=== PATIENT | female | born 1955 | race Caucasian/White ===

== ENCOUNTER 2023-03-14 13:21 | Outpatient (RCR) | payer OTHER, SELFPAY | END 2023-03-14 23:59 | disposition home or self-care (01) | LOC: RPT 13:21 | PROVIDERS: ATTENDING PHYSICIAN Internal Medicine; FAMILY PHYSICIAN Nurse Practitioner Family | DX: M25.561 Pain in right knee (principal); M25.569 Pain in unspecified knee (principal); R26.2 Difficulty in walking, not elsewhere classified; Z73.6 Limitation of activities due to disability | CPT/HCPCS: 97110; 97112 ==

== ENCOUNTER 2023-04-23 00:24 | Emergency (ER) | payer OTHER, SELFPAY ==
[2023-04-23 00:27] VITALS: BP 201/128
--- NOTE | 2023-04-23 01:45 | EDRN ---
Pt lying on stretcher with wet cloth on her head. Pt says she always gets pressure in her head and puts a cool cloth on it. Pt adds she has pain in her L groin that is pulling. Pt also has pain in neck 'the nerves are always changing.' Pt says
the pressure in her head tonight was 'very intense' and she was 'unable to get settled.' Pt started diltiazem yesterday morning. Pt says she started this 1 week ago for htn. Pt denies headache 'it's just pressure, I've had it for years it's just
very intense, squeezing. I always have ringing in my ears that seems to be changing it's pattern.' No cp, sob, n/v, fever/chills/cough.
[2023-04-23 01:52] VITALS: BP 166/72
--- NOTE | 2023-04-23 01:57 | EDRN ---
Pt declined ice pack for her head stating it would be too much. Pt lying supine, covered with a sheet. All lights in room turned off. Hartman and Kamar relaxation music put on TV for pt per her request. Pt holding cool wet cloth to her forehead.
[2023-04-23 02:00] VITALS: BP 167/71
--- NOTE | 2023-04-23 02:23 | ED.GENMED ---
History of Present Illness
General
Chief Complaint: Anxiety
Source: patient
Time Seen by Provider: 04/23/23 02:10
Nursing documentation reviewed up to this point in time: agreed with
Travel History
Have you had any contact with someone who has COVID-19?: No
Do you have any symptoms of coronavirus? Fever > 100 degrees, chills, cough, shortness of breath, sore throat, loss of taste or smell, muscle aches, or headache?: No
History of Present Illness
History of Present Illness:
67-year-old female presents with anxiety. She states that she has been 'thinking too much '. Patient is stressed. She states that she started taking chamomile and homeopathic anxiety remedies. Patient states that she has been anxious since
November, but has not started her homeopathic regimen until 5 days ago. Patient states that she had a headache which is similar to the previous headaches that she has had. She refuses lab work, imaging, or any treatments in the emergency
department. She is resting in the room with a wet towel on her forehead which she states is helping. Denies fever, chills, chest pain, or shortness of breath. Reports no suicidal or homicidal ideation, intent, or plan.
Vital signs are stable. Patient not hypoxic
Nursing note reviewed. I agree with nursing documentation up to this point in time.
Home Meds and allergies reviewed.
NUMBER AND COMPLEXITY OF PROBLEMS ADDRESSED AT THE ENCOUNTER
� Chronic conditions affecting care: Anxiety
� Acute Exacerbation and/or Progression of Chronic Illness:
� Differential Diagnosis includes: Anxiety, panic attacks
AMOUNT AND/OR COMPLEXITY OF DATA TO BE REVIEWED AND ANALYZED
I performed an independent evaluation of the following and my interpretation is:
EKG: EKG shows sinus tachycardia rate of 102 with otherwise normal intervals, normal axis. No evidence of acute ischemia present.
CT:
X-rays:
Ultrasound:
Laboratory Studies: Patient refused laboratory studies at this point
Other:
Review of other/old records:
Clinical information was obtained by an independent historian:
Prescriptions/Medications Considered but not given:
Further testing considered but not performed:
RISK OF COMPLICATIONS AND/OR MORBIDITY OR MORTALITY OF PATIENT MANAGEMENT
Social determinants of health affecting care: Good Social Support
Discussion with other providers:
Escalation of care including admission/observation vs risk of discharge considered:
CRITICAL CARE NOTE:
Total Time (exclusive of procedures):
Update:
Past History
Past History
ED Past Medical History: HTN, NIDDM (?) and Other (Diverticulosis, noncompliant with medication)
Social History
Tobacco: Non-smoker
Alcohol: Former
Drug: None
Living: with family
Employment: Other
Family History
Family History: Other
Phy Exam
General Physical Exam
General Presentation: well appearing and mild distress
General age: appears stated age
General Skin: warm and dry
General Habitus: normal
General Mental: alert
Cardiovascular Exam
Cardiovascular Exam: regular rate/rhythm and no edema
Pulmonary Exam
Pulmonary Exam: lungs clear and no respiratory distress
Neurological Exam
Neurological Exam: alert
Skin Exam
Skin Exam: normal color and warm/dry
Psychiatric Exam
Psychiatric Exam: normal mood/affect
Course
Orders/Labs/Results
Orders:
Orders
04/23/23 00:29
Electrocardiogram (*1) Urgent
Reason for Study: Hypertension, Benign
EKG- Treatment ONCE
Vital Signs
Initial and Last Documented VS:
Initial Vital Signs
Temp Pulse Resp BP Pulse Ox
98 F 116 18 201/128 100
04/23/23 00:27 04/23/23 00:27 04/23/23 00:27 04/23/23 00:27 04/23/23 00:27
Last Documented Vital Signs
Temp Pulse Resp BP Pulse Ox
98 F 78 12 145/69 100
04/23/23 00:27 04/23/23 02:30 04/23/23 02:30 04/23/23 02:30 04/23/23 00:27
*Critical Care Note
Total Time (30-74mins, 75-104mins- exclusive of procedures): Not Applicable
Update Note
Update Note:
04/23/2023 0243 AM: Patient is getting dressed and ready to leave. She still does not want any further testing done. She does have a holistic treatment plan that she wishes to adhere to. Discussed return to ER instructions with.
ED Attending Note
-
Portions of this chart may have been created with voice recognition software.� Occasional wrong word or��sound alike� substitutions may have occurred due to the inherent limitations of voice recognition software.
Discharge Plan
Departure
Patient Disposition: Home (Routine Discharge)
Date of Disposition: 04/23/23
Time of Disposition: 02:44
Patient with high blood pressure during this ER visit?: Yes
Condition: Good
Discharge Problem:
Anxiety, Hypertension
Instructions: Anxiety, Adult (DC), BLOOD PRESSURE
Prescriptions:
No Action
Eliquis 5 mg Tablet
5 mg PO BID Qty: 60 0RF
diltiazem HCl
1 tab PO DAILY
Patient Comments:
pt does not know mg and says she started this 04/16/23
Referrals:
Contreras Eastman CRNP [Family Provider] - Next open appointment
Activity Restrictions/Additional Instructions:
It was a pleasure meeting you and taking part in your care. We hope for your continued healing and wellness.
Please read discharge instructions in their entirety. However, they are for general education and may not describe your exact diagnosis at discharge. Information on your ER visit and medical conditions were discussed with you along with appropriate
follow up information...
If indicated, please take your medications as instructed and indicated on discharge paperwork.
Please schedule a follow up appointment as directed. Call to schedule an appointment
Please return to the emergency department with ANY change in, persisting, or worsening of symptoms. If any of your symptoms do not improve, or persist, or become more severe within 6-12 hours, please return to the emergency department for further
care.
Please return to the emergency department if you develop a headache, neck pain/stiffness, fever greater than 100.4F, chest pain, shortness of breath, persistent nausea, vomiting, slurred speech, difficulty walking, numbness/tingling, weakness, signs
of infection or any other symptoms that are worrisome to you.
If you have any questions or concerns please do not hesitate to call the Hospital at
Interventions
Interventions:
*Risk Screen - Suicide Last Done: 04/23/23 00:27
*General Assessment Last Done: 04/23/23 01:42
*Neglect/Abuse Screening Last Done: 04/23/23 00:27
ED- Fall Risk Assessment Last Done: 04/23/23 01:45
*ED COVID-19 Vaccine History Last Done: 04/23/23 01:42
*Nursing Disposition Last Done: 04/23/23 02:45
ED-Psychological Assessment Last Done: 04/23/23 01:56
Discharge Date and Time
Discharge Date/Time: 04/23/23 02:45
[2023-04-23 02:30] VITALS: BP 145/69
--- NOTE | 2023-04-23 02:41 | EDRN ---
Pt called and asked to go to the bathroom. Pt says she feels better and is ready to go home. Dr Kim informed and will discharge pt.
== END 2023-04-23 02:45 | disposition home or self-care (01) ==
LOC: EMR 00:24
PROVIDERS: EMERGENCY PHYSICIAN Student in an Organized Health Care Education/Training Program; FAMILY PHYSICIAN Nurse Practitioner Family
DX: F41.9 Anxiety disorder, unspecified (principal); I10 Essential (primary) hypertension
CPT/HCPCS: 99283; 93005

== ENCOUNTER 2023-05-19 18:28 | Inpatient (IN) | payer OTHER, SELFPAY ==
[2023-05-19] VITALS (23 sets, daily range): BP systolic 96–198; BP diastolic 46–95; BMI 22.6
--- NOTE | 2023-05-19 16:56 | ED.GENMED ---
History of Present Illness
General
Chief Complaint: Bowel Problem
Source: patient
Exam Limitations: clinical condition
Time Seen by Provider: 05/19/23 16:45
Nursing documentation reviewed up to this point in time: agreed with
Travel History
Have you had any contact with someone who has COVID-19?: No
Do you have any symptoms of coronavirus? Fever > 100 degrees, chills, cough, shortness of breath, sore throat, loss of taste or smell, muscle aches, or headache?: No
History of Present Illness
History of Present Illness:
67-year-old female came to triage states she has some constipation lymphatics or backing out no bowel movement for few days right better she was vomiting coffee-ground like material, past medical history is unclear denies alcohol denies NSAIDs may
be taking Eliquis, unconfirmed, denies any prior abdominal surgeries
Past History
Past History
ED Past Medical History: HTN, NIDDM (?) and Other (Diverticulosis, noncompliant with medication)
Social History
Tobacco: Non-smoker
Alcohol: Former
Drug: None
Living: with family
Employment: Other
Family History
Family History: Other
Review of Systems
Review of Systems
All Other Systems: Not applicable
Phy Exam
Physical Exam
Physical Exam:
Physical Exam
General: Chronically ill-appearing vomiting dark material
Neck: No no jaundice
Heart: Tachycardic
Lungs: no acute respiratory distress. clear bilaterally
Abdomen: Soft mild diffuse
Neuro: Disoriented moves all extremities
Skin: no rash
Psychiatric: Odd affect,
Extremities: no edema.
Course
Orders/Labs/Results
Orders:
Orders
05/19/23 16:53
Iohexol [Omnipaque] See Protocol PO NOW STA
05/19/23 16:54
Electrocardiogram (*1) Urgent
Reason for Study: Fatigue / Weakness
EKG- Treatment ONCE
05/19/23 16:55
Ondansetron Injectable [Zofran] 4 mg IV NOW STA
Pantoprazole [Protonix IV] 40 mg IV NOW STA
05/19/23 17:03
Type+Screen Urgent
Ammonia Urgent
Complete Blood Count/With Diff Urgent
Comprehensive Metabolic Panel Urgent
Cortisol, Random Urgent
Comment: ADD ON
Lipase Urgent
Magnesium Urgent
PTT Urgent
Prothrombin Time Urgent
Serum Osmolality Urgent
Comment: ADD ON
TSH Urgent
Comment: ADD ON
05/19/23 18:00
3% Sodium Chloride 250 ml [Sodium Chloride 3%] 250 ml IV ONCE
05/19/23 18:03
Add On- LAB Urgent
Tests Added?: Serum osm, cortisol, TSH
05/19/23 18:06
Basic Metabolic Panel Urgent
05/19/23 18:09
CT Head W/o Iv Contrast Urgent
Comment:
Reason For Exam: coma
CR Chest Portable - 1 View Urgent
Comment:
Reason For Exam: coma
Reason Study Needs to be Portable: Patient Unstable
05/19/23 18:16
Admit/Transfer Patient As Directed
Co-Sign Provider:
Level of Care: Inpatient admission
Assign to:: ICU
Physician / Group: Cruzito
Diagnosis: Severe hyponatremia, coma
Reason for Hospitalization: hyponatremia
Expected length of stay greater than two midnights?: Yes
ELOS- Estimated Length of Stay in days: 5
I certify the patient meets the requirements for IP care: Yes
Urine Osmolality Random [Osmolality, Random Urine] Stat
Urine Sodium Stat
3% Sodium Chloride 250 ml [Sodium Chloride 3%] 250 ml IV ONCE
05/19/23 18:18
Code Status As Directed
Resuscitation Status: Full Code
05/19/23 18:53
ABG [Arterial Blood Gas] Urgent
%Oxygen/Room Air: ra
Abnormal Lab Results
05/19/23 05/19/23
17:03 18:06
RBC 3.83 L 10^6/uL
(4.20-5.40)
Hgb 11.8 L g/dL
(12.0-16.0)
Hct 32.6 L %
(37.0-47.0)
Absolute Lymphs (auto) 0.7 L 10^3/uL
(1.2-3.4)
Neutrophils % 78.9 H %
(42.2-75.2)
Lymphocytes % 11.7 L %
(20.5-51.1)
PT 15.4 H Sec
(11.4-14.6)
Sodium 107 L* mmol/L 108 L* mmol/L
(135-145) (135-145)
Potassium 3.4 L mmol/L 3.0 L mmol/L
(3.5-5.1) (3.5-5.1)
Chloride 80 L mmol/L 79 L mmol/L
(98-107) (98-107)
Carbon Dioxide 18 L mmol/L 15 L mmol/L
(22-30) (22-30)
Creatinine 0.4 L mg/dL 0.4 L mg/dL
(0.6-1.0) (0.6-1.0)
Glucose 161 H mg/dl 181 H mg/dl
(70-99) (70-99)
Calcium 8.2 L mg/dl 8.1 L mg/dl
(8.4-10.2) (8.4-10.2)
Magnesium 1.3 L mg/dl
(1.6-2.3)
Ammonia < 9 L umol/L
(9-30)
05/19/23 17:03
05/19/23 18:06
Vital Signs
Initial and Last Documented VS:
Initial Vital Signs
Temp Pulse Resp BP Pulse Ox
98.1 F 103 20 198/95 100
05/19/23 14:41 05/19/23 14:41 05/19/23 14:41 05/19/23 14:41 05/19/23 14:41
Last Documented Vital Signs
Temp Pulse Resp BP Pulse Ox
98.1 F 115 24 187/69 86
05/19/23 14:41 05/19/23 19:15 05/19/23 19:15 05/19/23 19:15 05/19/23 19:15
Procedures
Intubations
Procedure completed by: Cheli /Abel
Method of Intubation: glidescope
Tube size (cm): 7.5
Placement confirmed by: auscutation and capnography
Breath sounds after intubation: equal
Intubation complications: no complications
MDM/Problems Addressed
Differential Diagnosis Includes:
Electrolyte abnormality dehydration bowel obstruction intoxication
MDM/Problems Addressed:
Confusion volume
Chronic conditions affecting care: DM, HTN and Arrhythmia
Acute Exacerbation and/or Progression of Chronic Illness: DM, HTN and Arrhythmia
*Radiology
Radiology exam reviewed: preliminary read by ED provider
*Pulse Oximetry
Patient hypoxic: no
*EKG
Interpreted by ED Provider?: Yes
Interpretation: abnormal
Comparison EKG: no comparison EKG present
Heart Rate: 78
Rate: normal
Rhythm: sinus
Ischemia: non-specific ST changes
*Fisher Hand Line Interpretation
Rate: normal
Interpretation: normal
Heart Rate: 78
Rhythm: sinus
*Critical Care Note
Total Time (30-74mins, 75-104mins- exclusive of procedures): 35
Update Note
Update Note:
6 PM labs are coming back significant hyponatremia patient now with decreased responsiveness sugar noted no seizure-like activity message sent to hospitalist and nephrology
Will start 3% saline, check CT of the head prognosis appears guarded
CRITICAL CARE STATEMENT: A total of 35 minutes of critical care time was provided for this patient. This includes management of unstable vital signs, evaluation of the patient at bedside, reviewing the patient's pertinent medical records discussion
with EMS providers and patient's family in addition to discussion with consultants, review of old EKGs and review of pertinent medical records. This time with separate from time utilized to perform the aforementioned documented procedures
7:30 PM update patient now seizing did receive 3% given lorazepam nephrology at bedside, will be intubated for airway protection will check CT of the head as she is on Eliquis we believe a friend is at bedside states she does drink a lot of fluids
takes a lot of natural medications and remedies
Intubated without difficulty used succinylcholine propofol
ED Attending Note
-
Portions of this chart may have been created with voice recognition software.� Occasional wrong word or��sound alike� substitutions may have occurred due to the inherent limitations of voice recognition software.
Discharge Plan
Departure
Patient Disposition: Admit
Date of Disposition: 05/19/23
Time of Disposition: 19:13
Admit to: ICU
Presentation/result/management discussed w/ accepting MD/DO: Hospitalist
Patient with high blood pressure during this ER visit?: No
Condition: Critical
Covid-19: Not Applicable
Discharge Problem:
Acute hyponatremia, Seizure, Respiratory failure
Interventions
Interventions:
*Risk Screen - Suicide Last Done: 05/19/23 17:13
*General Assessment Last Done: 05/19/23 14:41
*Neglect/Abuse Screening Last Done: 05/19/23 17:13
*ED COVID-19 Vaccine History Last Done: 05/19/23 14:41
EN-Usmomm-Svrtolggvn Assessment Last Done: 05/19/23 17:13
[2023-05-19] MEDS: ZOFRAN 4 MG IV (16:59)
[2023-05-19] MEDS: OMNIPAQUE 50 ML PO (17:00)
[2023-05-19] MEDS: PROTONIX IV 40 MG IV (17:00)
[2023-05-19 17:17] LABS: % Basophils 0.6 % (0-2); % Eosinophils 0.2 % (0-6); % Immature Granulocytes 0.3 % (0-0.5); % Lymphocytes 11.7 % (20.5-51.1); % Monocytes 8.3 % (1.7-9.3); % Neutrophils 78.9 % (42.2-75.2); Absolute Lymphocytes 0.7 10^3/uL (1.2-3.4); Absolute Monocytes 0.5 10^3/uL (0.1-0.6); Absolute Neutrophils 4.9 10^3/uL (1.4-6.5); Hematocrit 32.6 % (37.0-47.0); Hemoglobin 11.8 g/dL (12.0-16.0); Mean Corp Hgb Conc. 36.2 g/dL (33.0-37.0); Mean Corpuscular Hgb 30.8 pg (27.0-31.0); Mean Corpuscular Volume 85.1 fL (81.0-99.0); Mean Platelet Volume 8.8 fL (7.4-10.4); Nucleated Red Blood Cells % 0 %; Platelet Count 243 10^3/uL (130-400); Red Blood Cell Count 3.83 10^6/uL (4.20-5.40); Red Cell Dist. Width 12.5 % (11.5-14.5); White Blood Cell Count 6.2 10^3/uL (4.8-10.8)
[2023-05-19 17:26] LABS: Ammonia < 9 umol/L (9-30)
[2023-05-19 17:35] LABS: INR 1.24; PT 15.4 Sec (11.4-14.6)
[2023-05-19 17:36] LABS: APTT 33.9 Sec (23.4-35.0)
[2023-05-19 17:55] LABS: ALT (SGPT) 17 U/L (0-35); AST (SGOT) 24 U/L (14-36); Albumin 4.3 g/dl (3.5-5.0); Alkaline Phosphatase 70 U/L (38-126); Blood Urea Nitrogen 10 mg/dl (7-17); Calcium 8.2 mg/dl (8.4-10.2); Carbon Dioxide 18 mmol/L (22-30); Chloride 80 mmol/L (98-107); Estimated Creatinine Clearance 68 ml/min; Glucose 161 mg/dl (70-99); Lipase 280 U/L (23-300); Potassium 3.4 mmol/L (3.5-5.1); Sodium 107 mmol/L (135-145); Total Bilirubin 0.5 mg/dl (0.2-1.3); Total Protein 6.5 g/dl (6.3-8.2); eGFR > 60.00
--- NOTE | 2023-05-19 18:25 | HPS.HSE ---
Family Physician
-
Family Physician: SNEHA Ruvalcaba
Chief Complaint
-
Constipation
History of Present Illness
67-year-old female came into the emergency room with complaints of constipation and vomiting.
I could not get any information from the patient as she is obtunded. Information gathered by chart review and speaking with the ER staff.
Medical History
Past Medical History
Past Medical History: Reports Other
Additional Past Medical History:
DM2
Essential hypertension
Paroxysmal atrial fibrillation
Hyperlipidemia
Depression
Anxiety
Past Surgical History: Reports None
Social History
Unable to obtain full social history at this time due to: Patient Non-verbal
Family History
Family History: Not pertinent
Allergies / Home Medications
Allergies reflects when Allergies were last updated in [facility].
Home Medications with original date entered in [facility]
Allergy/Medication List:
Allergies
Allergy/AdvReac Type Severity Reaction Status Date / Time
No Known Allergies Allergy Verified 05/19/23 14:46
Home Medications
apixaban 5 mg tablet (Eliquis) 5 mg PO BID Blood clot prevention/tx #60 tabs 11/24/22
diltiazem HCl 1 tab PO DAILY 04/23/23
If medication reconciliation has not been performed, why?: Unresponsive
Review of Systems
-
Unable to obtain full review of systems at this time due to: Acuity
Physical Exam
Vital Signs
Vital Signs
Temp Pulse Resp BP Pulse Ox
98.1 F 102 22 160/73 100
05/19/23 14:41 05/19/23 17:15 05/19/23 17:15 05/19/23 17:07 05/19/23 17:08
Physical Exam
General: Well Developed, Well Nourished, No Apparent Distress, Comfortable and Other (Obtunded)
HEENT: NormoCephalic and Anicteric
Respiratory: Clear
Cardiac: S1/S2 and Regular Rhythm
GI: Soft, Non Tender and Non Distended
Musculoskeletal: No Clubbing, No Cyanosis and No Edema
Skin: Warm and Dry
Neuro: Sedated
Hematologic/Lymphatic: No Lymphadenopathy
Psych: Calm
Laboratory Results
-
05/19/23 17:03
Laboratory Results
PT 15.4 Sec (11.4-14.6) H 05/19/23 17:03
INR 1.24 05/19/23 17:03
APTT 33.9 Sec (23.4-35.0) 05/19/23 17:03
Total Bilirubin 0.5 mg/dl (0.2-1.3) 05/19/23 17:03
AST 24 U/L (14-36) 05/19/23 17:03
ALT 17 U/L (0-35) 05/19/23 17:03
Alkaline Phosphatase 70 U/L (38-126) 05/19/23 17:03
Lipase 280 U/L (23-300) 05/19/23 17:03
Impression/Plan
-
Acute TME -currently obtunded, likely due to severe hyponatremia. Rule out stroke, seizures. Check CT head. Check ABG. Discussed with ED staff. Admit to ICU.
Profound hyponatremia -sodium 107. 3% saline started. Consult nephrology. Check urine osmolality, urine sodium. Fluid restriction.
Hypokalemia -replete intravenously. Check magnesium.
Normocytic anemia -appears chronic. Unclear etiology. Monitor for now.
Paroxysmal atrial fibrillation -appears to be on Eliquis.
Essential hypertension -blood pressure elevated. Need accurate home medication list.
DM2 with hyperglycemia -need to clarify home regimen. Check hemoglobin A1c.
Depression/anxiety
Full code -presumed.
--- NOTE | 2023-05-19 18:34 | PHANOTE ---
Med Rec Note:
Pt obtunded, home med list compiled from Dr Torres and ROGEW.
--- NOTE | 2023-05-19 18:43 | W.CON.NEPH ---
Consultation
-
Date/Time Consultation Requested: 05/19/231809
Date/Time Consultation Performed: 05/19/231824
Requesting Provider: Annabelle Jordan
Performing Provider: Kobe Fernando
Reason for Consultation: Hyponatremia
Medical History
-
Chief Complaint: constipation
History of Present Illness:
67-year-old female who has history of hypertension, diabetes, depression, anxiety, hyperlipidemia, Afib med noncompliance who was seen by our team in November 2022 for FANTA, hyponatremia, Rhabdo. She also noted to have paranoid and was deemed to have
capacity by psych. SHe was her in ER on 04/22 for anxiety but refused w/u and left ER. Today she returns constipation and has ?hematemesis in ER, slowly she became unresponsive. Sodium noted 107. Spoke to Friend Sandra Feldman who is listed as POA on
phone reportedly pt was following holistic medicine and not if she was taking prescribed meds from the hospital. Friend reports pt drinks plenty of fluids. History is limited at this point, most obtained from chart, nurse, ER and Friend.
Past Medical History
hypertension, diabetes, Pafib
hyperlipidemia, depression, anxiety, arthritis.
Social History
Tobacco: Non-Smoker
Alcohol: None
Personal: Single
Family History
Family History: Unable to Obtain
Allergies / Home Medications
Allergy/AdvReac Type Severity Reaction Status Date / Time
No Known Allergies Allergy Verified 05/19/23 14:46
�Medication �Instructions �Recorded �Confirmed �Type
apixaban 5 mg tablet (Eliquis) 5 mg PO BID Blood clot 11/24/22 05/19/23 Rx
prevention/tx #60 tabs
diltiazem HCl 120 mg 120 mg PO DAILY 05/19/23 05/19/23 History
capsule,extended release 24 hr
Review of Systems
-
unable to obtain
Physical Exam
Vital Signs
Vital Signs
Temp Pulse Resp BP Pulse Ox
98.1 F 78 18 150/77 95
05/19/23 14:41 05/19/23 18:30 05/19/23 18:30 05/19/23 17:55 05/19/23 18:30
Lab Results
WBC 6.2 10^3/uL (4.8-10.8) 05/19/23 17:03
RBC 3.83 10^6/uL (4.20-5.40) L 05/19/23 17:03
Hgb 11.8 g/dL (12.0-16.0) L 05/19/23 17:03
Hct 32.6 % (37.0-47.0) L 05/19/23 17:03
Plt Count 243 10^3/uL (130-400) 05/19/23 17:03
eGFR > 60.00 05/19/23 17:03
Albumin 4.3 g/dl (3.5-5.0) 05/19/23 17:03
Laboratory Results - last 24 hr
05/19/23 05/19/23
17:03 18:06
WBC 6.2
RBC 3.83 L
Hgb 11.8 L
Hct 32.6 L
MCV 85.1
MCH 30.8
MCHC 36.2
RDW 12.5
Plt Count 243
MPV 8.8
Abs Immat Gran (auto) 0.0
Absolute Neuts (auto) 4.9
Absolute Lymphs (auto) 0.7 L
Absolute Monos (auto) 0.5
Absolute Eos (auto) 0.0
Absolute Basos (auto) 0.0
Immature Gran % 0.3
Neutrophils % 78.9 H
Lymphocytes % 11.7 L
Monocytes % 8.3
Eosinophils % 0.2
Basophils % 0.6
Nucleated RBC % 0
PT 15.4 H
INR 1.24
APTT 33.9
Sodium 107 L* 108 L*
Potassium 3.4 L
Chloride 80 L 79 L
Carbon Dioxide 18 L 15 L
BUN 10 10
Creatinine 0.4 L 0.4 L
Estimated Creat Clear 68 68
eGFR > 60.00 > 60.00
Glucose 161 H 181 H
Calcium 8.2 L 8.1 L
Total Bilirubin 0.5
AST 24
ALT 17
Alkaline Phosphatase 70
Ammonia < 9 L
Total Protein 6.5
Albumin 4.3
Lipase 280
Physical Exam
General: Other (non responsive)
HEENT: Anicteric and Other (equal pupils)
Respiratory: Clear
Cardiac: S1/S2 and Regular Rate/Rhythm
Abdomen: Soft, Nontender and Nondistended
Musculoskeletal: No Edema
Skin: No Rash and No Cyanosis
Neuro: Other (unresponsive)
Psych: Other (unresponsive)
Assessment/Plan
-
IMP:
Acute TME
Profound life threatening hyponatremia -sodium 107
Hypokalemia
Normocytic anemia
Paroxysmal atrial fibrillation
Essential hypertension
DM2 with hyperglycemia
Depression/anxiety
PLan:
A/w constipation and vomiting in ER, later became obtunded, sodium 107
Severe life threatening hyponatremia-no clear etiology, per friend pt drinks lot of fluids
given acute MS change have no other option than giving her bolus of 3% 100cc
will need U osm, U na CHIKA
CT head pending
goal of correction 6-8meq/day strictly
high risk of CPM , sodium goal probably at 112 tonight
check TSH, cortisol in am
BP stable
would need Q2hr sodium for now
poor prognosis
spoke with ALANNA feldman Friend on phone
d/w ER, nursing
7:15pm:
Pt has <1min of gen tonic clonic SZ just now, s/p ativan
likely need neuro consult
3% bolus is completed
[2023-05-19 18:56] LABS: Sodium 108 mmol/L (135-145)
[2023-05-19 18:57] LABS: Blood Urea Nitrogen 10 mg/dl (7-17); Calcium 8.1 mg/dl (8.4-10.2); Carbon Dioxide 15 mmol/L (22-30); Chloride 79 mmol/L (98-107); Estimated Creatinine Clearance 68 ml/min; Glucose 181 mg/dl (70-99); eGFR > 60.00
[2023-05-19] MEDS: SODIUM CHLORIDE 3% 100 ML IV (19:00)
[2023-05-19 19:04] LABS: B.E. -3.5 mmol/L; HCO3 19.9 mmol/L (21-28); O2 Saturation % 98.9 % (94-98); PCO2 30 mmHg (32-35); PO2 88 mmHg (83-108); pH 7.43 (7.35-7.45)
[2023-05-19 19:18] LABS: Magnesium 1.3 mg/dl (1.6-2.3)
[2023-05-19] MEDS: ATIVAN 2 MG IV ×2 (19:25→20:32)
[2023-05-19] MEDS: KEPPRA 2000 MG IV (19:26)
[2023-05-19] MEDS: KCL 270 MEQ IV (19:27)
[2023-05-19] MEDS: DIPRIVAN 100 MG IV (19:36)
--- NOTE | 2023-05-19 19:36 | W.PN.UPDATE ---
Update Note
Progress Note Update
updated POA at bedside
aware of critical situation
she will look for living will
[2023-05-19] MEDS: ANECTINE 100 MG IV (19:37)
[2023-05-19 19:50] LABS: TSH 2.24 uIU/ml (0.47-4.68)
[2023-05-19] MEDS: DIPRIVAN 100 IV (19:50)
[2023-05-19 19:52] LABS: Osmolality Serum 231 mOsm/kg (275-300)
[2023-05-19 20:30] LABS: Triglycerides 53 mg/dl (10-149)
[2023-05-19 20:57] LABS: Osmolality Urine 536 mOsm/kg (300-900)
[2023-05-19 21:07] LABS: Urine Sodium 81 mmol/L (30-90)
[2023-05-19 21:30] LABS: Cortisol, Random 68.6 ug/dl
[2023-05-19 21:43] LABS: B.E. -1.7 mmol/L; HCO3 21.5 mmol/L (21-28); PCO2 31 mmHg (32-35); PO2 238 mmHg (83-108); pH 7.45 (7.35-7.45)
[2023-05-19 21:47] LABS: Blood Urea Nitrogen 8 mg/dl (7-17); Calcium 7.6 mg/dl (8.4-10.2); Carbon Dioxide 19 mmol/L (22-30); Chloride 86 mmol/L (98-107); Estimated Creatinine Clearance 68 ml/min; Glucose 149 mg/dl (70-99); Potassium 4.1 mmol/L (3.5-5.1); Sodium 111 mmol/L (135-145); eGFR > 60.00
[2023-05-19] MEDS: SUBLIMAZE 100 IV (22:27)
[2023-05-19] MEDS: SUBLIMAZE 55 MCG IV (22:29)
[2023-05-19] MEDS: SODIUM CHLORIDE 3% 250 IV (22:32)
--- NOTE | 2023-05-19 22:45 | PTCARENOTE ---
Rec'd patient from ED around 2100. Patient intubated. Sedated on Propofol gtt. Pupils equal and reactive; 3mm. Withdrawing to painful stimuli. Fentanyl gtt initiated for pain control and Propofol gtt titrated down. NSR on tele monitor. VSS. #7.5
ett, positioned at 21 cm. A/C 14/400/5/40%. Lung sounds coarse throughout. OGT placed to low intermittent suction. Secretions brown/red. Oral secretions bloody as well. Tongue bruised/lacerated from biting it during seizure. No seizure activity
noted since admission to ICU. Álvarez in place for I/O. Discussed status with Dr. Cabral. Q2hr BMPs and relay results. [address] Cabral advised RN to initiate 3% saline gtt as ordered and hold if Na exceeds 113.
[2023-05-19] MEDS: NOVOLOG FLEXPEN-LOW RESISTANCE SC (23:25)
[2023-05-19 23:33] LABS: Glucose - Point of Care 141 mg/dl (70-99)
[2023-05-19 23:39] LABS: Blood Urea Nitrogen 8 mg/dl (7-17); Calcium 7.9 mg/dl (8.4-10.2); Carbon Dioxide 20 mmol/L (22-30); Chloride 86 mmol/L (98-107); Estimated Creatinine Clearance 68 ml/min; Glucose 139 mg/dl (70-99); Potassium 4.7 mmol/L (3.5-5.1); Sodium 109 mmol/L (135-145); eGFR > 60.00
[2023-05-20] VITALS (84 sets, daily range): BP systolic 79–164; BP diastolic 43–68; PULSE 140; BMI 22.6
[2023-05-20 01:45] LABS: Blood Urea Nitrogen 7 mg/dl (7-17); Carbon Dioxide 19 mmol/L (22-30); Chloride 89 mmol/L (98-107); Estimated Creatinine Clearance 68 ml/min; Glucose 121 mg/dl (70-99); Potassium 4.5 mmol/L (3.5-5.1); Sodium 112 mmol/L (135-145); eGFR > 60.00
--- NOTE | 2023-05-20 02:30 | PTCARENOTE ---
Addendum entered by Briana Orta RN 05/20/23 03:24:
Urine osmolality 92 (previously 536). Repeat BMP pending.
Original Note:
Dr. Cabral notified of large amount of clear urine output. RN ordered to place 3% saline on hold and check urine osmolality.
[2023-05-20 02:52] LABS: Osmolality Urine 92 mOsm/kg (300-900)
[2023-05-20 03:18] LABS: % Basophils 0.1 % (0-2); % Immature Granulocytes 0.3 % (0-0.5); % Lymphocytes 6.3 % (20.5-51.1); % Monocytes 4.8 % (1.7-9.3); % Neutrophils 88.5 % (42.2-75.2); Absolute Lymphocytes 0.6 10^3/uL (1.2-3.4); Absolute Monocytes 0.5 10^3/uL (0.1-0.6); Absolute Neutrophils 8.9 10^3/uL (1.4-6.5); Hematocrit 28.1 % (37.0-47.0); Hemoglobin 10.3 g/dL (12.0-16.0); Mean Corp Hgb Conc. 36.7 g/dL (33.0-37.0); Mean Corpuscular Hgb 31.1 pg (27.0-31.0); Mean Corpuscular Volume 84.9 fL (81.0-99.0); Mean Platelet Volume 8.9 fL (7.4-10.4); Nucleated Red Blood Cells % 0 %; Platelet Count 196 10^3/uL (130-400); Red Blood Cell Count 3.31 10^6/uL (4.20-5.40); Red Cell Dist. Width 12.3 % (11.5-14.5)
[2023-05-20 03:36] LABS: Blood Urea Nitrogen 7 mg/dl (7-17); Calcium 8.1 mg/dl (8.4-10.2); Carbon Dioxide 20 mmol/L (22-30); Chloride 90 mmol/L (98-107); Estimated Creatinine Clearance 68 ml/min; Glucose 107 mg/dl (70-99); Potassium 4.5 mmol/L (3.5-5.1); Sodium 114 mmol/L (135-145); eGFR > 60.00
--- NOTE | 2023-05-20 04:03 | PTCARENOTE ---
Lab results relayed to Dr. Cabral. DDAVP ordered.
[2023-05-20] MEDS: DDAVP 50.5 MCG IV (04:27)
[2023-05-20] MEDS: LEVOPHED 250 IV (05:38)
[2023-05-20 05:59] LABS: Blood Urea Nitrogen 7 mg/dl (7-17); Carbon Dioxide 21 mmol/L (22-30); Chloride 90 mmol/L (98-107); Estimated Creatinine Clearance 68 ml/min; eGFR > 60.00
[2023-05-20 06:12] LABS: Calcium 8.5 mg/dl (8.4-10.2); Glucose 96 mg/dl (70-99); Potassium 4.4 mmol/L (3.5-5.1); Sodium 115 mmol/L (135-145)
[2023-05-20 06:15] LABS: Glucose - Point of Care 97 mg/dl (70-99)
[2023-05-20] MEDS: NOVOLOG FLEXPEN-LOW RESISTANCE SC ×4 (06:16→23:32)
--- NOTE | 2023-05-20 07:12 | W.PN.HOSP.TC ---
Today's Communication/Plan
-
Neurology consult
IV magnesium
Close monitoring of electrolytes
Ranch Hand Supervisor consult
Assessment / Plan
Assessment / Plan
Gen-intubated, sedated
HEENT-NC, AT, anicteric, clear oral mm
Neck-supple
CV-reg, no M, +S1/S2
Lungs-clear B/L
Abd-soft, NT, ND
Ext-no edema
Musculoskeletal-no cyanosis, clubbing
Skin-warm and dry
Acute TME -obtunded in the emergency room. Etiology is profound hyponatremia. Seizures also contributor likely. Currently sedated, intubated. CT head completed, report pending. Consult neurology given concern for seizures noted in the emergency
room. Given a loading dose of Keppra and 2 doses of lorazepam in the emergency room.
Acute hypoxic respiratory failure -intubated for airway protection in the emergency room due to comatose state. Ranch Hand Supervisor consulted. Monitor in ICU.
Profound hyponatremia -sodium 107 on arrival. Latest sodium 115 this morning. Monitor closely. Urine osmolality 536, urine sodium 81 on admission. 3% saline per nephrology. Reported history of polydipsia. Suspect she also has a component of
SIADH. TSH normal, random cortisol 68.
Hypotension/shock -not present on admission. Subsequently developed after intubation and sedation. On low-dose Levophed. Low suspicion of sepsis.
Hypokalemia -resolved.
Hypomagnesemia -1.3 on admission. Give IV magnesium sulfate. Recheck level later today.
Normocytic anemia -appears chronic. Unclear etiology. Monitor for now.
Paroxysmal atrial fibrillation -appears to be on Eliquis.
Essential hypertension -blood pressure elevated. Need accurate home medication list.
DM2 with hyperglycemia -need to clarify home regimen. Check hemoglobin A1c.
Depression/anxiety
Full code -presumed.
Anticipated Discharge: > 48 hours
Subjective/Interval History
-
Date of Service: May 20, 2023
Patient seen and examined. Intubated and sedated in ICU.
Objective Data
-
Labs:
Laboratory Results
05/19/23 05/19/23 05/19/23
21:15 21:35 23:15
WBC
Hgb
Hct
Plt Count
HCO3 21.5
Sodium 111 L* 109 L*
Potassium 4.1 D 4.7
Chloride 86 L 86 L
Carbon Dioxide 19 L 20 L
BUN 8 8
Creatinine 0.3 L 0.3 L
Glucose 149 H 139 H
Calcium 7.6 L 7.9 L
05/20/23 05/20/23 05/20/23
01:15 03:05 05:20
WBC 10.0
Hgb 10.3 L
Hct 28.1 L
Plt Count 196
HCO3
Sodium 112 L* 114 L* 115 L*
Potassium 4.5 4.5 4.4
Chloride 89 L 90 L 90 L
Carbon Dioxide 19 L 20 L 21 L
BUN 7 7 7
Creatinine 0.4 L 0.4 L 0.4 L
Glucose 121 H 107 H 96
Calcium 8.0 L 8.1 L 8.5
05/20/23 05/20/23 05/20/23
13:14 17:14 21:14
WBC
Hgb
Hct
Plt Count
HCO3
Sodium Pending Pending Pending
Potassium Pending Pending Pending
Chloride Pending Pending Pending
Carbon Dioxide Pending Pending Pending
BUN Pending Pending Pending
Creatinine Pending Pending Pending
Glucose Pending Pending Pending
Calcium Pending Pending Pending
Vital Signs:
Vital Signs
Temp Pulse Resp BP Pulse Ox
96.1 F L 59 14 113/54 100
05/20/23 03:40 05/20/23 06:30 05/20/23 06:30 05/20/23 06:30 05/20/23 06:30
I&O
05/19/23 05/20/23 05/21/23
06:59 06:59 06:59
Intake Total 530.8 / 530.8
Output Total 1850 / 1850
Balance -1319.2 / -1319.2
Review of Systems
-
Unable to obtain full review of systems at this time due to: Acuity and Patient Intubation
--- NOTE | 2023-05-20 08:00 | PTCARENOTE ---
Assumed care of pt at 0715 following shift report. Pt resting quietly on vent w/ settings as ordered (AC 14, 400, 40%, +5) POx 99-100%. No distress noted. Following gtt's infusing: Fentanyl at 50 mcg/min, Propofol at 15 mcg/kg/min, Levophed at 4
mcg/min. Álvarez patent and draining clear yellow urined. Bilateral wrist restraints in place to protect tubes/lines. OGt to LIWS w/ coffee ground/brown drainage. Hygiene, oral care, repositioning and comfort care provided. Safe environment
maintained.
--- NOTE | 2023-05-20 08:14 | CON.NEURO ---
Neuro Assessment/Plan
Assessment
IMPRESSIONS/RECOMMENDATIONS:
Abrupt change in mental status with profound hyponatremia, with suggested generalizing seizure
Plan
Would not initiate at this time antiseizure medication
Best treatment for prevention of seizure would be slow remediation of hyponatremia
Would check MRI of brain if patient fails to have significant recovery
No indication at this time patient would benefit from EEG evaluation
No indication at this time [facility] despite seizure activity as these are most likely secondary to metabolic disturbance
Will continue to follow peripherally.
Consultation
Order
Date of Consultation: 05/20/23
Requesting Provider: Hospitalist
Reason for Consult: Seizure
Subjective/Objective
Subjective Data
Date of Service: May 20, 2023
Patient presented to this hospital's emergency department with reports of coffee ground colored emesis. Subsequently, the patient was described as having reduced consciousness followed by an hour and a half later description of generalized
tonic-clonic movements. At that time, the patient was provided with lorazepam and intubated for airway protection. Duration of the seizure-like event was not described. It is unclear if the patient lost control of bowels or bladder at that time.
Patient subsequently found to have profound hyponatremia, and has had significant hyponatremia in 2022 without reported seizure.
Patient themselves is unable to provide her own medical history due to lack of responsiveness and intubation.
Objective Data
Vital Signs
Temp Pulse Resp BP Pulse Ox
37.2 C 59 14 113/54 100
05/20/23 07:27 05/20/23 06:30 05/20/23 06:30 05/20/23 06:30 05/20/23 06:30
Lab Results
05/20/23 03:05
PT 15.4 Sec (11.4-14.6) H 05/19/23 17:03
INR 1.24 05/19/23 17:03
APTT 33.9 Sec (23.4-35.0) 05/19/23 17:03
Sodium Cancelled 05/20/23 21:14
Potassium Cancelled 05/20/23 21:14
BUN Cancelled 05/20/23 21:14
Glucose Cancelled 05/20/23 21:14
Calcium Cancelled 05/20/23 21:14
Patient Allergies
No Known Allergies Allergy (Verified 05/19/23 14:46)
Review of Systems
-
Unable to obtain full review of systems at this time due to: Patient Intubation and Lethargy
History Source: Patient
All other systems: Reviewed and negative
Physical Exam
-
General: No Apparent Distress, Intubated, Appears Stated Age and Restrained
Eyes: OU Absent Papilledema, Able to visualize OU, Round OU, Jeff Conjunctivae and No Ptosis
HEENT: Anicteric and Moist Mucous Membranes
Neck: Full Range of Motion
Respiratory: No Dyspnea
Cardiac: No JVD
GI: Non-distended
Extremities: No Clubbing, No Cyanosis and No Edema
Psych: Unable to Assess
Extended Neurological Exam
Mood & Affect: Unable to Assess
Attention Span & Concentration: Lethargic (Maintains eyes closed with rapid eyelid closure after passive eyelid opening); Negative Interactive
Memory: Unable to Assess
Tremor: Hand Tremor Absent and Head Tremor Absent
Involuntary Movement: None
Speech: Unable to Assess
Cranial Nerve II: Left Eye: Pupillary Reactivity Unremarkable, Pupillary Size Unremarkable and Unable to Assess Visual Jones
Cranial Nerve II: Right Eye: Pupillary Reactivity Unremarkable, Pupillary Size Unremarkable and Unable to Assess Visual Jones
Cranial Nerves III, IV, : Extraocular Movement: Absent Doll's Eyes
Cranial Nerve V: Facial Sensation: Unable to Assess
Cranial Nerve VII: Facial Symmetry: Normal Facial Symmetry
Cranial Nerve VIII: Hearing: Unable to Assess
Cranial Nerves IX, X: Palate Movement: Unable to Assess
Cranial Nerve XI: Shoulder Shrug: Unable to Assess
Cranial Nerve XII: Tongue Protusion: Unable to Assess
Muscle Strength, Overall: Spontaneously Moves (All extremities and what appears to be full fashion by indirect evaluation)
Muscle Bulk & Tone: Bulk Unremarkable and Tone Unremarkable
Pronator Drift: Unable to Assess
Deep Tendon Reflexes: Trace Throughout
Cold Sensation: Unable to Assess
Vibration Sensation: Unable to Assess
Touch Sensation: Withdrawal to Pain
Coordination: Unable to Assess
Babinski Sign: Absent Bilaterally
Gait & Station: Unable to Assess
Data Reviewed
-
Labs: Report Reviewed
Reviewed with: Physician and Nurse
Old Records: Summarized
Medications
-
Active Medications
Generic Name Dose Route Start Last Admin
Trade Name Freq PRN Reason Stop Dose Admin
Dextrose 12.5 grams 05/19/23 21:14
Dextrose 50% (0.5 Grams/Ml) 50 Ml Syringe IV 06/16/23 21:13
[id number] PRN
hypoglycemia
Protocol
Enoxaparin Sodium 40 mg 05/20/23 18:00
Enoxaparin Sodium 40 Mg/0.4 Ml Syringe SC 06/17/23 17:59
QPM RODNEY
Fentanyl Citrate 50 mcg 05/19/23 23:14
Fentanyl (50 Mcg/Ml) 100 Mcg/2 Ml Ampul IV 06/02/23 23:13
[id number] PRN
see protocol
Protocol
Glucagon 1 mg 05/19/23 21:14
Glucagon 1 Mg Vial IM 06/16/23 21:13
PRN PRN
hypoglycemia
Protocol
Propofol 1,000,000 mcg in 100 mls @ 20 mls/hr 05/19/23 19:30
Diprivan IV
PER PROTOCOL RODNEY
Protocol
Propofol 1,000,000 mcg in 100 mls @ 6.624 mls/hr 05/19/23 19:47 05/19/23 19:50
Diprivan IV 05/20/23 10:52 100 mls
NOW STA Administration
20 MCG/KG/MIN
Fentanyl Citrate 1,000 mcg in 100 mls @ 0 mls/hr 05/19/23 22:15 05/19/23 22:27
Sublimaze IV 100 mls
PER PROTOCOL RODNEY Administration
Protocol
Per Protocol
Norepinephrine Bitartrate 4 mg in 250 mls @ 0 mls/hr 05/20/23 05:15 05/20/23 05:38
Levophed IV 250 mls
PER PROTOCOL RODNEY Administration
Protocol
Per Protocol
Magnesium Sulfate 4 gram in 100 mls @ 25 mls/hr 05/20/23 07:05
Magnesium Sulfate IV 05/20/23 11:04
NOW STA
Insulin Aspart 0 units 05/20/23 00:00 05/20/23 06:16
Insulin Aspart Low Resistance 300 Units/3 Ml Pen.Injctr SC 06/17/23 00:00 Not Given
Q6 RODNEY
Protocol
Polyethylene Glycol 17 grams 05/20/23 08:00
Polyethylene Glycol Powder 17 Grams Packet TUBE 06/17/23 07:59
DAILY RODNEY
Sodium Chloride 0 flush 05/19/23 22:00
Sodium Chloride 0.9% (Flush) Syringe IV 06/16/23 21:59
PER PROTOCOL RODNEY
Home Medications
�Medication �Instructions �Recorded
apixaban 5 mg tablet (Eliquis) 5 mg PO BID Blood clot 11/24/22
prevention/tx #60 tabs
diltiazem HCl 120 mg 120 mg PO DAILY 05/19/23
capsule,extended release 24 hr
Past History
Past History
ED Past Medical History: Arrthythmia (Atrial fibrillation), HTN, NIDDM (?), Psychiatric (Generalized anxiety disorder, major depression, paranoia with delusions, personality disorder) and Other (Diverticulosis, noncompliant with medication, cystic
liver, eczema, hyponatremia, rhabdomyolysis, pneumonia, colonic polyps)
ED Past Surgical History: Other (Carpal tunnel release)
Social History
Tobacco: Non-smoker
Alcohol: Former
Drug: None
Living: with family
Employment: Other
Family History
Family History: Other (Reviewed and noncontributory)
[2023-05-20 08:40] LABS: Blood Urea Nitrogen 7 mg/dl (7-17); Calcium 8.3 mg/dl (8.4-10.2); Carbon Dioxide 22 mmol/L (22-30); Chloride 88 mmol/L (98-107); Estimated Creatinine Clearance 68 ml/min; Glucose 99 mg/dl (70-99); Sodium 116 mmol/L (135-145); eGFR > 60.00
[2023-05-20] MEDS: MAGNESIUM SULFATE 100 IV (09:30)
[2023-05-20] MEDS: MIRALAX 17 GRAMS TUBE (10:10)
[2023-05-20] MEDS: D5W 1000 IV (10:11)
[2023-05-20 10:36] LABS: Glycohemoglobin (HgbA1c) 5.7 % (4.0-5.6)
--- NOTE | 2023-05-20 11:56 | CON.INTV ---
Consultation
Consultation Request
Date/Time Consultation Requested: 05/20/2023
Date/Time Consultation Performed: 05/20/2023
Requesting Provider: Dr. East
Performing Provider: Dr. Jose Black
Reason for Consultation: Hypercapnic respiratory failure/life-threatening hyponatremia
Medical History
-
History of Present Illness:
67-year-old woman with history of type 2 diabetes, hypertension, paroxysmal atrial fibrillation, bipolar disorder who came to the hospital complaining of constipation and vomiting. Information obtained from the chart as the patient not able to
provide history. Patient became lethargic and require intubation and mechanical ventilation. She was found to have severe life-threatening hyponatremia with a sodium of 107. Patient did develop seizures, was placed on mechanical ventilation.
Antiepileptic drugs were given.
3% saline was provided, nephrology and neurology are evaluated the patient as well.
There is no clear details of medical history. Apparently a friend says that she drinks a lot of water.
Currently not taking any medications as she was treating herself with holistic medicine.
Per records also there is reports of possible hematemesis. Patient apparently also bit her tongue due to seizures.
Past Medical History
Past Medical History: Other (Obtain old records, see assessment and plan)
Social History
Tobacco: Other ( unable to obtain, intubated on mechanical ventilation)
Family History
Family History: Unable to Obtain (On mechanical ventilation)
Allergies / Home Medications
Allergies
Allergy/AdvReac Type Severity Reaction Status Date / Time
No Known Allergies Allergy Verified 05/19/23 14:46
Home Medications
�Medication �Instructions �Recorded �Confirmed �Last Taken �Type
apixaban 5 mg tablet (Eliquis) 5 mg PO BID Blood clot 11/24/22 05/19/23 Unknown Rx
prevention/tx #60 tabs
diltiazem HCl 120 mg 120 mg PO DAILY 05/19/23 05/19/23 Unknown History
capsule,extended release 24 hr
Review of Systems
-
Unable to Obtain full review of systems at this time due to: Acuity
Vitals / Labs / Diagnostic Testing
Vital Signs
Temp Pulse Resp BP Pulse Ox
100.2 F 59 14 113/54 100
05/20/23 11:20 05/20/23 06:30 05/20/23 06:30 05/20/23 06:30 05/20/23 06:30
Lab Data
05/20/23 03:05
Laboratory Results
05/19/23 05/19/23 05/19/23
17:03 18:53 21:35
PT 15.4 H
INR 1.24
APTT 33.9
pH 7.43 7.45
pCO2 30 L 31 L
pO2 88 238 H
HCO3 19.9 L 21.5
O2 Delivery Level
Diagnostic Testing:
Physical Exam
-
HEENT: Normocephalic
Cardiovascular: S1/S2 and Regular Rhythm
Respiratory: Clear and Non-Labored Respirations
GI: Soft and Non Distended
Neurology: Other (Sedated, on mechanical ventilation. With sedation breaks to move 4 extremities)
Skin: Warm
General: Respiratory Distress (n)
Assessment
-
67-year-old woman with past medical history significant for atrial fibrillation on anticoagulation, hypertension, diabetes, depression/anxiety who came to the hospital complaining of vomiting and constipation. Became obtunded. Found to have severe
hyponatremia. Subsequently developed seizures. Required intubation for airway protection. Transferred to the critical care unit for further care.
-
Toxic metabolic encephalopathy
Seizures: Likely secondary to electrolyte/metabolic derangements-required intubation and mechanical ventilation for airway protection 05/19/2023
Negative UDS/negative alcohol level
CT head negative
Life-threatening severe hyponatremia
Hypokalemia
? GI dxdof-mtyquf-rzxwdz emesis versus swallowed old blood from tongue bite.
Conditions present prior admission:
Paroxysmal atrial fibrillation-on Eliquis
Hypertension
Type 2 diabetes
Depression/anxiety
Unclear compliance-Per her friend apparently she was treating herself holistically.
Assessment and plan:
Patient is critically ill, intubated on mechanical ventilation. Had profound hyponatremia of unclear etiology.
Case discussed with nephrology.
-
Mechanical ventilation settings reviewed
Respiratory mechanics acceptable
Chest x-ray reviewed without acute abnormalities.
ABG 05/19/2023: 7.40
Wean FiO2 as able
-
Will attempt to wean down sedation and possibly attempt spontaneous breathing trial if patient is appropriate.
If mental status not appropriate we will continue with mechanical ventilation.
Currently on fentanyl and propofol drip-will wean down as tolerated. Target RASS score 0/-1
-
Severe hyponatremia: Unclear etiology
Workup in progress, case discussed with nephrology.
Normal TSH
Normal cortisol
Patient does not take any medications that may be causing SIADH
Continue with careful hqoftlperk-9-6 meq/day.
Every 2 hours BMP
-
No further seizures.
Suspect due to severe hyponatremia
No indication for antiseizure medications
Continue with frequent neurological checks
neurology correspondence reviewed
-
Hypotensive/on Levophed likely due to sedation. Possibly volume depleted.
Continue Levophed, wean off as able.
IV fluids per nephrology.
-
NG tube in place
? Coffee-ground emesis versus swallowed blood from her tongue bite
Anemia possibly dilutional
Will start PPI
Continue to follow H&H
-
IV fluids per nephrology
-
Insulin sliding scale Target blood sugar 140-180 patient was not taking any medications in the outpatient setting.
-
N.p.o.
Head of bed elevation
Sedation breaks per protocol
-
DVT prophylaxis with Lovenox
-
Critical care statement: A total of 33 minutes of critical care time was provided for this patient today. This includes management of unstable vital signs, evaluation of the patient at bedside, reviewing the patient's pertinent medical records
including ventilator settings, arterial blood gases, radiographs, microbiology, laboratory evaluations and discussion with primary team, critical care nursing, and respiratory therapy.
[2023-05-20 12:10] LABS: Glucose - Point of Care 106 mg/dl (70-99)
--- NOTE | 2023-05-20 12:32 | W.PN.NEPH.PH ---
Today's Communication / Plan
-
see plan
Assessment/Plan
-
IMP:
Acute TME
Profound life threatening hyponatremia -sodium 107
Hypokalemia
Normocytic anemia
Paroxysmal atrial fibrillation
Essential hypertension
DM2 with hyperglycemia
Depression/anxiety
PLan:
A/w constipation and vomiting in ER, later became obtunded with SZ, sodium 107
Severe life threatening hyponatremia-SIADH, U osmo high at 536 high ADH stimuli from GI issues?
s/p 3% bolus 100cc just before SZ, and continued through night
sodium upto 116 this am, slightly more than goal
initiated hypotonic fluids d5w at 65cc/hr and goal of sodium tonight will be 113
s/p DDAVP overnight since U osmo decreased to 92
goal of correction 6-8meq/day strictly
high risk of CPM
TSH and cortisol were ok
pressors to keep MAP>65
would need Q2hr sodium today
VDRF to protect airway, neuro follows for SZ
reaplce mg
monitor h/h, had hematemesis in ER prior to SZ
d/w ICU, nursing
CC time spent 35min
-
-
Date of Service: May 20, 2023
CC / HPI / ROS
-
Chief Complaint:
hyponatremia-life threatening
History of Present Illness:
sodium upto 116 this am. increased UOP and low U osmo 92 overnight since improved with DDAVP
off 3% saline since industrial relations representative , remains on pressors for hypotnesion
no fever, non oliguric
Review of Systems:
intubated, sedated
FIO2 40%
Labs
-
Labs:
WBC 10.0 10^3/uL (4.8-10.8) 05/20/23 03:05
RBC 3.31 10^6/uL (4.20-5.40) L 05/20/23 03:05
Hgb 10.3 g/dL (12.0-16.0) L 05/20/23 03:05
Hct 28.1 % (37.0-47.0) L 05/20/23 03:05
Plt Count 196 10^3/uL (130-400) 05/20/23 03:05
eGFR Cancelled 05/20/23 21:14
Albumin 4.3 g/dl (3.5-5.0) 05/19/23 17:03
Physical Exam
-
Vital Signs:
Vital Signs
Temp Pulse Resp BP Pulse Ox
100.2 F 67 14 120/60 99
05/20/23 11:20 05/20/23 12:20 05/20/23 12:20 05/20/23 12:20 05/20/23 12:20
Cardiovascular:: Regular rate and rhythm
Respiratory:: Bilateral: CTA
Lung Excursion:: Normal
Abdomen:: Nontender and Soft
Extremity Edema:: None: Bilateral:
Álvarez Catheter: Yes
--- NOTE | 2023-05-20 12:32 | PTCARENOTE ---
Dr Black in room to see pt. Aware of coffee ground like material in OGT tubing to LIWS. Pt's Fentanyl and Propofol gtts on hold for wake up assessment per Dr Black. Will monitor. Ordered BMP drawn and sent to lab. No changes from previous
assessment findings. Pt's medicare contact specialist and friend 'Janet Cali' called earlier this am for update and then in room at 1150 to see pt. Updated as requested and questions answered. Janet Cali took pt's belongings in the closet, including
yellow colored, purse home with her.
[2023-05-20 12:41] LABS: Blood Urea Nitrogen 7 mg/dl (7-17); Calcium 8.2 mg/dl (8.4-10.2); Carbon Dioxide 17 mmol/L (22-30); Chloride 91 mmol/L (98-107); Estimated Creatinine Clearance 68 ml/min; Glucose 112 mg/dl (70-99); Potassium 4.4 mmol/L (3.5-5.1); Sodium 114 mmol/L (135-145); eGFR > 60.00
[2023-05-20] MEDS: PROTONIX IV 40 MG IV (13:26)
[2023-05-20] MEDS: NSS (PRESERVATIVE FREE) 10 ML IV (13:26)
[2023-05-20] MEDS: SUBLIMAZE 50 MCG IV ×4 (13:44→23:30)
--- NOTE | 2023-05-20 13:50 | PTCARENOTE ---
Pt increasingly restless/agitated, attempting to sit upright and get OOB. Unable to orient pt. Does not follow any commands or respond to emotional support. Dr Black aware and instructed to restart sedation- see MAR and worklist intervention for
dose/time. Within 10minutes of Fentanyl bolus administration and restarting Fentanyl and Propofol gtts, pt resting quietly w/ eyes closed. Repositioned and comfort care provided.
[2023-05-20 14:55] LABS: Blood Urea Nitrogen 6 mg/dl (7-17); Calcium 8.1 mg/dl (8.4-10.2); Carbon Dioxide 20 mmol/L (22-30); Chloride 86 mmol/L (98-107); Estimated Creatinine Clearance 68 ml/min; Glucose 125 mg/dl (70-99); Potassium 3.9 mmol/L (3.5-5.1); Sodium 114 mmol/L (135-145); eGFR > 60.00
[2023-05-20 16:37] LABS: Blood Urea Nitrogen 5 mg/dl (7-17); Calcium 7.7 mg/dl (8.4-10.2); Carbon Dioxide 19 mmol/L (22-30); Chloride 88 mmol/L (98-107); Estimated Creatinine Clearance 68 ml/min; Glucose 141 mg/dl (70-99); Magnesium 2.1 mg/dl (1.6-2.3); Potassium 3.7 mmol/L (3.5-5.1); Sodium 112 mmol/L (135-145); eGFR > 60.00
--- NOTE | 2023-05-20 16:54 | PTCARENOTE ---
Fb=993. Reported to Dr Vargas- IVF of D5W @ 65ml/hr stopped per order. To draw next BMP in 2hrs. Pt resting quietly since resuming Propofol/Fentanyl gtts. No distress. No changes from previous assessment findings.
[2023-05-20] MEDS: SUBLIMAZE 100 IV (18:15)
[2023-05-20] MEDS: LOVENOX 40 MG SC (18:17)
[2023-05-20 18:22] LABS: Glucose - Point of Care 131 mg/dl (70-99)
[2023-05-20 19:26] LABS: Blood Urea Nitrogen 4 mg/dl (7-17); Calcium 8.1 mg/dl (8.4-10.2); Carbon Dioxide 18 mmol/L (22-30); Chloride 88 mmol/L (98-107); Estimated Creatinine Clearance 68 ml/min; Glucose 127 mg/dl (70-99); Potassium 3.9 mmol/L (3.5-5.1); Sodium 113 mmol/L (135-145); eGFR > 60.00
--- NOTE | 2023-05-20 20:00 | PTCARENOTE ---
Received pt intubated and sedated on propofol and fentanyl gtts. #7.5 ETT, 21 at lip, moved to left side. Tolerating A/C 14/400/+5/40%. Lungs coarse and dim at bases. Pupils 3mm, sluggish B/L. Opens eyes slightly to tactile and painful stimuli. No
commands followed. Weak gag, + corneals. Wrist restraints remain for safety. Tachycardic at change of shift due to agitation- sedation increased by dayshift RN and now SR/SB on tele, HR 50s-60s. BP labile- levophed restarted for MAP<65- see
worklist. Trace LE edema, + pulses. OG tube to LIWS- brown output. Flushed. Hypoactive bowel sounds. Álvarez draining clear yellow. R AC #20 with fent, prop and levo infusing. Turning q2.
BMP results from 1851 noted- sent to Dr. Cabral- continue with current plan of care, no new orders. Repeat in 2 hours.
--- NOTE | 2023-05-20 21:55 | W.PN.UPDATE ---
Update Note
Progress Note Update
Procedure Note: Arterial Line�
� Right Wrist Arrow 20 (04/15)�
Diagnosis:��hyponatermia
IV Line Comments: Uneventful Procedure�
Rayshawn's test completed pre-procedure: Yes�
A-Line Comments: Sterile technique as per standard protocol, Ultrasound guided insertion�
Functioning A-line in situ: Yes�
A-line Insertion Start Time:�2134�
A-line in at:��2139
[2023-05-20 22:03] LABS: B.E. 1.3 mmol/L; HCO3 23.4 mmol/L (21-28); Ionized Calcium 1.14 mMOL/L (1.15-1.33); O2 Saturation % 99.7 % (94-98); PCO2 28 mmHg (32-35); PO2 200 mmHg (83-108); Potassium 3.5 mMOL/L (3.5-5.1); pH 7.53 (7.35-7.45)
[2023-05-20 22:08] LABS: Sodium 114 mMOL/L (136-145)
[2023-05-20 22:16] LABS: Blood Urea Nitrogen 4 mg/dl (7-17); Calcium 7.6 mg/dl (8.4-10.2); Carbon Dioxide 19 mmol/L (22-30); Chloride 90 mmol/L (98-107); Estimated Creatinine Clearance 68 ml/min; Glucose 100 mg/dl (70-99); Potassium 3.3 mmol/L (3.5-5.1); Sodium 113 mmol/L (135-145); eGFR > 60.00
[2023-05-20] MEDS: KCL 270 MEQ IV (22:53)
[2023-05-20] MEDS: DIPRIVAN 100 IV (23:00)
[2023-05-20 23:19] LABS: Glucose - Point of Care 104 mg/dl (70-99)
[2023-05-20] MEDS: VERSED 2 MG IV (23:48)
--- NOTE | 2023-05-20 23:50 | PTCARENOTE ---
~2305, repositioned pt and she woke up, sitting up in bed, eyes wide open, tachycardic up to 130s, BP 180s/60s, fighting restraints, blocking ventilation. Over 45 minutes, propofol titrated up to max 50mcg per protocol, multiple fentanyl boluses
given, fentanyl gtt increased to 100mcg. Bite block placed by RT. Still remained agitated. LABEL PRINTING MACHINIST aware. Versed push ordered and given with good effect. Pt. currently calm, HR 80s, BP 130s/50s. Will monitor closely
[2023-05-21] VITALS (25 sets, daily range): BP systolic 75–175; BP diastolic 43–83; BMI 22.4
[2023-05-21 00:09] LABS: Blood Urea Nitrogen 4 mg/dl (7-17); Calcium 8.2 mg/dl (8.4-10.2); Carbon Dioxide 20 mmol/L (22-30); Chloride 88 mmol/L (98-107); Estimated Creatinine Clearance 68 ml/min; Glucose 97 mg/dl (70-99); Potassium 3.4 mmol/L (3.5-5.1); Sodium 115 mmol/L (135-145); eGFR > 60.00
[2023-05-21] MEDS: LEVOPHED 250 IV ×2 (01:47→20:24)
[2023-05-21 02:19] LABS: Blood Urea Nitrogen 4 mg/dl (7-17); Calcium 7.9 mg/dl (8.4-10.2); Carbon Dioxide 20 mmol/L (22-30); Chloride 90 mmol/L (98-107); Estimated Creatinine Clearance 68 ml/min; Glucose 98 mg/dl (70-99); Potassium 3.9 mmol/L (3.5-5.1); Sodium 115 mmol/L (135-145); eGFR > 60.00
[2023-05-21] MEDS: SUBLIMAZE 50 MCG IV (03:52)
[2023-05-21] MEDS: DIPRIVAN 100 IV ×3 (04:15→16:28)
[2023-05-21] MEDS: SUBLIMAZE 100 IV ×2 (04:15→17:11)
--- NOTE | 2023-05-21 04:18 | PTCARENOTE ---
Stiffness of LEs noted while bathing. Difficult to complete passive ROM. TRAIN EXAMINER to bedside and assessed. No other s/s seizure or change of neuro exam. No new orders. Will monitor. Currently on 40mcg prop, 75mcg fentanyl.. calm and synchronous with
vent. Levophed at 3mcg to maintain MAP>65. ETT moved to R side. A line transduced and zeroed. Repeat labs sent.
[2023-05-21 04:36] LABS: Hematocrit 30.2 % (37.0-47.0); Hemoglobin 10.8 g/dL (12.0-16.0); Mean Corp Hgb Conc. 35.8 g/dL (33.0-37.0); Mean Corpuscular Hgb 30.7 pg (27.0-31.0); Mean Corpuscular Volume 85.8 fL (81.0-99.0); Platelet Count 198 10^3/uL (130-400); Red Blood Cell Count 3.52 10^6/uL (4.20-5.40); Red Cell Dist. Width 12.9 % (11.5-14.5); White Blood Cell Count 6.3 10^3/uL (4.8-10.8)
[2023-05-21 04:52] LABS: Blood Urea Nitrogen 4 mg/dl (7-17); Calcium 8.2 mg/dl (8.4-10.2); Carbon Dioxide 20 mmol/L (22-30); Chloride 91 mmol/L (98-107); Estimated Creatinine Clearance 68 ml/min; Glucose 104 mg/dl (70-99); Potassium 4.2 mmol/L (3.5-5.1); Sodium 118 mmol/L (135-145); eGFR > 60.00
[2023-05-21 06:31] LABS: Blood Urea Nitrogen 4 mg/dl (7-17); Calcium 8.2 mg/dl (8.4-10.2); Carbon Dioxide 20 mmol/L (22-30); Chloride 92 mmol/L (98-107); Estimated Creatinine Clearance 68 ml/min; Glucose 107 mg/dl (70-99); Magnesium 1.8 mg/dl (1.6-2.3); Potassium 4.1 mmol/L (3.5-5.1); Sodium 118 mmol/L (135-145); eGFR > 60.00
[2023-05-21] MEDS: NOVOLOG FLEXPEN-LOW RESISTANCE SC ×4 (07:08→22:00)
--- NOTE | 2023-05-21 07:20 | W.PN.INTV ---
Today's Communication / Plan
Recommendations
Continue pressors, wean as able
Follow sodium levels, currently 121
Last received DDAVP over weekend
Transition to ASV
ABG/chest x-ray in a.m.
Minimize sedation as able, would like to assess mental status
Assessment
-
67-year-old woman with past medical history significant for atrial fibrillation on anticoagulation, hypertension, diabetes, depression/anxiety who came to the hospital complaining of vomiting and constipation. Became obtunded. Found to have severe
hyponatremia. Subsequently developed seizures. Required intubation for airway protection. Transferred to the critical care unit for further care.
Toxic metabolic encephalopathy
Seizures: Likely secondary to electrolyte/metabolic derangements-required intubation and mechanical ventilation for airway protection 05/19/2023
Negative UDS/negative alcohol level
CT head negative
Life-threatening severe hyponatremia
Hypokalemia
? GI edojl-fygbqi-tcosfc emesis versus swallowed old blood from tongue bite.
Conditions present prior admission:
Paroxysmal atrial fibrillation-on Eliquis
Hypertension
Type 2 diabetes
Depression/anxiety
Unclear compliance-Per her friend apparently she was treating herself holistically.
Assessment and plan:
Patient is critically ill, intubated on mechanical ventilation.
Remains on low-dose pressors, norepinephrine. Sodium level 118 this morning
During my exam, patient unresponsive, withdraws to painful stimuli.
Per nursing, patient gets agitated requiring sedation
Labile blood pressure noted
Urine output 1240 overnight
Moving forward
Continue with mechanical ventilation
AC 12/400/5/40%
ABG 7.53/28/200
Airway pressures adequate, peak 24, plateau 12
Avoid overventilation, transition to ASV
ABG, chest x-ray in a.m.
Would like to wean sedation to assess neurological status
Currently on propofol/fentanyl
Would like sedation vacation and reassess
Severe hyponatremia: Unclear etiology
Nephrology following
Normal TSH
Normal cortisol
Patient does not take any medications that may be causing SIADH
Continue with careful ezhzzeosoj-3-6 meq/day.
Every 2 hours BMP
Most recent sodium 121
Brisk urine output noted
No further seizures.
Suspect due to severe hyponatremia
No indication for antiseizure medications
Continue with frequent neurological checks
neurology following
Hypotensive/on Levophed likely due to sedation. Possibly volume depleted.
Continue Levophed, wean off as able.
IV fluids per nephrology.
NG tube in place
? Coffee-ground emesis versus swallowed blood from her tongue bite
Anemia possibly dilutional
Continue PPI therapy
Continue to follow H&H
Insulin sliding scale Target blood sugar 140-180 patient was not taking any medications in the outpatient setting.
N.p.o.
Head of bed elevation
Aspiration precautions
DVT prophylaxis with Lovenox
GI prophylaxis: Protonix
-
Critical care statement: A total of 34 minutes of critical care time was provided for this patient today. This includes management of unstable vital signs, evaluation of the patient at bedside, reviewing the patient's pertinent medical records
including ventilator settings, arterial blood gases, radiographs, microbiology, laboratory evaluations and discussion with primary team, critical care nursing, and respiratory therapy.
Subjective Dataa
Subjective Data
Date of Service:
Date of Service: May 21, 2023
Subjective:
Patient remains critically ill. Mechanically ventilated, on low-dose norepinephrine. Also remains on propofol/fentanyl. Required Versed overnight to help with agitation. During my assessment, patient is unresponsive
Objective Data
Data Reviewed
Vital Signs / I&O / Oxygen:
Vital Signs
Temp Pulse Resp BP Pulse Ox
98.6 F 50 12 122/58 100
05/21/23 03:47 05/21/23 06:00 05/21/23 06:00 05/21/23 06:00 05/21/23 06:00
Intake and Output
05/20/23 05/21/23 05/22/23
06:59 06:59 06:59
Intake Total 530.8 / 555.8 1272.3 / 1272.3
Output Total 1850 / 1870 1440 / 1440
Balance -1319.2 / -1314.2 -167.7 / -167.7
SaO2 [A/C] 100
SaO2 100
Physical Exam
General: Comfortable and Other (Arterial line)
HEENT: Normocephalic, Anicteric and Other (Pupils equal and sluggish)
Cardiovascular: S1-S2, Regular Rhythm, Murmur (n), Rub (n) and Peripheral Edema (n)
Respiratory: Wheeze (n), Crackles (n), Rhonchi (n) and Non-Labored Respirations
GI: Soft, Non Distended and Non Tender
Neurology: Lethargic (Withdraws to stimuli, does not follow commands)
Skin: Cyanosis (n), Jaundice (n) and Rash (n)
Labs/Micro/Reports
Lab Data
05/21/23 03:58
Laboratory Results
05/20/23 05/20/23
21:53 21:54
pH 7.53 H Cancelled
pCO2 28 L Cancelled
pO2 200 H Cancelled
HCO3 23.4 Cancelled
O2 Delivery Level Cancelled
[2023-05-21] MEDS: PROTONIX IV 40 MG IV (08:00)
[2023-05-21] MEDS: NSS (PRESERVATIVE FREE) 10 ML IV (08:00)
--- NOTE | 2023-05-21 08:00 | PTCARENOTE ---
PT received intubated and sedated, PT does arouse, when awake, PT is anxious, pulling at restraints, biting ET tube, HR is increased and blood pressure raises, Propofol increased as per protocol, see work list, Oral care provided as per protocol,
SB-NSR, + pulses no edema, # 7.5 ETT 21 @ lip, coarse breath sounds T/O, OG tube to LIS, minimal drainage noted, hypoactive BS, Álvarez care provided,Álavrez draining clear yellow urine, right FA INT and right wrist INT flushed and patent, right radial
Serg flushed and zeroed, updated Janet (ALANNA) by phone
[2023-05-21] MEDS: MIRALAX 17 GRAMS TUBE (08:01)
[2023-05-21 09:18] LABS: Blood Urea Nitrogen 3 mg/dl (7-17); Calcium 8.5 mg/dl (8.4-10.2); Carbon Dioxide 19 mmol/L (22-30); Chloride 94 mmol/L (98-107); Estimated Creatinine Clearance 68 ml/min; Glucose 114 mg/dl (70-99); Potassium 4.1 mmol/L (3.5-5.1); Sodium 121 mmol/L (135-145); eGFR > 60.00
[2023-05-21 10:22] LABS: Blood Urea Nitrogen 3 mg/dl (7-17); Calcium 8.1 mg/dl (8.4-10.2); Carbon Dioxide 19 mmol/L (22-30); Chloride 98 mmol/L (98-107); Estimated Creatinine Clearance 68 ml/min; Glucose 112 mg/dl (70-99); Potassium 3.9 mmol/L (3.5-5.1); Sodium 121 mmol/L (135-145); eGFR > 60.00
[2023-05-21] MEDS: DDAVP 50.5 MCG IV (10:30)
[2023-05-21] MEDS: D5W 1000 IV (10:30)
[2023-05-21 11:46] LABS: Glucose - Point of Care 121 mg/dl (70-99)
--- NOTE | 2023-05-21 13:15 | CM ---
CM following re: discharge planning.
Discussed in Rounds, reviewed pt's chart met with pt and spoke to pt's friend Lilli Cali over the phone.
Pt is a 67 year old female, admitted with primary dx of Toxic metabolic encephalopathy. Seizures, required intubation and mechanical ventilation for airway protection 05/19/2023. Per Rounds meeting, pt remains intubated, continue supportive care.
Per friend Lilli, she is pt's executive, she feels she does not have POA and she will contact pt's trade mark attorney to find out. Per friend, pt lives alone in a 2SH, 2 steps to enter. 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 Pt's friend Lilli stated she has been friend with the pt for almost 50 years and per her knowledge pt does not have any immediate family or at least she is not aware of anyone involved in pt's life.
PCP: [facility]. [facility]
Pharmacy: [facility]
D/C plan: uncertain at this time and will depend on pt's progress.
CM will follow with discharge plan updates as hospitalization progresses
[2023-05-21 13:32] LABS: Blood Urea Nitrogen 4 mg/dl (7-17); Calcium 8.2 mg/dl (8.4-10.2); Carbon Dioxide 19 mmol/L (22-30); Chloride 95 mmol/L (98-107); Estimated Creatinine Clearance 68 ml/min; Glucose 141 mg/dl (70-99); Sodium 121 mmol/L (135-145); eGFR > 60.00
[2023-05-21 13:36] LABS: Potassium 3.8 mmol/L (3.5-5.1)
--- NOTE | 2023-05-21 13:59 | PTCARENOTE ---
PT has periods where she is awake and agitated, pulling at restraints, sitting upright in bed, not following simple commands, then PT has prolonged periods of being sedated, HR and BP fluctuate during these episodes, see work list for titrations of
levophed to maintain MAP>65, no other changes at this time
--- NOTE | 2023-05-21 14:38 | W.PN.HOSP.TC ---
Today's Communication/Plan
-
Wean sedation
attempt to wean pressors while weaning sedation if feasible
Maintain ASV today
Monitor BMP closely, avoid overcorrection of sodium
Assessment / Plan
Assessment / Plan
Gen-intubated, sedated
HEENT-NC, AT, anicteric, clear oral mm
Neck-supple
CV-reg, no M, +S1/S2
Lungs-clear B/L
Abd-soft, NT, ND
Ext-no edema
Musculoskeletal-no cyanosis, clubbing
Skin-warm and dry
#Acute TME
obtunded in the emergency room.
-hyponatremia +/- Seizures cause of AMS
-Currently sedated, intubated.
-wean sedation as tolerated
-Neurology radha consulted - no interventions at this time
#Hyponatremia
-Nephro on board
- s/p 3% saline
-Most likely SIADH
-TSH, cortisol WNL
-improving, monitor bmp closely; avoid overcorrection
#Acute hypoxic respiratory failure
-intubated for airway protection
-Switch to ASV, wean as tolerated
-40% FiO2
-treatment plan as above
#Hypotension/shock -not present on admission.
Subsequently developed after intubation and sedation.
-wean sedatives to assess BP response
-wean pressors as tolerated
-no evidence of sepsis at this time
#Maintain MAP goal greater than 65
Hypokalemia -resolved.
Hypomagnesemia - monitor and replete
Normocytic anemia -appears chronic. Unclear etiology. Monitor for now.
Paroxysmal atrial fibrillation - Eliquis.
Essential hypertension -hold antihyhpertensives with hypotension
DM2 with hyperglycemia -need to clarify home regimen. Check hemoglobin A1c. - 5.7
Depression/anxiety
Full code
Total time spent on today's encounter was 50 minutes which included time spent in counseling the patient/family regarding diagnosis and treatment plan as listed above, goals of care, and symptom management. Case was discussed with nursing staff,
specialists, and care coordinators/case management. All labs and imaging personally reviewed by me. Remainder the time spent in detailed review of previous records, lab data, imaging, and other medical provider documentation.
Anticipated Discharge: > 48 hours
Subjective/Interval History
-
Date of Service: May 21, 2023
intubated; switch to ASV;
Objective Data
-
Labs:
Laboratory Results
05/21/23 05/21/23 05/21/23
03:58 05:49 08:38
WBC 6.3
Hgb 10.8 L
Hct 30.2 L
Plt Count 198
Sodium 118 L* 118 L* 121 L
Potassium 4.2 4.1 4.1
Chloride 91 L 92 L 94 L
Carbon Dioxide 20 L 20 L 19 L
BUN 4 L 4 L 3 L
Creatinine 0.4 L 0.3 L 0.3 L
Glucose 104 H 107 H 114 H
Calcium 8.2 L 8.2 L 8.5
05/21/23 05/21/23 05/21/23
09:58 13:06 14:00
WBC
Hgb
Hct
Plt Count
Sodium 121 L 121 L Pending
Potassium 3.9 3.8 Pending
Chloride 98 95 L Pending
Carbon Dioxide 19 L 19 L Pending
BUN 3 L 4 L Pending
Creatinine 0.3 L 0.3 L Pending
Glucose 112 H 141 H Pending
Calcium 8.1 L 8.2 L Pending
05/21/23
16:00
WBC
Hgb
Hct
Plt Count
Sodium Pending
Potassium Pending
Chloride Pending
Carbon Dioxide Pending
BUN Pending
Creatinine Pending
Glucose Pending
Calcium Pending
Vital Signs:
Vital Signs
Temp Pulse Resp BP Pulse Ox
97.6 F 51 17 102/55 100
05/21/23 11:01 05/21/23 13:30 05/21/23 13:30 05/21/23 13:00 05/21/23 13:30
I&O
05/20/23 05/21/23 05/22/23
06:59 06:59 06:59
Intake Total 530.8 / 555.8 1272.3 / 1308.0 631.0 / 631.0
Output Total 1850 / 1870 1440 / 1790 1300 / 1300
Balance -1319.2 / -1314.2 -167.7 / -482.0 -669.0 / -669.0
Review of Systems
-
Unable to obtain full review of systems at this time due to: Acuity and Patient Intubation
Physical Exam
-
General: Well Developed, Well Nourished and No Apparent Distress
HEENT: Normocephalic, Atraumatic and Other (clean based oral ulcer on side of tongue)
Respiratory: Clear to Auscultation; Negative Wheezes or Rhonchi
Cardiac: Regular Rhythm and S1/S2; Negative Murmur
GI: Soft, Nontender, Nondistended and Normal Bowel Sounds
Musculoskeletal: No Clubbing, No Cyanosis and No Edema
Skin: Warm
Neuro: Awake
Psych: Calm
Data Reviewed
-
Diagnostic Radiology: Image personally visualized and interpreted and Report Reviewed by me
CT Scan: Image personally visualized and interpreted and Report Reviewed by me
[2023-05-21 15:07] LABS: Blood Urea Nitrogen 4 mg/dl (7-17); Calcium 8.1 mg/dl (8.4-10.2); Carbon Dioxide 20 mmol/L (22-30); Chloride 94 mmol/L (98-107); Estimated Creatinine Clearance 68 ml/min; Glucose 154 mg/dl (70-99); Sodium 120 mmol/L (135-145); eGFR > 60.00
--- NOTE | 2023-05-21 15:49 | PTCARENOTE ---
Propofol titrated to 40 mcg, PT awoke, pulling on restraints constantly biting ET tube,alarming the vent, BP increased to 190's/100's, PT does not follow commands, Propofol increased back to 50 mcg,
--- NOTE | 2023-05-21 15:53 | W.PN.NEPH.PH ---
Today's Communication / Plan
-
- D5 + DDAVP today for slight overcorrection
- plan to stop D5 at 9PM
Assessment/Plan
-
IMP:
Acute TME
Profound life threatening hyponatremia -sodium 107
Hypokalemia
Normocytic anemia
Paroxysmal atrial fibrillation
Essential hypertension
DM2 with hyperglycemia
Depression/anxiety
PLan:
A/w constipation and vomiting in ER, later became obtunded with SZ, sodium 107
Severe life threatening hyponatremia-SIADH, U osmo high at 536 high ADH stimuli from GI issues?
s/p 3% bolus 100cc just before SZ, and continued through night
Na to 113 at 9PM yesterday after slight overcorrection. goal for 119 at 9PM today (slight overcorrection this AM to 121, given DDAVP + D5)
- i would like to stop the D5 this evening and allow for autocorrection
- goal Na to be 125-127 by tomorrow evening
goal of correction 6-8meq/day strictly
high risk of CPM
TSH and cortisol were ok
pressors to keep MAP>65
plan for q4 Na checks at this time
VDRF to protect airway, neuro follows for SZ
reaplce mg
monitor h/h, had hematemesis in ER prior to SZ
d/w ICU, nursing
CC time spent 35min
-
-
Date of Service: May 21, 2023
CC / HPI / ROS
-
Chief Complaint:
hyponatremia-life threatening
History of Present Illness:
Na at 113 last night, up to 118 then 121 this AM
given D5 + DDAVP to avoid overcorrection
remains on pressors for hypotnesion
no fever, non oliguric
Review of Systems:
intubated, sedated
FIO2 40%
Labs
-
Labs:
WBC 6.3 10^3/uL (4.8-10.8) 05/21/23 03:58
RBC 3.52 10^6/uL (4.20-5.40) L 05/21/23 03:58
Hgb 10.8 g/dL (12.0-16.0) L 05/21/23 03:58
Hct 30.2 % (37.0-47.0) L 05/21/23 03:58
Plt Count 198 10^3/uL (130-400) 05/21/23 03:58
eGFR > 60.00 05/21/23 14:42
Albumin 4.3 g/dl (3.5-5.0) 05/19/23 17:03
Physical Exam
-
Vital Signs:
Vital Signs
Temp Pulse Resp BP Pulse Ox
97.7 F 51 17 102/55 100
05/21/23 15:01 05/21/23 13:30 05/21/23 13:30 05/21/23 13:00 05/21/23 14:42
Cardiovascular:: Regular rate and rhythm
Respiratory:: Bilateral: Coarse
Lung Excursion:: Normal
Abdomen:: Nontender and Soft
Bowel Sounds:: Normal
Extremity Edema:: None: Bilateral:
Álvarez Catheter: Yes
[2023-05-21 16:23] LABS: Blood Urea Nitrogen 4 mg/dl (7-17); Calcium 8.1 mg/dl (8.4-10.2); Carbon Dioxide 18 mmol/L (22-30); Chloride 97 mmol/L (98-107); Estimated Creatinine Clearance 68 ml/min; Glucose 152 mg/dl (70-99); Potassium 4.1 mmol/L (3.5-5.1); Sodium 119 mmol/L (135-145); eGFR > 60.00
[2023-05-21 17:22] LABS: Glucose - Point of Care 133 mg/dl (70-99)
[2023-05-21] MEDS: ELIQUIS 5 MG TUBE (20:23)
[2023-05-21 20:42] LABS: Blood Urea Nitrogen 4 mg/dl (7-17); Calcium 8.3 mg/dl (8.4-10.2); Carbon Dioxide 22 mmol/L (22-30); Chloride 92 mmol/L (98-107); Estimated Creatinine Clearance 68 ml/min; Glucose 132 mg/dl (70-99); Potassium 4.2 mmol/L (3.5-5.1); Sodium 118 mmol/L (135-145); eGFR > 60.00
[2023-05-22] VITALS (18 sets, daily range): BP systolic 79–189; BP diastolic 43–83; BMI 21.8
[2023-05-22 04:25] LABS: B.E. -0.8 mmol/L; HCO3 23.4 mmol/L (21-28); PCO2 36 mmHg (32-35); PO2 186 mmHg (83-108); pH 7.42 (7.35-7.45)
[2023-05-22 05:31] LABS: Hemoglobin 10.7 g/dL (12.0-16.0); Mean Corp Hgb Conc. 35.7 g/dL (33.0-37.0); Mean Corpuscular Hgb 30.9 pg (27.0-31.0); Mean Corpuscular Volume 86.7 fL (81.0-99.0); Mean Platelet Volume 9.3 fL (7.4-10.4); Platelet Count 204 10^3/uL (130-400); Red Blood Cell Count 3.46 10^6/uL (4.20-5.40); Red Cell Dist. Width 13.2 % (11.5-14.5); White Blood Cell Count 5.9 10^3/uL (4.8-10.8)
[2023-05-22] MEDS: SUBLIMAZE 100 IV ×2 (05:58→21:19)
[2023-05-22 05:59] LABS: Blood Urea Nitrogen 4 mg/dl (7-17); Calcium 8.3 mg/dl (8.4-10.2); Carbon Dioxide 21 mmol/L (22-30); Chloride 92 mmol/L (98-107); Estimated Creatinine Clearance 68 ml/min; Glucose 94 mg/dl (70-99); Potassium 3.9 mmol/L (3.5-5.1); Sodium 120 mmol/L (135-145); Triglycerides 103 mg/dl (10-149); eGFR > 60.00
[2023-05-22] MEDS: NOVOLOG FLEXPEN-LOW RESISTANCE SC ×3 (06:39→19:01)
--- NOTE | 2023-05-22 08:02 | W.PN.INTV ---
Today's Communication / Plan
Recommendations
Eliquis continues
Check EKG, rapid atrial fibrillation noted during sedation wean
Patient on diltiazem as outpatient but blood pressure has been labile
Start Precedex, titrate as able
Hopefully can wean off propofol
Continue fentanyl
D5/DDAVP at discretion of nephrology, sodium level 120
Neurology following
Assessment
-
67-year-old woman with past medical history significant for atrial fibrillation on anticoagulation, hypertension, diabetes, depression/anxiety who came to the hospital complaining of vomiting and constipation. Became obtunded. Found to have severe
hyponatremia. Subsequently developed seizures. Required intubation for airway protection. Transferred to the critical care unit for further care.
Toxic metabolic encephalopathy
Seizures: Likely secondary to electrolyte/metabolic derangements-required intubation and mechanical ventilation for airway protection 05/19/2023
Negative UDS/negative alcohol level
CT head negative
Life-threatening severe hyponatremia
Hypokalemia
? GI iprgb-mpjecc-uwsxan emesis versus swallowed old blood from tongue bite.
Conditions present prior admission:
Paroxysmal atrial fibrillation-on Eliquis
Hypertension
Type 2 diabetes
Depression/anxiety
Unclear compliance-Per her friend apparently she was treating herself holistically.
Assessment and plan:
Patient is critically ill, intubated on mechanical ventilation.
Remains on low-dose pressors, norepinephrine. Sodium level 120
Urine output remains brisk
Observed patient when propofol was weaned despite Precedex, becomes agitated, pulling for ET tube, tachycardic/hypertensive
Moving forward
Continue with mechanical ventilation
Maintain ASV 100% /40%/5
Airway pressures adequate, peak 13, plateau 11
ABG 7.42/36/26
Chest x-ray with appropriate ET tube, mild right lower lobe infiltrate
Will assess for weaning depending on mental status
Would like to wean sedation to assess neurological status
Started Precedex this morning. Patient becomes extremely agitated when weaning propofol
Currently on propofol/fentanyl/Precedex
When agitated, moves all extremities, reaching for ET tube, hypertensive/tachycardic into the 140s. Unfortunately during his episodes, patient is not following commands
Continue with current sedation with efforts to increase Precedex and wean off propofol as able. Continue fentanyl
Severe hyponatremia: Unclear etiology
Nephrology following
Normal TSH
Normal cortisol
Patient does not take any medications that may be causing SIADH
Continue with careful dranrwfgty-6-8 meq/day.
Every 2 hours BMP
Most recent sodium 120
Brisk urine output noted
D5, DDAVP at discretion of nephrology
Goal sodium around 126 later p.m. today
No further seizures.
Suspect due to severe hyponatremia
No indication for antiseizure medications
Continue with frequent neurological checks
neurology following
Unfortunately when sedation is weaned, patient is not following commands despite agitation
Hypotensive/on Levophed likely due to sedation. Possibly volume depleted.
Continue Levophed, wean off as able.
IV fluids per nephrology.
NG tube in place
? Coffee-ground emesis versus swallowed blood from her tongue bite
Anemia possibly dilutional
Continue PPI therapy
Continue to follow H&H
Insulin sliding scale Target blood sugar 140-180 patient was not taking any medications in the outpatient setting.
N.p.o.
Head of bed elevation
Aspiration precautions
DVT prophylaxis: Patient on Eliquis
GI prophylaxis: Protonix
-
Critical care statement: A total of 40 minutes of critical care time was provided for this patient today. This includes management of unstable vital signs, evaluation of the patient at bedside, reviewing the patient's pertinent medical records
including ventilator settings, arterial blood gases, radiographs, microbiology, laboratory evaluations and discussion with primary team, critical care nursing, and respiratory therapy.
Subjective Dataa
Subjective Data
Date of Service:
Date of Service: May 22, 2023
Subjective:
Patient remains critically ill. Has occasional episodes of agitation, requiring increase of sedation. Sodium level 120, blood sugars stable. Urine output adequate, 7800 cc / 24 hours. Remains on ASV overnight. Norepinephrine remains in place,
being weaned. Labile blood pressure noted
Objective Data
Data Reviewed
Vital Signs / I&O / Oxygen:
Vital Signs
Temp Pulse Resp BP Pulse Ox
97.2 F 67 11 157/76 100
05/22/23 01:00 05/22/23 06:00 05/22/23 06:00 05/22/23 06:00 05/22/23 06:00
Intake and Output
05/21/23 05/22/23 05/23/23
06:59 06:59 06:59
Intake Total 1272.3 / 1308.0 1592.7 / 1592.7
Output Total 1440 / 1790 1795 / 1795
Balance -167.7 / -482.0 -202.3 / -202.3
SaO2 [ASV] 100
SaO2 [A/C] 100
SaO2 100
Physical Exam
General: Comfortable and Other (Arterial line)
HEENT: Normocephalic, Anicteric and Other (Pupils equal and sluggish)
Cardiovascular: S1-S2, Regular Rhythm, Murmur (n), Rub (n) and Peripheral Edema (n)
Respiratory: Wheeze (n), Crackles (n), Rhonchi (n) and Non-Labored Respirations
GI: Soft, Non Distended and Non Tender
Neurology: Lethargic (Becomes tachycardic, hypertensive 1 awake, pulling for ET tube during sedation wean. Does not follow commands)
Skin: Cyanosis (n), Jaundice (n) and Rash (n)
Labs/Micro/Reports
Lab Data
05/22/23 04:13
05/22/23 04:13
Laboratory Results
05/22/23
04:13
pH 7.42
pCO2 36 H
pO2 186 H
HCO3 23.4
O2 Delivery Level
[2023-05-22] MEDS: ELIQUIS 5 MG TUBE ×2 (08:18→20:41)
[2023-05-22] MEDS: PROTONIX IV 40 MG IV (08:18)
[2023-05-22] MEDS: DIPRIVAN 100 IV ×2 (08:18→15:34)
[2023-05-22] MEDS: NSS (PRESERVATIVE FREE) 10 ML IV (08:18)
[2023-05-22] MEDS: MIRALAX 17 GRAMS TUBE (08:23)
[2023-05-22] MEDS: PRECEDEX 100 IV ×2 (09:22→15:35)
--- NOTE | 2023-05-22 09:41 | PTCARENOTE ---
Update this am in rounds with critical care team. Discuss plan of cares. Transition off diprivan to prescedex, with plan to extubate based on wean and abg. Continue supportive cares and emotional support to alleviate anxiety and stress on patient.
Continue to follow along with pharmacy and respiratory cares team.
--- NOTE | 2023-05-22 10:44 | PTCARENOTE ---
Continue to collaborate with transplant coordinator and pharmacy to move toward ventilator wean. Weanig diprivan as able with assist from critical care team. Ski Maker Wood called to bedside. Patient tachy and hypertensive non focal. Pharmacy at bedside fro
episode, quickly taper levophed off, Will titrate and follow aassessment trends with transplant coordinator.
--- NOTE | 2023-05-22 11:45 | PTCARENOTE ---
Sizer Hand at bedside, updates with pharmacy. Holding wean at this assessment secondary to vital sign trends. ECG obtained noted at slower rate. Continue to follow along with critical care team. During episode patient awake, no commands, non focal,
appears to be looking around room but not redirectable. Supportive measures ongoing. Critical care nursing at bedside. SPD protocols.
[2023-05-22 12:07] LABS: Glucose - Point of Care 100 mg/dl (70-99)
--- NOTE | 2023-05-22 12:28 | CM ---
CM following re: discharge planning.
Discussed in Rounds, reviewed pt's chart met with pt. Per Rounds meeting, pt remains intubated, plan to extubate based on wean and abg, Continue supportive care.
Per friend Lilli, pt lives alone in a 2SH, 2 steps to enter. 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
D/C plan: uncertain at this time and will depend on pt's progress.
CM will follow with discharge plan updates as hospitalization progresses
--- NOTE | 2023-05-22 12:56 | PTCARENOTE ---
Updated asssessment trends with Endodontics Dentist. Noted increasing urine output. Review ongoing lab trends, stat bmp obtained. Holding weaning at this assessment. rip trends to be maintained await follow up orders and plan of cares. Will follow up with
nephrology and continue ongoing critical care trends.
[2023-05-22 13:06] LABS: Blood Urea Nitrogen < 2 mg/dl (7-17); Calcium 8.5 mg/dl (8.4-10.2); Carbon Dioxide 25 mmol/L (22-30); Chloride 100 mmol/L (98-107); Estimated Creatinine Clearance 68 ml/min; Glucose 114 mg/dl (70-99); Potassium 3.6 mmol/L (3.5-5.1); Sodium 128 mmol/L (135-145); eGFR > 60.00
[2023-05-22] MEDS: DDAVP 50.5 MCG IV (13:38)
--- NOTE | 2023-05-22 14:08 | PTCARENOTE ---
Updates with rope cleaner and nephrology. Follow up medications via [facility] and with pharmacy. Continue with trends in assessment. Labs as ordered will continue to monitor.
[2023-05-22] MEDS: KCL 270 MEQ IV (14:11)
--- NOTE | 2023-05-22 14:16 | W.PN.HOSP.TC ---
Today's Communication/Plan
-
Attempt to wean off propofol, initiate/transition to dexmedetomidine
Sodium follow-up as per nephrology�monitor BMP closely
Hopeful to liberate off ventilator within 24 hours
Assessment / Plan
Assessment / Plan
Gen-intubated, sedated
HEENT-NC, AT, anicteric, clear oral mm
Neck-supple
CV-reg, no M, +S1/S2
Lungs-clear B/L
Abd-soft, NT, ND
Ext-no edema
Musculoskeletal-no cyanosis, clubbing
Skin-warm and dry
#Acute TME
obtunded in the emergency room.
-hyponatremia +/- Seizures cause of AMS
-Currently sedated, intubated.
-wean sedation as tolerated; goal wean off propofol, switch to dexmedetomidine
-Neurology radha consulted - no interventions at this time
#Hyponatremia
� Patient was on multiple homeopathic medications and noncompliant medications�possible contributing factor for hyponatremia
-Nephro on board
- s/p 3% saline, and DDAVP yesterday
-Most likely SIADH
-TSH, cortisol WNL
-improving, monitor bmp closely; avoid overcorrection
#Acute hypoxic respiratory failure
-intubated for airway protection
-Switch to ASV, wean as tolerated once weaning sedation
-40% FiO2
-treatment plan as above
-PPI
#Hypotension/shock -not present on admission.
Subsequently developed after intubation and sedation.
-wean sedatives to assess BP response
-wean pressors as tolerated
-no evidence of sepsis at this time
-Maintain MAP goal greater than 65
Hypokalemia -monitor and replet
Hypomagnesemia - monitor and replete
Normocytic anemia -appears chronic. Unclear etiology. Monitor for now.
Paroxysmal atrial fibrillation - Eliquis.
Essential hypertension -hold antihyhpertensives with hypotension
DM2 with hyperglycemia -need to clarify home regimen. Check hemoglobin A1c. - 5.7
Depression/anxiety
Full code
Total time spent on today's encounter was 52 minutes which included time spent in counseling the patient/family regarding diagnosis and treatment plan as listed above, goals of care, and symptom management. Case was discussed with nursing staff,
specialists, and care coordinators/case management. All labs and imaging personally reviewed by me. Remainder the time spent in detailed review of previous records, lab data, imaging, and other medical provider documentation.
Anticipated Discharge: > 48 hours
Subjective/Interval History
-
Date of Service: May 22, 2023
Intubated, attempt to wean off propofol, switch to Precedex
Objective Data
-
Labs:
Laboratory Results
05/22/23 05/22/23 05/22/23
04:13 12:43 18:00
WBC 5.9
Hgb 10.7 L
Hct 30.0 L
Plt Count 204
HCO3 23.4
Sodium 120 L 128 L D Pending
Potassium 3.9 3.6 Pending
Chloride 92 L 100 Pending
Carbon Dioxide 21 L 25 Pending
BUN 4 L < 2 L Pending
Creatinine 0.3 L 0.3 L Pending
Glucose 94 114 H Pending
Calcium 8.3 L 8.5 Pending
05/22/23
20:00
WBC
Hgb
Hct
Plt Count
HCO3
Sodium Cancelled
Potassium Cancelled
Chloride Cancelled
Carbon Dioxide Cancelled
BUN Cancelled
Creatinine Cancelled
Glucose Cancelled
Calcium Cancelled
Vital Signs:
Vital Signs
Temp Pulse Resp BP Pulse Ox
98.8 F 89 18 104/53 98
05/22/23 10:40 05/22/23 14:00 05/22/23 14:00 05/22/23 12:00 05/22/23 14:06
I&O
05/21/23 05/22/23 05/23/23
06:59 06:59 06:59
Intake Total 1272.3 / 1308.0 1592.7 / 1628.1 375.3 / 375.3
Output Total 1440 / 1790 1795 / 1945 3100 / 3100
Balance -167.7 / -482.0 -202.3 / -316.9 -2724.7 / -2724.7
Review of Systems
-
Unable to obtain full review of systems at this time due to: Acuity and Patient Intubation
Physical Exam
-
General: Well Developed, Well Nourished and No Apparent Distress
HEENT: Normocephalic, Atraumatic and Other (clean based oral ulcer on side of tongue)
Respiratory: Clear to Auscultation; Negative Wheezes or Rhonchi
Cardiac: Regular Rhythm and S1/S2; Negative Murmur
GI: Soft, Nontender, Nondistended and Normal Bowel Sounds
Musculoskeletal: No Clubbing, No Cyanosis and No Edema
Skin: Warm
Neuro: Awake
Psych: Calm
Data Reviewed
-
Diagnostic Radiology: Image personally visualized and interpreted and Report Reviewed by me
CT Scan: Image personally visualized and interpreted and Report Reviewed by me
--- NOTE | 2023-05-22 14:39 | W.PN.NEPH.PH ---
Today's Communication / Plan
-
- DDAVP + D5
Assessment/Plan
-
IMP:
Acute TME
Profound life threatening hyponatremia -sodium 107
Hypokalemia
Normocytic anemia
Paroxysmal atrial fibrillation
Essential hypertension
DM2 with hyperglycemia
Depression/anxiety
PLan:
A/w constipation and vomiting in ER, later became obtunded with SZ, sodium 107
Severe life threatening hyponatremia-SIADH, U osmo high at 536 high ADH stimuli from GI issues?
s/p 3% bolus 100cc just before SZ, and continued through night
Na to 120 this AM but then rapidly corrected to 128
- given another dose of DDAVP
- restart D5W to lower Na again
- goal Na at 9PM around 127. if at or below goal, can stop D5W
goal of correction 6-8meq/day strictly. once >130, risk of CPM decreases substantially
high risk of CPM
TSH and cortisol were ok
pressors to keep MAP>65
plan for q6 Na checks at this time
VDRF to protect airway, neuro follows for SZ
reaplce mg
monitor h/h, had hematemesis in ER prior to SZ
d/w ICU, nursing
CC time spent 35min
-
-
Date of Service: May 22, 2023
CC / HPI / ROS
-
Chief Complaint:
hyponatremia-life threatening
History of Present Illness:
Na down to 118 last night, now up to 128.
given D5 + DDAVP to avoid overcorrection
remains on pressors for hypotension
no fever, non oliguric
Review of Systems:
intubated, sedated
FIO2 40%
Labs
-
Labs:
WBC 5.9 10^3/uL (4.8-10.8) 05/22/23 04:13
RBC 3.46 10^6/uL (4.20-5.40) L 05/22/23 04:13
Hgb 10.7 g/dL (12.0-16.0) L 05/22/23 04:13
Hct 30.0 % (37.0-47.0) L 05/22/23 04:13
Plt Count 204 10^3/uL (130-400) 05/22/23 04:13
Sodium Cancelled 05/22/23 20:00
Potassium Cancelled 05/22/23 20:00
Chloride Cancelled 05/22/23 20:00
Carbon Dioxide Cancelled 05/22/23 20:00
BUN Cancelled 05/22/23 20:00
Creatinine Cancelled 05/22/23 20:00
eGFR Cancelled 05/22/23 20:00
Glucose Cancelled 05/22/23 20:00
Calcium Cancelled 05/22/23 20:00
Albumin 4.3 g/dl (3.5-5.0) 05/19/23 17:03
Physical Exam
-
Vital Signs:
Vital Signs
Temp Pulse Resp BP Pulse Ox
98.8 F 89 18 104/53 98
05/22/23 10:40 05/22/23 14:00 05/22/23 14:00 05/22/23 12:00 05/22/23 14:06
Cardiovascular:: Regular rate and rhythm
Respiratory:: Bilateral: Coarse
Lung Excursion:: Normal
Abdomen:: Distended, Nontender and Soft
Bowel Sounds:: Normal
Extremity Edema:: None: Bilateral:
Álvarez Catheter: Yes
[2023-05-22] MEDS: D5W 1000 IV (15:08)
[2023-05-22] MEDS: LEVOPHED 250 IV (15:34)
--- NOTE | 2023-05-22 15:57 | PTCARENOTE ---
Vital signs still unstable. Heart rate and bp vary frequently. IVF added by renal and infusing, KCL replacement as ordered. Will continue follow up bedside nursing. Updates with webfed offset press operator and hospitalist teams. Ongoing assessment follow up.
--- NOTE | 2023-05-22 17:42 | PTCARENOTE ---
Patient spokesperson Sandra Castellano Karely called in for update. She was saying patient was [place] [facility] [place]. Said that patient was very active doing many cleanses and spends thousands of dollars a month
for holistic treatments there. Reinforce plan of cares, continue with emotional support, and teaching. Spokesperson not coming in tonight because she believes there is not much she can do to help. Supportive cares ongoing.
[2023-05-22 18:38] LABS: Blood Urea Nitrogen 2 mg/dl (7-17); Calcium 8.2 mg/dl (8.4-10.2); Carbon Dioxide 24 mmol/L (22-30); Chloride 99 mmol/L (98-107); Estimated Creatinine Clearance 68 ml/min; Glucose 183 mg/dl (70-99); Potassium 4.6 mmol/L (3.5-5.1); Sodium 128 mmol/L (135-145); eGFR > 60.00
--- NOTE | 2023-05-22 20:09 | PTCARENOTE ---
Rec'd pt intubated/sedated on vent. PERRLA 2, cough/gag/corneal reflexes present. Propofol/Precedex maintained, titrating to clinical endpoints. Unable to obtain temp via other means, rectal probe inserted with temp 94.0, ari hugger applied as
ordered. SB on monitor, possible ST elevation seen. METER CHANGES RECORDS CLERK Adry made aware and at bedside for eval. EKG done, Troponin sent, along with BMP and Mg level. Pulses weak but palpable. BP extremely labile. 80s/40s up to 180s/70s without stimulation, pt
appearing calm throughout. Levo ordered as needed. IV lines patent. D5W at 60ml/hr as ordered by Dr Garcia. #7.5 ett 21 @center. ASV settings as ordered. Lungs diminished, scant amount thin carmen secretions. Sat 98%. OGT to LiWS draining green/brown
minimal output, placement confirmed via auscultation. Álvarez to gravity clear yellow urine. Will monitor outputs hourly. DDAVP on previous shift. Will follow up with labs and report back to provider.
[2023-05-22 20:25] LABS: Blood Urea Nitrogen 2 mg/dl (7-17); Calcium 8.6 mg/dl (8.4-10.2); Carbon Dioxide 23 mmol/L (22-30); Chloride 99 mmol/L (98-107); Estimated Creatinine Clearance 68 ml/min; Glucose 181 mg/dl (70-99); Magnesium 1.6 mg/dl (1.6-2.3); Potassium 4.2 mmol/L (3.5-5.1); Sodium 125 mmol/L (135-145); eGFR > 60.00
[2023-05-22 20:29] LABS: Troponin I < 0.012 ng/ml
[2023-05-22] MEDS: MAGNESIUM SULFATE 100 IV (21:07)
[2023-05-22 21:09] LABS: Hematocrit 31.7 % (37.0-47.0); Hemoglobin 11.8 g/dL (12.0-16.0); Mean Corp Hgb Conc. 37.2 g/dL (33.0-37.0); Mean Corpuscular Hgb 31.7 pg (27.0-31.0); Mean Corpuscular Volume 85.2 fL (81.0-99.0); Mean Platelet Volume 9.3 fL (7.4-10.4); Platelet Count 219 10^3/uL (130-400); Red Blood Cell Count 3.72 10^6/uL (4.20-5.40); Red Cell Dist. Width 13.3 % (11.5-14.5); White Blood Cell Count 6.4 10^3/uL (4.8-10.8)
[2023-05-22 21:22] LABS: Lactic Acid 0.6 mmol/L (0.7-2.0)
--- NOTE | 2023-05-22 21:30 | W.PN.UPDATE ---
Update Note
Progress Note Update
05/22/23
2100- Patient bradycardic HR 50s 1st degree AV block, hypothermic, hypo then hypertensive very labile blood pressure titrating Levophed gtt. Kelsie hugger placed for hypothermia to rewarm. Sedation decreased, propofol gtt, due to heart rate and
hypothermia. Patient less responsive will uplift sedation. Case discussed with Dr. Velazquez. After period of sedation being lightened patient became agitated and prn fentanyl given. Patient shoemaker cultured r/o sepsis: blood culture, UA, sputum,
cbc/bmp obtained as well as chest xray. Na is now [address] Garcia, porcelain turner updated, no further correction/registration at this time.
Updated point of contact for patient, friend Janet, and answered all questions. She stated she would be in tomorrow to visit.
[2023-05-22] MEDS: SUBLIMAZE 50 MCG IV (21:57)
[2023-05-22 22:13] LABS: Urine Albumin Negative (Neg - Trace); Urine Bilirubin Negative (Negative); Urine Character Slightly Cloudy (Clear); Urine Color Yellow; Urine Glucose 3+ (Negative); Urine Ketone 3+ (Negative); Urine Leukocyte 2+ (Negative); Urine Nitrite Positive (Negative); Urine Occult Blood 3+ (Negative); Urine Urobilinogen Negative (Neg - 1+)
[2023-05-22 22:23] LABS: Urine Calcium Oxalate Crystals Present; Urine Squamous Cell 0-2 /LPF (Few)
[2023-05-22 22:25] LABS: Urine Bacteria Many (Negative); Urine White Cell 30-40 /HPF (0-5)
--- NOTE | 2023-05-22 22:30 | VATNOTE ---
Results of x-ray reviewed, tip placement at the cavoatrial junction. PCN notified via telephone that PICC is OK to use and advised of need to remove all IVs distal to the PICC line.
[2023-05-22 23:22] LABS: Glucose - Point of Care 187 mg/dl (70-99)
[2023-05-23] VITALS (44 sets, daily range): BP systolic 59–195; BP diastolic 36–95; BMI 21.2
[2023-05-23] MEDS: NOVOLOG FLEXPEN-LOW RESISTANCE 3 UNITS SC (00:11)
--- NOTE | 2023-05-23 00:19 | PTCARENOTE ---
Pt shoemaker cultured. Temp 96.9 rectal with ari hugger still on. VAT team placed PICC line, confirmed with XRAY, all IV lines distal to PICC line discontinued. Titrating drips to clinical endpoints. Upon placement of PICC, pt sat up, reached for ETT,
LORD 5/5, not verbally redirectable. Fentanyl bolus given for discomfort, along with gtts infusing. Otherwise, assessment remains unchanged. Will monitor.
--- NOTE | 2023-05-23 02:37 | PTCARENOTE ---
Increasing Dex in an effort to decreased Propofol. Unable to decrease Propofol at this time 2/2 agitation. Pt sits straight up in bed and stares, but does not follow commands. At this time pt BP 200s, but quickly returns to 114/40 when calm. Pt
reoriented to surroundings/emotional support provided. Will monitor.
[2023-05-23 04:30] LABS: Hematocrit 31.5 % (37.0-47.0); Hemoglobin 11.5 g/dL (12.0-16.0); Mean Corp Hgb Conc. 36.5 g/dL (33.0-37.0); Mean Corpuscular Hgb 30.9 pg (27.0-31.0); Mean Corpuscular Volume 84.7 fL (81.0-99.0); Mean Platelet Volume 8.9 fL (7.4-10.4); Platelet Count 217 10^3/uL (130-400); Red Blood Cell Count 3.72 10^6/uL (4.20-5.40); Red Cell Dist. Width 13.2 % (11.5-14.5); White Blood Cell Count 6.8 10^3/uL (4.8-10.8)
[2023-05-23 04:31] LABS: B.E. 1.3 mmol/L; HCO3 25.9 mmol/L (21-28); PCO2 40 mmHg (32-35); PO2 200 mmHg (83-108); pH 7.42 (7.35-7.45)
[2023-05-23] MEDS: PRECEDEX 100 IV ×3 (04:53→20:22)
[2023-05-23 04:54] LABS: Blood Urea Nitrogen 2 mg/dl (7-17); Calcium 8.7 mg/dl (8.4-10.2); Carbon Dioxide 26 mmol/L (22-30); Chloride 95 mmol/L (98-107); Estimated Creatinine Clearance 68 ml/min; Glucose 131 mg/dl (70-99); Magnesium 1.7 mg/dl (1.6-2.3); Potassium 3.8 mmol/L (3.5-5.1); Sodium 127 mmol/L (135-145); eGFR > 60.00
[2023-05-23] MEDS: NOVOLOG FLEXPEN-LOW RESISTANCE SC ×3 (04:59→19:15)
[2023-05-23] MEDS: DIPRIVAN 100 IV (07:08)
[2023-05-23] MEDS: MAGNESIUM SULFATE 102 GRAMS IV (07:08)
[2023-05-23] MEDS: PROTONIX IV 40 MG IV (08:34)
[2023-05-23] MEDS: NSS (PRESERVATIVE FREE) 10 ML IV (08:34)
[2023-05-23] MEDS: ELIQUIS 5 MG TUBE ×2 (08:34→20:16)
[2023-05-23] MEDS: MIRALAX 17 GRAMS TUBE (08:34)
--- NOTE | 2023-05-23 08:45 | W.PN.INTV ---
Today's Communication / Plan
Recommendations
Touch base with neurology. Question EEG/repeat head CT
Replete magnesium
DDAVP as needed
Start tube feeds
Start antibiotics
Assessment
-
67-year-old woman with past medical history significant for atrial fibrillation on anticoagulation, hypertension, diabetes, depression/anxiety who came to the hospital complaining of vomiting and constipation. Became obtunded. Found to have severe
hyponatremia. Subsequently developed seizures. Required intubation for airway protection. Transferred to the critical care unit for further care.
Toxic metabolic encephalopathy
Seizures: Likely secondary to electrolyte/metabolic derangements-required intubation and mechanical ventilation for airway protection 05/19/2023
Negative UDS/negative alcohol level
CT head negative
Life-threatening severe hyponatremia
Hypokalemia
? GI [id number] emesis versus swallowed old blood from tongue bite.
Conditions present prior admission:
Paroxysmal atrial fibrillation-on Eliquis
Hypertension
Type 2 diabetes
Depression/anxiety
Unclear compliance-Per her friend apparently she was treating herself holistically.
Assessment and plan:
Patient is critically ill, intubated on mechanical ventilation.
Remains on low-dose pressors, norepinephrine. Sodium level 127
Urine output remains brisk
Observed patient when propofol was weaned despite Precedex, becomes agitated, pulling for ET tube, tachycardic/hypertensive
Patient pulled A-line out.
Episode of hypothermia/bradycardia yesterday p.m. noted
Chest x-ray/07/05 unremarkable
Moving forward
Continue with mechanical ventilation
Maintain ASV 100% /40%/5
Airway pressures adequate, peak 13, plateau 11
ABG 7.42/40/200
Chest x-ray with appropriate ET tube, mild right lower lobe infiltrate
Unfortunately, not awake enough for weaning
Becomes severely agitated, hypertensive when propofol is weaned, pulled A-line out this morning
Given episode of hypothermia/bradycardia yesterday p.m., cultures were sent. UA is abnormal.
Await cultures
Will empirically start Zosyn/vancomycin. Pharmacy to follow Vanco levels
Would like to wean sedation to assess neurological status
Unfortunately agitation continues to be an issue
When agitated, does not follow commands
Wean off Precedex, continue propofol/fentanyl
Severe hyponatremia: Unclear etiology
Nephrology following
Normal TSH
Normal cortisol
Patient does not take any medications that may be causing SIADH. Apparently takes many supplements as outpatient, unclear if one of the supplements may have contributed to hyponatremia
Sodium level now 120
DDAVP as needed per nephrology
Brisk urine output noted
Off IV fluids
Start tube feeds
No further seizures.
Suspect due to severe hyponatremia
No indication for antiseizure medications
Continue with frequent neurological checks
neurology following
Unfortunately when sedation is weaned, patient is not following commands despite agitation
Given hypothermia, labile blood pressure/tachycardia/bradycardia, consider repeat CT imaging
Unclear whether she requires EEG
Hypotensive/on Levophed likely due to sedation. Possibly volume depleted.
Continue Levophed, wean off as able.
IV fluids per nephrology.
NG tube in place
? Coffee-ground emesis versus swallowed blood from her tongue bite
Anemia possibly dilutional
Continue PPI therapy
Continue to follow H&H
Will start tube feeds
Insulin sliding scale Target blood sugar 140-180 patient was not taking any medications in the outpatient setting.
Head of bed elevation
Aspiration precautions
DVT prophylaxis: Patient on Eliquis
GI prophylaxis: Protonix
-
Critical care statement: A total of 40 minutes of critical care time was provided for this patient today. This includes management of unstable vital signs, evaluation of the patient at bedside, reviewing the patient's pertinent medical records
including ventilator settings, arterial blood gases, radiographs, microbiology, laboratory evaluations and discussion with primary team, critical care nursing, and respiratory therapy.
Subjective Dataa
Subjective Data
Date of Service:
Date of Service: May 23, 2023
Subjective:
Patient remains critically ill. Developed hypothermia, bradycardia yesterday p.m. without any triggers. Patient continues to have labile hemodynamics. Remains on fentanyl/Precedex/propofol. With weaning of propofol, becomes agitated,
hypertensive, tachycardic. Patient pulled A-line out this morning.
Objective Data
Data Reviewed
Vital Signs / I&O / Oxygen:
Vital Signs
Temp Pulse Resp BP Pulse Ox
98.6 F 89 13 172/81 100
05/23/23 07:34 05/23/23 05:38 05/23/23 05:38 05/23/23 05:38 05/23/23 05:38
Intake and Output
05/22/23 05/23/23 05/24/23
06:59 06:59 06:59
Intake Total 1592.7 / 1628.1 1788.7 / 1788.7
Output Total 1795 / 1945 4080 / 4080
Balance -202.3 / -316.9 -2291.3 / -2291.3
SaO2 [ASV] 100
SaO2 [A/C] 100
SaO2 100
Physical Exam
General: Comfortable and Other (PICC line)
HEENT: Normocephalic, Anicteric and Other (Pupils equal and sluggish)
Cardiovascular: S1-S2, Regular Rhythm, Murmur (n), Rub (n) and Peripheral Edema (n)
Respiratory: Wheeze (n), Crackles (n), Rhonchi (n) and Non-Labored Respirations
GI: Soft, Non Distended, Non Tender and Feeding Tube
Neurology: Lethargic (Becomes tachycardic, hypertensive when awake, pulling for ET tube during sedation wean. Does not follow commands)
Skin: Cyanosis (n), Jaundice (n) and Rash (n)
Labs/Micro/Reports
Lab Data
05/23/23 04:18
05/23/23 04:18
Laboratory Results
05/23/23
04:18
pH 7.42
pCO2 40 H
pO2 200 H
HCO3 25.9
O2 Delivery Level
--- NOTE | 2023-05-23 09:16 | PTCARENOTE ---
Critical care nursing, respiratory therapy have been at bedside since begining of shift. Patient vital signs continue to be very labile. Drip management continues. Will follow updates with sas clinical programmer, hospitalist and nephrology. Lytes as ordered
continue close I/O, for urine output changes. Patient neurological status remains unchanged. Waxes and wanes from sedate to agitated. Continue attempts to interact, redirect, reorient patient. Provide supportive cares and emotional support. Nursing
remains at bedside. Await spokesperson call this am to attempt to update further medical and pharmacological history. ( Yesterday spokesperson expressed concerns related to excessive over the counter and supplemental medicines she was taking, also
some discussion about patients living will.) Will follow up this morning. Nephrology updated at bedside. Review i/o changes, new orders to follow, await grand rounds with sas clinical programmer and critical cares team.
[2023-05-23] MEDS: DDAVP 50.5 MCG IV (10:27)
[2023-05-23] MEDS: SUBLIMAZE 50 MCG IV ×2 (10:28→12:58)
[2023-05-23 10:44] LABS: Sodium 129 mmol/L (135-145)
--- NOTE | 2023-05-23 10:57 | VATNOTE ---
Called to assess PICC line d/t inability to flush garza lumen of TL PICC. Garza lumen noted to have scant blood return, and difficult to flush. Discussed at bedside with PCN and recommend instilling CathFlo; PCN states will request order from
Cashiers Supervisor MD.
[2023-05-23] MEDS: SUBLIMAZE 100 IV ×2 (11:17→19:13)
[2023-05-23] MEDS: CATHFLO/ACTIVASE 2 MG IV ×2 (11:29→13:01)
--- NOTE | 2023-05-23 11:29 | PHA.VAN.IN ---
Assessment
- Assessment
Renal Function: Appears similar to baseline
Concomitant Antimicrobials: piperacillin/tazobactam
AUC Dosing Plan
- Dosing Variables
Dosing Weight (kg): 51.7
Dosing CrCl (ml/min): 68
Vd coefficient (L/kg): 0.7
- Empiric Dosing
Initial / Loading Dose: 1250mg - administration pending
Maintenance Regimen: Vanc 500mg Q12H starting at 1800
Estimated AUC (mcg*h/mL): 468
Estimated Peak (mcg*h/mL): 26.7
Estimated Trough (mcg/ml): 13.7
Estimated Half Life (H): 11.4
- Monitoring
No levels ordered at this time: consider levels in next few days
Pharmacokinetics Vancomycin I
- -
Patient Age: 67
Patient Sex: Female
Vancomycin Day #: 1
Indication: Other
Requesting Provider: Dr. Velazquez
Pertinent Antimicrobial Allergies:
NKDA
Height / Weight:
Height 5 ft 1.5 in
Actual Weight 51.7 kg
Pertinent Past Medical History: DM2
- Vital Signs / Lab Results
Temp Pulse Resp BP Pulse Ox
96.8 F L 98 19 165/91 96
05/23/23 11:15 05/23/23 11:15 05/23/23 11:15 05/23/23 11:15 05/23/23 11:15
Lab Results - Hematology
05/21/23 05/22/23 05/22/23
03:58 04:13 20:47
WBC 6.3 5.9 6.4
05/23/23
04:18
WBC 6.8
Lab Results - Chemistry
05/20/23 05/20/23 05/20/23
07:49 09:49 12:16
BUN Cancelled Cancelled 7
Creatinine Cancelled Cancelled 0.3 L
Estimated Creat Clear Cancelled Cancelled 68
05/20/23 05/20/23 05/20/23
14:26 15:49 16:10
BUN 6 L Cancelled 5 L
Creatinine 0.4 L Cancelled 0.4 L
Estimated Creat Clear 68 Cancelled 68
05/20/23 05/20/23 05/20/23
18:52 21:08 21:53
BUN 4 L Cancelled 4 L
Creatinine 0.4 L Cancelled 0.3 L
Estimated Creat Clear 68 Cancelled 68
05/20/23 05/21/23 05/21/23
23:43 01:35 03:58
BUN 4 L 4 L 4 L
Creatinine 0.4 L 0.3 L 0.4 L
Estimated Creat Clear 68 68 68
05/21/23 05/21/23 05/21/23
05:49 08:38 09:58
BUN 4 L 3 L 3 L
Creatinine 0.3 L 0.3 L 0.3 L
Estimated Creat Clear 68 68 68
05/21/23 05/21/23 05/21/23
13:06 14:42 15:46
BUN 4 L 4 L 4 L
Creatinine 0.3 L 0.3 L 0.3 L
Estimated Creat Clear 68 68 68
05/21/23 05/22/23 05/22/23
20:07 04:13 12:43
BUN 4 L 4 L < 2 L
Creatinine 0.3 L 0.3 L 0.3 L
Estimated Creat Clear 68 68 68
05/22/23 05/22/23 05/22/23
17:56 19:55 20:00
BUN 2 L 2 L Cancelled
Creatinine 0.2 L 0.2 L Cancelled
Estimated Creat Clear 68 68 Cancelled
05/23/23
04:18
BUN 2 L
Creatinine 0.2 L
Estimated Creat Clear 68
05/22/23
20:47
Lactic Acid 0.6 L
Lab Results - Urine
05/22/23
22:02
Urine Nitrite (Reflex) Positive A
Leukocyte Esterase Rfl 2+ A
Urine WBC (Reflex) 30-40 A
Ur Squamous Epith Cells 0-2
Urine Bacteria (Reflex) Many A
Microbiology Results
05/22/23 22:02 Gram Stain - Preliminary
Sputum
[2023-05-23] MEDS: VANCOCIN 275 MG IV (11:39)
[2023-05-23 11:47] LABS: Cortisol, Random 6.1 ug/dl; TSH 0.57 uIU/ml (0.47-4.68)
--- NOTE | 2023-05-23 11:49 | PTCARENOTE ---
Nursing remains at bedside. Patient removed arterial line and clotted off picc port as noted. Critical care team at bedside with iv access team, respiratory cares and patient rn complex care. Patient continues to thrash around bed non-focal, agitated, no
commands, non-purposeful movements. Release Of Information Specialist updated, medications as ordered, adjust sedation as per protocol, await neurological team with updated plan of cares. Continue lab trends, strict i/o post DDaVp. Vacular access team for dressing change
and cath flow, arterial line dc'd, dressing clean dry dry intact. Nursing remains at bedside. Follow up antibiotics and cultures with pharmacy, medications via emar. Supportive cares ongoing..
[2023-05-23 11:55] LABS: Glucose - Point of Care 144 mg/dl (70-99)
--- NOTE | 2023-05-23 12:11 | W.PN.NEPH.PH ---
Today's Communication / Plan
-
see plan
Assessment/Plan
-
IMP:
Acute TME
Profound life threatening hyponatremia -sodium 107
Hypokalemia
Normocytic anemia
Paroxysmal atrial fibrillation
Essential hypertension
DM2 with hyperglycemia
Depression/anxiety
PLan:
A/w constipation and vomiting in ER, later became obtunded with SZ, sodium 107
Severe life threatening hyponatremia-SIADH, U osmo high at 536 high ADH stimuli from GI issues?
sodium so far appropriately improved with goal of 6-8meq/day
today goal is at upto 128, UOP increasing again will dose DDAVP
repeat sodium q4hr if increasing still add hypotonic fluids
once >130, risk of CPM decreases substantially
high risk of CPM
TSH and cortisol were ok
pressors to keep MAP>65
VDRF to protect airway, neuro follows for SZ
monitor h/h-stable, had hematemesis in ER prior to SZ
labile BPs and HR no clear etiology would suggest neuro reeval
UA with ?UTI, but gluc +ve, check phos level to r/o any proximal tubule dysfunction
poor prognosis, was reviewed with POA on admit
d/w ICU, nursing
CC time spent 35min
-
-
Date of Service: May 23, 2023
CC / HPI / ROS
-
Chief Complaint:
hyponatremia-life threatening
History of Present Illness:
Na at 125-->127 this am
given D5 + DDAVP to avoid overcorrection on 05/21
remains on pressors for hypotension
no fever, non oliguric with lafleur
off sedation very agitated and labile BPs and HR fluctuations
Review of Systems:
intubated, sedated
FIO2 40%
Labs
-
Labs:
WBC 6.8 10^3/uL (4.8-10.8) 05/23/23 04:18
RBC 3.72 10^6/uL (4.20-5.40) L 05/23/23 04:18
Hgb 11.5 g/dL (12.0-16.0) L 05/23/23 04:18
Hct 31.5 % (37.0-47.0) L 05/23/23 04:18
Plt Count 217 10^3/uL (130-400) 05/23/23 04:18
Sodium 129 mmol/L (135-145) L 05/23/23 10:12
Potassium 3.8 mmol/L (3.5-5.1) 05/23/23 04:18
Chloride 95 mmol/L (98-107) L 05/23/23 04:18
Carbon Dioxide 26 mmol/L (22-30) 05/23/23 04:18
BUN 2 mg/dl (7-17) L 05/23/23 04:18
Creatinine 0.2 mg/dL (0.6-1.0) L 05/23/23 04:18
eGFR > 60.00 05/23/23 04:18
Glucose 131 mg/dl (70-99) H 05/23/23 04:18
Calcium 8.7 mg/dl (8.4-10.2) 05/23/23 04:18
Albumin 4.3 g/dl (3.5-5.0) 05/19/23 17:03
Physical Exam
-
Vital Signs:
Vital Signs
Temp Pulse Resp BP Pulse Ox
96.8 F L 98 19 165/91 95
05/23/23 11:15 05/23/23 11:15 05/23/23 11:15 05/23/23 11:15 05/23/23 11:49
Cardiovascular:: Regular rate and rhythm
Respiratory:: Bilateral: CTA (anteriorly)
Lung Excursion:: Abnormal (intubated)
Abdomen:: Nontender and Soft
Extremity Edema:: None: Bilateral:
Lafleur Catheter: Yes
--- NOTE | 2023-05-23 12:31 | VATNOTE ---
CathFlo instilled as documented; huff lumen appears to flush slightly better, but still with minimal blood return. Recommend repeat dose. PCN to obtain.
[2023-05-23] MEDS: ZOSYN 50 IV ×2 (12:46→17:45)
--- NOTE | 2023-05-23 13:10 | PTCARENOTE ---
Vascular access team continues in and out at bedside. Nursing remains at bedside. weed science research technician prepping for study. Patients spokesperson at bedside. Going to patients house to look at medications and find living will. She stated that patient had been
having frequent falls vs seizures at home with no memory of event. That patient also hospitalized in November for thatFebruary for rapid heart rate, and was in ER in april but signed herself out. Update with Blow Off Worker and pharmacy teams. Continue
at bedside.
--- NOTE | 2023-05-23 13:18 | W.PN.HOSP.TC ---
Today's Communication/Plan
-
DDVAP
Abx
Reengage Neuro for possible EEG/imaging
Assessment / Plan
Assessment / Plan
Gen-intubated, sedated
HEENT-NC, AT, anicteric, clear oral mm
Neck-supple
CV-reg, no M, +S1/S2
Lungs-clear B/L
Abd-soft, NT, ND
Ext-no edema
Musculoskeletal-no cyanosis, clubbing
Skin-warm and dry
#Acute TME
obtunded in the emergency room.
-hyponatremia +/- Seizures cause of AMS
-Currently sedated, intubated.
-wean sedation as tolerated; goal wean off propofol, switch to dexmedetomidine
-Reengage neurology, possible underlying seizures causing altered mental status - possibly EEG/repeat ct
#Hyponatremia
� Patient was on multiple homeopathic medications and noncompliant medications�possible contributing factor for hyponatremia
-Nephro on board
- s/p 3% saline, and DDAVP yesterday; DDAVP again for rapid correction and increasing urine output
-Most likely SIADH
-TSH, cortisol WNL
-improving, monitor bmp closely; avoid overcorrection
#Acute hypoxic respiratory failure
-intubated for airway protection - although with thick brown secretions
-Switch to ASV, wean as tolerated once weaning sedation
-40% FiO2
-treatment plan as above
-PPI
#Hypotension/shock -not present on admission.
Subsequently developed after intubation and sedation.
-wean sedatives to assess BP response
-wean pressors as tolerated
-no evidence of sepsis at this time
-Maintain MAP goal greater than 65
#Sepsis
-hypothermic, helen 4/9 evening
-Start abx
-F/u urine cultures as UA pos
-F/u sputum cultures-
-F/u blood cultures
Hypokalemia -monitor and replet
Hypomagnesemia - monitor and replete
Normocytic anemia -appears chronic. Unclear etiology. Monitor for now.
Paroxysmal atrial fibrillation - Eliquis.
Essential hypertension -hold antihyhpertensives with hypotension
DM2 with hyperglycemia -need to clarify home regimen. Check hemoglobin A1c. - 5.7
Depression/anxiety
GI ppx - Start feeding
Full code
Total time spent on today's encounter was 52 minutes which included time spent in counseling the patient/family regarding diagnosis and treatment plan as listed above, goals of care, and symptom management. Case was discussed with nursing staff,
specialists, and care coordinators/case management. All labs and imaging personally reviewed by me. Remainder the time spent in detailed review of previous records, lab data, imaging, and other medical provider documentation.
Anticipated Discharge: > 48 hours
Subjective/Interval History
-
Date of Service: May 23, 2023
Agitated off sedation; hypotensive hypothermic last night; UA positive; Sputum cutlure with many WBC, gram pos cocci
Objective Data
-
Labs:
Laboratory Results
05/23/23 05/23/23
04:18 10:12
WBC 6.8
Hgb 11.5 L
Hct 31.5 L
Plt Count 217
HCO3 25.9
Sodium 127 L 129 L
Potassium 3.8
Chloride 95 L
Carbon Dioxide 26
BUN 2 L
Creatinine 0.2 L
Glucose 131 H
Calcium 8.7
Vital Signs:
Vital Signs
Temp Pulse Resp BP Pulse Ox
96.9 F L 83 14 189/83 98
05/23/23 11:45 05/23/23 12:30 05/23/23 12:30 05/23/23 12:30 05/23/23 12:30
I&O
05/22/23 05/23/2324
06:59 06:59 06:59
Intake Total 1592.7 / 1628.1 1788.7 / 1940.9 924.0 / 924.0
Output Total 1794 4080 / 4480 2700 / 2700
Balance -202.3 / -316.9 -2291.3 / -2539.1 -1776.0 / -1776.0
Review of Systems
-
History Source: Patient
All other systems: Not reviewed unless documented
Physical Exam
-
General: Well Developed, Well Nourished and No Apparent Distress
HEENT: Normocephalic, Atraumatic and Other (clean based oral ulcer on side of tongue)
Respiratory: Clear to Auscultation; Negative Wheezes or Rhonchi
Cardiac: Regular Rhythm and S1/S2; Negative Murmur
GI: Soft, Nontender, Nondistended and Normal Bowel Sounds
Musculoskeletal: No Clubbing, No Cyanosis and No Edema
Skin: Warm
Neuro: Awake
Psych: Calm
Data Reviewed
-
Diagnostic Radiology: Image personally visualized and interpreted and Report Reviewed by me
CT Scan: Image personally visualized and interpreted and Report Reviewed by me
[2023-05-23 13:33] LABS: Phosphorus 3.4 mg/dl (2.5-4.5)
--- NOTE | 2023-05-23 14:11 | VATNOTE ---
Garza lumen now flushes easily with brisk blood return after repeat dose of CathFlo.
--- NOTE | 2023-05-23 14:17 | PTCARENOTE ---
Neurology at bedside. EEG in process, will need MRI when stable. Updated history plan of cares, meds and previous home history and events. Continue drip titration vs trends and assessment trends. Vascular team back for line reassessment.
--- NOTE | 2023-05-23 14:56 | W.PN.NEURO.1 ---
Today's Communication / Plan
-
-EEG reviewed, would not start any anti seizure medications
-Would check brain MRI without contrast
-Daily sedation holiday
-No changes recommended to current sedation regimen
Will follow
Neuro Assessment/Plan
Assessment
67-year-old woman with past medical history of hypertension presented to hospital with severe hyponatremia to level 106 and had a witnessed seizure here in the hospital, required intubation.
Patient has had intermittent agitation and persistent confusion though no focal motor deficits seen
Past medical history has scant details but it seems that she has not been entirely compliant with prescription medications and seems to be seeing holistic doctor with possibly some clense therapies recently
Hyponatremia etiology not entirely clear but could have been medication induced
UDS negative
Possibilities for altered mental status
-Prolonged seizure could produce encephalopathy that can take days or sometimes be long-term
-Details unclear on homeopathic medications but possible that these could produce a toxic induced encephalopathy
-Suspected sepsis probably contributing some to a toxic metabolic encephalopathy
-Central pontine myelolysis would remain a possibility with severe hyponatremia, does not appear there is any overly rapid correction
-Ischemic stroke felt less likely but is possible with history of atrial fibrillation hypertension and diabetes
Subjective/Objective
Subjective Data
Date of Service: May 23, 2023
Patient remains intubated, required sedation with agitation, moving all 4 extremities with normal strength
Objective Data
Vital Signs
Temp Pulse Resp BP Pulse Ox
96.5 F L 81 14 150/78 98
05/23/23 14:00 05/23/23 14:00 05/23/23 14:00 05/23/23 14:00 05/23/23 14:00
Lab Results
05/23/23 04:18
05/23/23 10:12
PT 15.4 Sec (11.4-14.6) H 05/19/23 17:03
INR 1.24 05/19/23 17:03
APTT 33.9 Sec (23.4-35.0) 05/19/23 17:03
Sodium 129 mmol/L (135-145) L 05/23/23 10:12
Potassium 3.8 mmol/L (3.5-5.1) 05/23/23 04:18
BUN 2 mg/dl (7-17) L 05/23/23 04:18
Glucose 131 mg/dl (70-99) H 05/23/23 04:18
Calcium 8.7 mg/dl (8.4-10.2) 05/23/23 04:18
Phosphorus 3.4 mg/dl (2.5-4.5) 05/23/23 04:18
Patient Allergies
No Known Allergies Allergy (Verified 05/19/23 14:46)
Review of Systems
-
Unable to obtain full review of systems at this time due to: Patient Intubation and Lethargy
Physical Exam
-
General: Intubated
Eyes: No Ptosis
HEENT: Normocephalic
Neck: No Bruits Bilaterally
Respiratory: Clear to Auscultation
Cardiac: Regular Rhythm
GI: Normal Bowel Sounds
Skin: Unremarkable
Extremities: No Clubbing
Psych: Unable to Assess
Extended Neurological Exam
Attention Span & Concentration: Other (Sedated, E1V1M4)
Speech: Mute
Cranial Nerve II: Left Eye: Unreactive
Cranial Nerve II: Right Eye: Unreactive
Cranial Nerve VII: Facial Symmetry: Other (Corneal intact bilaterally)
Cranial Nerves IX, X: Palate Movement: Other (No cough seen)
Muscle Strength, Overall: Other (Withdrawal is best motor response)
Babinski Sign: Absent Bilaterally
Data Reviewed
-
CT Head: Report Reviewed and Image Reviewed
MRI Head: Ordered and Pending
EEG: Report Reviewed
Labs: Report Reviewed
--- NOTE | 2023-05-23 15:16 | PN.CDI ---
CDI
- -
CDI:
Physician Documentation Request
Admit Date: 05/19/23 18:28
Dear Doctor Patricio,
Patient admitted with hyponatremia.
05/22 PN,'Hypotension/shock -not present on admission....Subsequently developed after intubation and sedation -wean sedatives to assess BP response - wean pressors as tolerated- no evidence of sepsis at this time.'
Patient receiving IV Levophed x 3 day.
Please clarify which of the following is the most likely type of shock being treated:
Cardiogenic shock
Hypovolemic shock
Other
Use of terms such as suspected, likely, concern for, or probable (associated with a specific diagnosis that is being evaluated, monitored, or treated as if it exists) are acceptable and can be coded in the inpatient setting, when documented at the
time of discharge.
Thank you,
Susie OKEEFEN,RN,CCDS
CDI Specialist
Available via [facility] text
Please use your independent medical judgment in providing your response.
[2023-05-23 15:53] LABS: Sodium 129 mmol/L (135-145)
--- NOTE | 2023-05-23 16:06 | EEG.RPT ---
Electroencephalogram Report
Recording
Date of EE05/23/23
Type of EEG: Routine
Length of EEG recordin minutes
Done with Video Recording: Yes
Patient Status: Inpatient
Recording Conditions: Drowsy and Asleep
Hyperventilation Performed: No
Photic Stimulation Performed: Yes
Report
LESS THAN 1 HOUR EEG REPORT
LESS THAN 1 HOUR EEG INTERPRETATION:
Unremarkable EEG for age in sleep only.
CLINICAL CORRELATION:
A normal EEG does not rule out a diagnosis of epilepsy. If clinical suspicion for seizure persists, a recording capturing wakefulness may be obtained.
Clinical correlation is advised.
METHODS:
A 21 channel digitized electroencephalogram (EEG) was performed at the bedside in the ICU using the 10/20 international system of electrode placement and one-lead of ECG recorded. Video was performed. [employer] quantitative review system was utilized.
ELECTROENCEPHALOGRAPHER IMPRESSION(S):
Quality of study
Good
Background
Unremarkable
There were no significant asymmetries of background activity noted.
Sleep
Stage 2 present
Hyperventilation
Not performed
Photic Stimulation
Not performed
ECG
Normal sinus rhythm
[2023-05-23 17:35] LABS: Glucose - Point of Care 138 mg/dl (70-99)
--- NOTE | 2023-05-23 17:38 | PTCARENOTE ---
Update again with patient spokeswoman. Copy of patient supplements provided for pharmacy. Updates ongoing with nephrology and hospitalist. Director Of Business Operations at bedside. Review reinforce plan of cares, review last assessment trends. Continue with sedation,
await update, information related to hardware in patients legs from previous injury to provide for MRI. Spokesperson attempting to find information. Lab and assessment trends ongoing. Drip titration as per protocol. Following trends with pharmacy.
Complete bedbath, skin cares, oral cares provided at this time. Patient tolerated well. Vital signs ongoing.
[2023-05-23] MEDS: VANCOCIN HCL 500 MG 100 IV (17:46)
--- NOTE | 2023-05-23 20:00 | PTCARENOTE ---
rec`d pt at 1900 intubated and sedated. Rt triple luman PICC w/ levo, prop, precedex, and fent. Lt FA [address], capped. pupils reactive. +cough and gag. restrained. SR on monitor. Hr 80s. ari hugger on for a goal temp of 97 degrees. +
pulses. trace edema. coarse lung sounds. thick brown secretions through ETT. #7.5 ETT on right side. @21. OGT [address] place. +BS. no BM. lafleur draining clear, yellow, green urine. safe environment maintained.
[2023-05-23] MEDS: LEVOPHED 250 IV (20:58)
[2023-05-24] VITALS (52 sets, daily range): BP systolic 74–157; BP diastolic 51–79; BMI 21.4
--- NOTE | 2023-05-24 | PTCARENOTE ---
pt reassessed, no changes in pt assessment.
[2023-05-24] MEDS: NOVOLOG FLEXPEN-LOW RESISTANCE SC ×3 (00:25→11:45)
[2023-05-24] MEDS: ZOSYN 50 IV ×5 (00:29→23:59)
[2023-05-24 00:35] LABS: Glucose - Point of Care 116 mg/dl (70-99)
[2023-05-24] MEDS: DIPRIVAN 100 IV ×3 (01:23→19:10)
[2023-05-24] MEDS: SUBLIMAZE 100 IV ×4 (02:21→23:56)
[2023-05-24] MEDS: PRECEDEX 100 IV ×4 (02:56→19:27)
[2023-05-24 04:16] LABS: Hematocrit 34.8 % (37.0-47.0); Hemoglobin 12.6 g/dL (12.0-16.0); Mean Corp Hgb Conc. 36.2 g/dL (33.0-37.0); Mean Corpuscular Volume 85.5 fL (81.0-99.0); Mean Platelet Volume 8.9 fL (7.4-10.4); Platelet Count 231 10^3/uL (130-400); Red Blood Cell Count 4.07 10^6/uL (4.20-5.40); Red Cell Dist. Width 13.4 % (11.5-14.5)
[2023-05-24 04:40] LABS: Blood Urea Nitrogen 4 mg/dl (7-17); Calcium 8.7 mg/dl (8.4-10.2); Carbon Dioxide 26 mmol/L (22-30); Chloride 99 mmol/L (98-107); Estimated Creatinine Clearance 68 ml/min; Glucose 114 mg/dl (70-99); Magnesium 1.6 mg/dl (1.6-2.3); Potassium 3.5 mmol/L (3.5-5.1); Sodium 130 mmol/L (135-145); Triglycerides 128 mg/dl (10-149); eGFR > 60.00
[2023-05-24 05:02] LABS: B.E. 0.1 mmol/L; HCO3 25.4 mmol/L (21-28); O2 Saturation % 99.6 % (94-98); PCO2 43 mmHg (32-35); PO2 132 mmHg (83-108); pH 7.38 (7.35-7.45)
[2023-05-24 05:03] LABS: O2 Therapy VENT
[2023-05-24 05:29] LABS: Glucose - Point of Care 137 mg/dl (70-99)
[2023-05-24] MEDS: VANCOCIN HCL 500 MG 100 IV (06:04)
[2023-05-24] MEDS: KCL 160 MEQ IV (06:33)
[2023-05-24] MEDS: MAGNESIUM SULFATE 50 IV (06:33)
--- NOTE | 2023-05-24 07:44 | W.PN.NEURO.1 ---
Today's Communication / Plan
-
-Check MRI brain without contrast when stability allows
-Not recommending any anti seizure medications
-No changes recommended for sedation, do daily sedation holiday
Will follow up after MRI brain
Neuro Assessment/Plan
Assessment
67-year-old woman with past medical history of hypertension presented to hospital with severe hyponatremia to level 106 and had a witnessed seizure here in the hospital, required intubation.
Patient has had intermittent agitation and persistent confusion though no focal motor deficits seen
Past medical history has scant details but it seems that she has not been entirely compliant with prescription medications and seems to be seeing holistic doctor with possibly some clense therapies recently
Hyponatremia etiology not entirely clear but could have been medication induced
UDS negative
Possibilities for altered mental status
-Prolonged seizure could produce encephalopathy that can take days or sometimes be long-term
-Details unclear on homeopathic medications but possible that these could produce a toxic induced encephalopathy
-Suspected sepsis probably contributing some to a toxic metabolic encephalopathy
-Central pontine myelolysis would remain a possibility with severe hyponatremia, does not appear there is any overly rapid correction
-Ischemic stroke felt less likely but is possible with history of atrial fibrillation hypertension and diabetes
EEG was somewhat reassuring, no seizures or signs highly suggestive of high risk for non-convulsive seizures, showed sleep and relatively normal background rhythm
Subjective/Objective
Subjective Data
Date of Service: May 24, 2023
No acute events, remains sedated, intubated, on 1 pressor, EEG showed sleep and drowsiness yesterday, no seizures
Objective Data
Vital Signs
Temp Pulse Resp BP Pulse Ox
97.6 F 88 11 114/66 99
05/24/23 07:00 05/24/23 06:00 05/24/23 06:00 05/24/23 06:00 05/24/23 06:00
Lab Results
05/24/23 03:56
05/24/23 03:56
PT 15.4 Sec (11.4-14.6) H 05/19/23 17:03
INR 1.24 05/19/23 17:03
APTT 33.9 Sec (23.4-35.0) 05/19/23 17:03
Sodium 130 mmol/L (135-145) L 05/24/23 03:56
Potassium 3.5 mmol/L (3.5-5.1) 05/24/23 03:56
BUN 4 mg/dl (7-17) L 05/24/23 03:56
Glucose 114 mg/dl (70-99) H 05/24/23 03:56
Calcium 8.7 mg/dl (8.4-10.2) 05/24/23 03:56
Phosphorus 3.4 mg/dl (2.5-4.5) 05/23/23 04:18
Patient Allergies
No Known Allergies Allergy (Verified 05/19/23 14:46)
Review of Systems
-
Unable to obtain full review of systems at this time due to: Patient Intubation and Lethargy
Physical Exam
-
General: Intubated
Eyes: No Ptosis
HEENT: Normocephalic and Atraumatic
Neck: Full Range of Motion
Respiratory: No Dyspnea; Negative Accessory Resp Muscle Use or Decreased Breath Sounds
Cardiac: Regular Rhythm and No Murmur
GI: Soft and Non-tender
Skin: Unremarkable and Warm
Psych: Unable to Assess
Extended Neurological Exam
Mood & Affect: Unable to Assess
Attention Span & Concentration: Other (Sedated, [id number])
Memory: Unable to Assess
Tremor: Unable to Assess
Involuntary Movement: None
Speech: Mute
Cranial Nerve II: Left Eye: Other (Pupils 3 mm equal, minimal reaction to light bilaterally)
Cranial Nerve II: Right Eye: Other (Pupils 3 mm equal, minimal reaction to light bilaterally)
Cranial Nerves III, IV, : Extraocular Movement: Other (Resting gaze midline)
Cranial Nerve V: Facial Sensation: Other (Intact corneal reflex bilaterally)
Cranial Nerve VII: Facial Symmetry: Other (Grossly symmetric, intact corneal bilaterally)
Muscle Strength, Overall: Other (Minimal withdrawal in arms and legs to sternal rub and peripheral pain)
Deep Tendon Reflexes: Trace Throughout
Babinski Sign: Absent Bilaterally
Data Reviewed
-
CT Head: Report Reviewed and Image Reviewed
MRI Head: Ordered and Pending
EEG: Pending and Report Reviewed
--- NOTE | 2023-05-24 08:15 | PTCARENOTE ---
Received pt @ change of shift. Intubated/sedated w b/l soft limb restraints/4rails- see flow sheet. Lethargic, responded to deep pain stim. Pupils 3mm b/l, sluggish. CPOT 0; RASS -3. SpO2 99% on ASV 100%/5/.40. #7.5 ETT/ 21 @ lip on R side. +
cough, suctioned for mod amt of thick/carmen secretions. Auscultated coarse breath sounds b/l. SR w 1st degree AVB on monitor. Kelsie hualphonseer removed @ 0700, goal temp reached. Hypoactive BS, abd round; OGT w TF- osmo 1.2 @ 30ml/hr w 25ml/hr H20 flush;
inc BM. Álvarez in place w dark zachary/sediment urine. R TL PICC w fent/prop/dex/levo gtts and K+/Mad riders- see flow sheet/MAR. Pt. repositioned per protocol. Safe environment maintained.
[2023-05-24] MEDS: PROTONIX IV 40 MG IV (08:29)
[2023-05-24] MEDS: MIRALAX 17 GRAMS TUBE (08:29)
[2023-05-24] MEDS: ELIQUIS 5 MG TUBE ×2 (08:29→19:24)
[2023-05-24] MEDS: NSS (PRESERVATIVE FREE) 10 ML IV (08:30)
--- NOTE | 2023-05-24 08:30 | W.PN.INTV ---
Today's Communication / Plan
Recommendations
Continue with attempts to wean
Minimize sedation as able, increase Precedex
Continue antibiotics, follow cultures
Tolerating tube feeds
Eventual brain imaging
Assessment
-
67-year-old woman with past medical history significant for atrial fibrillation on anticoagulation, hypertension, diabetes, depression/anxiety who came to the hospital complaining of vomiting and constipation. Became obtunded. Found to have severe
hyponatremia. Subsequently developed seizures. Required intubation for airway protection. Transferred to the critical care unit for further care.
Toxic metabolic encephalopathy
Seizures: Likely secondary to electrolyte/metabolic derangements-required intubation and mechanical ventilation for airway protection 05/19/2023
Negative UDS/negative alcohol level
CT head negative
Life-threatening severe hyponatremia
Hypokalemia
? GI lugwx-wffygm-mdklir emesis versus swallowed old blood from tongue bite.
Conditions present prior admission:
Paroxysmal atrial fibrillation-on Eliquis
Hypertension
Type 2 diabetes
Depression/anxiety
Unclear compliance-Per her friend apparently she was treating herself holistically.
Assessment and plan:
Patient is critically ill, intubated on mechanical ventilation.
Unfortunately, she is not tolerating weaning of propofol. When awake, she sits up, posterior ET tube, does not follow commands. She was off propofol on Precedex when I witnessed this
Off norepinephrine
Remains on vancomycin/Zosyn
Received magnesium and potassium earlier this morning
Moving forward
Continue with mechanical ventilation
Maintain ASV 18% /40%/5
Airway pressures adequate, peak 13, plateau 11
Attempt to wean to CPAP as able, CPAP 5/pressure support 10
ABG 7.38/43/132
Chest x-ray with appropriate ET tube, mild right lower lobe infiltrate
Unfortunately, not awake enough for weaning
Becomes severely agitated, tachycardic in the 160s
Patient pulled A-line out
Continue with Precedex, minimize propofol as able
Resume sedation vacation and weaning attempt 05/24
Await urine cultures
Continue Zosyn/vancomycin. Pharmacy to follow Vanco levels
MRSA screen negative, discontinue vancomycin
Would like to wean sedation to assess neurological status
Unfortunately agitation continues to be an issue
When agitated, does not follow commands, becomes tachycardic in the 160s
Will continue Precedex for now, attempt to wean off propofol and fentanyl
Await repeat imaging, appreciate neurology input
EEG negative
Severe hyponatremia: Unclear etiology
Sodium has improved
Normal TSH
Normal cortisol
Patient does not take any medications that may be causing SIADH. Apparently takes many supplements as outpatient, unclear if one of the supplements may have contributed to hyponatremia
Sodium level now 120
DDAVP as needed per nephrology
Brisk urine output noted
Off IV fluids
Tolerating tube feeds
No further seizures.
Suspect due to severe hyponatremia
No indication for antiseizure medications
Continue with frequent neurological checks
neurology following, EEG negative
Unfortunately when sedation is weaned, patient is not following commands despite agitation
Await eventual brain MRI
NG tube in place
? Coffee-ground emesis versus swallowed blood from her tongue bite
Anemia possibly dilutional
Continue PPI therapy
Continue to follow H&H
Continue tube feeds
Replete electrolytes
Insulin sliding scale Target blood sugar 140-180 patient was not taking any medications in the outpatient setting.
Head of bed elevation
Aspiration precautions
DVT prophylaxis: Patient on Eliquis
GI prophylaxis: Protonix
Updated friend at bedside Bridgette
There is no family, no POA
Friend will be meeting with patient's exercise physiology professor. Documents will be provided
-
Critical care statement: A total of 38 minutes of critical care time was provided for this patient today. This includes management of unstable vital signs, evaluation of the patient at bedside, reviewing the patient's pertinent medical records
including ventilator settings, arterial blood gases, radiographs, microbiology, laboratory evaluations and discussion with primary team, critical care nursing, and respiratory therapy.
Subjective Dataa
Subjective Data
Date of Service:
Date of Service: May 24, 2023
Subjective:
Patient remains critically ill. Tolerating tube feeds. Thick secretions per respiratory. Negative fluid status noted, sodium 130. Remains on vancomycin/Zosyn
Objective Data
Data Reviewed
Vital Signs / I&O / Oxygen:
Vital Signs
Temp Pulse Resp BP Pulse Ox
97.6 F 88 11 114/66 99
05/24/23 08:03 05/24/23 06:00 05/24/23 06:00 05/24/23 06:00 05/24/23 06:00
Intake and Output
05/23/23 05/24/23 05/25/23
06:59 06:59 06:59
Intake Total 1788.7 / 1940.9 2385.8 / 2712.0 326.2 / 326.2
Output Total 4080 / 4480 3695 / 3715 / 20
Balance -2291.3 / -2539.1 -1309.2 / -1003.0 306.2 / 306.2
SaO2 [ASV] 99
SaO2 [A/C] 100
SaO2 99
Physical Exam
General: Comfortable and Other (PICC line)
HEENT: Normocephalic, Anicteric and Other (Pupils equal and sluggish)
Cardiovascular: S1-S2, Regular Rhythm, Murmur (n), Rub (n) and Peripheral Edema (n)
Respiratory: Wheeze (n), Crackles (n), Rhonchi (n) and Non-Labored Respirations
GI: Soft, Non Distended, Non Tender and Feeding Tube
Neurology: Lethargic (Becomes tachycardic, when weaned, pulling for ET tube during sedation wean. Does not follow commands)
Skin: Cyanosis (n), Jaundice (n) and Rash (n)
Labs/Micro/Reports
Lab Data
05/24/23 03:56
05/24/23 03:56
Laboratory Results
05/24/23
04:24
pH 7.38
pCO2 43 H
pO2 132 H
HCO3 25.4
O2 Delivery Level Vent
Microbiology
05/22/23 20:47 Blood/Venous Blood Culture - Preliminary
No Growth in 24 hours- Final report to follow
05/22/23 20:47 Blood/Venous Blood Culture - Preliminary
No Growth in 24 hours- Final report to follow
05/23/23 11:35 Nose Nasal Screen MRSA (PCR) - Final
MRSA not detected - performed by PCR methodology.
05/22/23 22:02 Sputum Gram Stain - Preliminary
[2023-05-24] MEDS: LEVOPHED 250 IV ×2 (09:17→18:32)
[2023-05-24] MEDS: SUBLIMAZE 50 MCG IV ×3 (10:21→12:06)
[2023-05-24] MEDS: SUBLIMAZE 100 MCG IV (11:01)
[2023-05-24 11:54] LABS: Glucose - Point of Care 147 mg/dl (70-99)
--- NOTE | 2023-05-24 12:28 | W.PN.NEPH.PH ---
Today's Communication / Plan
-
follow labs
Assessment/Plan
-
IMP:
Acute TME
Profound life threatening hyponatremia -sodium 107
Hypokalemia
Normocytic anemia
Paroxysmal atrial fibrillation
Essential hypertension
DM2 with hyperglycemia
Depression/anxiety
PLan:
A/w constipation and vomiting in ER, later became obtunded with SZ, sodium 107
Severe life threatening hyponatremia-SIADH, U osmo high at 536 high ADH stimuli from GI issues? vs holistic meds
sodium so far appropriately improved with goal of 6-8meq/day
sodium now at 130 no frequent labs needed since risk of CPM low at this level
TSH and cortisol were ok
wean pressors to keep MAP>65
VDRF to protect airway, neuro follows for SZ
monitor h/h-stable, had hematemesis in ER prior to SZ
labile BPs and HR no clear etiology , neuro wants MRI but pt not stable to have it, s/p EEG
UTI on abx per primary
poor prognosis, was reviewed with POA on admit
d/w nursing
CC time spent 31min
-
-
Date of Service: May 24, 2023
CC / HPI / ROS
-
Chief Complaint:
hyponatremia-life threatening
History of Present Illness:
Na at 130 this am
remains on pressors for hypotension
no fever, non oliguric with lafleur, UOP variable
off sedation very agitated and labile BPs and HR fluctuations
Review of Systems:
intubated, sedated
FIO2 40%
pt opens eyes but does not respond
Labs
-
Labs:
WBC 9.0 10^3/uL (4.8-10.8) 05/24/23 03:56
RBC 4.07 10^6/uL (4.20-5.40) L 05/24/23 03:56
Hgb 12.6 g/dL (12.0-16.0) 05/24/23 03:56
Hct 34.8 % (37.0-47.0) L 05/24/23 03:56
Plt Count 231 10^3/uL (130-400) 05/24/23 03:56
Sodium 130 mmol/L (135-145) L 05/24/23 03:56
Potassium 3.5 mmol/L (3.5-5.1) 05/24/23 03:56
Chloride 99 mmol/L (98-107) 05/24/23 03:56
Carbon Dioxide 26 mmol/L (22-30) 05/24/23 03:56
BUN 4 mg/dl (7-17) L 05/24/23 03:56
Creatinine 0.3 mg/dL (0.6-1.0) L 05/24/23 03:56
eGFR > 60.00 05/24/23 03:56
Glucose 114 mg/dl (70-99) H 05/24/23 03:56
Calcium 8.7 mg/dl (8.4-10.2) 05/24/23 03:56
Phosphorus 3.4 mg/dl (2.5-4.5) 05/23/23 04:18
Albumin 4.3 g/dl (3.5-5.0) 05/19/23 17:03
Physical Exam
-
Vital Signs:
Vital Signs
Temp Pulse Resp BP Pulse Ox
97.7 F 80 12 117/66 98
05/24/23 12:04 05/24/23 11:30 05/24/23 11:30 05/24/23 11:30 05/24/23 12:00
Cardiovascular:: Regular rate and rhythm
Respiratory:: Bilateral: CTA
Lung Excursion:: Abnormal
Abdomen:: Nontender and Soft
Extremity Edema:: None: Bilateral: (UE 1+)
Lafleur Catheter: Yes
--- NOTE | 2023-05-24 12:29 | PTCARENOTE ---
Addendum entered by Teresa Bains RN 05/24/23 12:52:
RT switched pt. back to original ASV settings @ 1035
Original Note:
SBT initiated by RT @ 0830 on CPAP . Gradual SAT d/t severe agitation d/t previous SAT's. Prop/fent tapered for SAT-see flow sheet. Lowest sedation rates- prop 10mcg/kg/min and fent 75mcg/hr. Pt. became increasingly
agitated/restless/attempting to sit up in bed/pull @ tube at lowest sedation rates. HR elevated into 160's. Dr. Velazquez to bedside, plan to keep pt. intubated and re-sedate. Sedation titrated back up per orders- see flow sheet and RT switched pt
back to original settings ASV 100%/. Urine, dark zachary w output between 20-30ml/hr, Dr. Cabral to bedside aware. Pt.'s friend, Janet to bedside currently, updated on plan of care. Safe environment maintained.
--- NOTE | 2023-05-24 12:45 | CM ---
CM following re: discharge planning.
Discussed in Rounds, reviewed pt's chart met with pt. Pt's friend Lilli at bedside. Per Rounds meeting, pt remains intubated, weaning trial today, Continue supportive care.
Per friend Lilli, pt lives alone in a 2SH, 2 steps to enter. Pt's friend described the pt as independent in all areas [employer], was driving.
D/C plan: uncertain at this time and will depend on pt's progress.
CM will follow with discharge plan updates as hospitalization progresses
--- NOTE | 2023-05-24 14:22 | W.PN.HOSP.TC ---
Addendum entered and electronically signed by Andrey Curry MD 05/24/23 15:49:
#Sedation Dependent Hypotension requiring vasopressors
Original Note:
Today's Communication/Plan
-
trend BMP, correct NA
Abx, f/u cultures
MRI brain
attempt to wean sedation: transition propofol to dexmedetomidine
Assessment / Plan
Assessment / Plan
Gen-intubated, sedated
HEENT-NC, AT, anicteric, clear oral mm
Neck-supple
CV-reg, no M, +S1/S2
Lungs-clear B/L
Abd-soft, NT, ND
Ext-no edema
Musculoskeletal-no cyanosis, clubbing
Skin-warm and dry
#Acute TME
obtunded in the emergency room.
-hyponatremia +/- Seizures cause of AMS
-Currently sedated, intubated.
-wean sedation as tolerated; goal wean off propofol, switch to dexmedetomidine
-Reengage neurology, possible underlying seizures causing altered mental status -EEG unremarkable
� Follow-up MRI brain today
� Of note patient has been noncompliant with medications and has been taking multiple other homeopathic medications outpatient
#Hyponatremia
� Patient was on multiple homeopathic medications and noncompliant medications�possible contributing factor for hyponatremia
-Nephro on board
- s/p 3% saline, and DDAVP
-Most likely SIADH
-TSH, cortisol WNL
-improving, monitor bmp closely; avoid overcorrection
#Acute hypoxic respiratory failure
#Tracheobronchitis
-intubated for airway protection - although with thick brown secretions
� Sputum culture with Staph aureus, gram-negative bacilli
-Switch to ASV, wean as tolerated once weaning sedation
-abx
-40% FiO2
-treatment plan as above
-PPI
#Hypotension/shock -not present on admission.
Subsequently developed after intubation and sedation.
-wean sedatives to assess BP response
-wean pressors as tolerated
-no evidence of sepsis at this time
-Maintain MAP goal greater than 65
#Sepsis
-hypothermic, helen 05/21 evening
� Possibly secondary to UTI, E. coli as well as possible tracheobronchitis
-Start abx
-F/u urine cultures as UA pos
-F/u sputum cultures-
-F/u blood cultures
Hypokalemia -monitor and replete
Hypomagnesemia - monitor and replete
Normocytic anemia -appears chronic. Unclear etiology. Monitor for now.
Paroxysmal atrial fibrillation - Eliquis.
Essential hypertension -hold antihypertensives with hypotension
DM2 with hyperglycemia -need to clarify home regimen. Check hemoglobin A1c. - 5.7
Depression/anxiety
GI ppx - Start feeding
Full code
Total time spent on today's encounter was 55 minutes which included time spent in counseling the patient/family regarding diagnosis and treatment plan as listed above, goals of care, and symptom management. Case was discussed with nursing staff,
specialists, and care coordinators/case management. All labs and imaging personally reviewed by me. Remainder the time spent in detailed review of previous records, lab data, imaging, and other medical provider documentation.
Anticipated Discharge: > 48 hours
Subjective/Interval History
-
Date of Service: May 24, 2023
Difficulty with weaning sedation, continue attempts on weaning propofol, increasing Precedex
Objective Data
-
Labs:
Laboratory Results
05/24/23 05/24/23
03:56 04:24
WBC 9.0
Hgb 12.6
Hct 34.8 L
Plt Count 231
HCO3 25.4
Sodium 130 L
Potassium 3.5
Chloride 99
Carbon Dioxide 26
BUN 4 L
Creatinine 0.3 L
Glucose 114 H
Calcium 8.7
Vital Signs:
Vital Signs
Temp Pulse Resp BP Pulse Ox
97.7 F 80 12 117/66 98
05/24/23 12:04 05/24/23 11:30 05/24/23 11:30 05/24/23 11:30 05/24/23 12:00
I&O
05/23/23 05/24/23 05/25/23
06:59 06:59 06:59
Intake Total 1788.7 / 1940.9 2385.8 / 2712.0 914.2 / 914.2
Output Total 4080 / 4480 3695 / 3715 130 / 130
Balance -2291.3 / -2539.1 -1309.2 / -1003.0 784.2 / 784.2
Review of Systems
-
Unable to obtain full review of systems at this time due to: Patient Intubation
History Source: Patient
Physical Exam
-
General: Well Developed, Well Nourished and No Apparent Distress
HEENT: Normocephalic, Atraumatic and Other (clean based oral ulcer on side of tongue)
Respiratory: Clear to Auscultation and Other (Intubated); Negative Wheezes or Rhonchi
Cardiac: Regular Rhythm and S1/S2; Negative Murmur
GI: Soft, Nontender, Nondistended and Normal Bowel Sounds
Musculoskeletal: No Clubbing, No Cyanosis and No Edema
Skin: Warm
Neuro: Awake
Psych: Calm
Data Reviewed
-
Diagnostic Radiology: Image personally visualized and interpreted and Report Reviewed by me
CT Scan: Image personally visualized and interpreted and Report Reviewed by me
Labs: Labs Reviewed by me
--- NOTE | 2023-05-24 16:34 | PTCARENOTE ---
pt. remains intubated/sedated on prop/fent/dex- see flow sheet. Levo gtt tapered per orders- see flow sheet. No changes from pervious assessment. Complete CHG bath given. Pt. repositioned per protocol. Safe environment maintained.
[2023-05-24] MEDS: NOVOLOG FLEXPEN-LOW RESISTANCE 1 UNITS SC (17:41)
[2023-05-24 17:51] LABS: Glucose - Point of Care 155 mg/dl (70-99)
--- NOTE | 2023-05-24 20:00 | PTCARENOTE ---
rec`d pt at 1900 intubated and sedated. Rt triple luman PICC w/ levo, prop, precedex, and fent. Lt FA [address], capped. pupils reactive. +cough and gag. restrained. ST to Afib on monitor. Hr low 100s. afebrile. + pulses. trace to +1 edema.
coarse lung sounds. thick brown secretions through ETT. #7.5 ETT on left side. @21. OGT in place-osmo TF @55/hr w. 25 flush. +BS. no BM. lafleur draining minimal zachary urine. safe environment maintained.
[2023-05-25] VITALS (60 sets, daily range): BP systolic 62–175; BP diastolic 38–95; BMI 22.1
--- NOTE | 2023-05-25 | PTCARENOTE ---
pt reassessed. no changes in pt assessment. levo gtt titrated per protocol.
[2023-05-25] MEDS: PRECEDEX 100 IV ×4 (00:12→19:52)
[2023-05-25 00:27] LABS: Glucose - Point of Care 169 mg/dl (70-99)
[2023-05-25] MEDS: NOVOLOG FLEXPEN-LOW RESISTANCE 300 UNITS SC (00:43)
--- NOTE | 2023-05-25 04:29 | PTCARENOTE ---
pt reassessed. no changes in pt assessment.
[2023-05-25 04:36] LABS: Triglycerides 67 mg/dl (10-149)
[2023-05-25 04:49] LABS: B.E. 3.6 mmol/L; HCO3 29.6 mmol/L (21-28); O2 Saturation % 99.9 % (94-98); PCO2 50 mmHg (32-35); PO2 128 mmHg (83-108); pH 7.38 (7.35-7.45)
[2023-05-25] MEDS: ZOSYN 50 IV ×3 (05:06→17:43)
[2023-05-25] MEDS: NOVOLOG FLEXPEN-LOW RESISTANCE 2 UNITS SC ×2 (05:15→17:45)
[2023-05-25 05:25] LABS: Glucose - Point of Care 232 mg/dl (70-99)
[2023-05-25 05:35] LABS: Hematocrit 31.7 % (37.0-47.0); Hemoglobin 11.3 g/dL (12.0-16.0); Mean Corp Hgb Conc. 35.6 g/dL (33.0-37.0); Mean Corpuscular Hgb 30.9 pg (27.0-31.0); Mean Corpuscular Volume 86.6 fL (81.0-99.0); Mean Platelet Volume 8.8 fL (7.4-10.4); Platelet Count 228 10^3/uL (130-400); Red Blood Cell Count 3.66 10^6/uL (4.20-5.40); Red Cell Dist. Width 13.7 % (11.5-14.5); White Blood Cell Count 11.2 10^3/uL (4.8-10.8)
[2023-05-25 06:11] LABS: Blood Urea Nitrogen 5 mg/dl (7-17); Calcium 8.4 mg/dl (8.4-10.2); Carbon Dioxide 27 mmol/L (22-30); Chloride 97 mmol/L (98-107); Estimated Creatinine Clearance 68 ml/min; Glucose 235 mg/dl (70-99); Magnesium 1.6 mg/dl (1.6-2.3); Sodium 131 mmol/L (135-145); eGFR > 60.00
[2023-05-25] MEDS: SUBLIMAZE 100 IV ×2 (07:24→15:53)
--- NOTE | 2023-05-25 07:43 | W.PN.NEURO.1 ---
Today's Communication / Plan
-
-Repeat EEG today
-Awaiting brain MRI without contrast
-Continue following blood work and treating suspected sepsis
-Not recommending any antiseizure medications at this time
-Daily sedation holiday
Will follow
Neuro Assessment/Plan
Assessment
67-year-old woman with past medical history of hypertension presented to hospital with severe hyponatremia to level 106 and had a witnessed seizure here in the hospital, required intubation.
Patient has had intermittent agitation and persistent confusion though no focal motor deficits seen
Past medical history has scant details but it seems that she has not been entirely compliant with prescription medications and seems to be seeing holistic doctor with possibly some clense therapies recently
Hyponatremia etiology not entirely clear but could have been medication induced
UDS negative
Possibilities for altered mental status
-Prolonged seizure could produce encephalopathy that can take days or sometimes be long-term
-Details unclear on homeopathic medications but possible that these could produce a toxic induced encephalopathy
-Suspected sepsis probably contributing some to a toxic metabolic encephalopathy
-Central pontine myelolysis would remain a possibility with severe hyponatremia, does not appear there is any overly rapid correction
-Ischemic stroke felt less likely but is possible with history of atrial fibrillation hypertension and diabetes
EEG was somewhat reassuring, no seizures or signs highly suggestive of high risk for non-convulsive seizures, showed sleep and relatively normal background rhythm
Subjective/Objective
Subjective Data
Date of Service: May 25, 2023
No acute events, remains intubated, sedated
Objective Data
Vital Signs
Temp Pulse Resp BP Pulse Ox
99.1 F 82 12 120/62 100
05/25/23 07:37 05/25/23 06:30 05/25/23 06:30 05/25/23 06:30 05/25/23 06:30
Lab Results
05/25/23 05:27
05/25/23 05:27
PT 15.4 Sec (11.4-14.6) H 05/19/23 17:03
INR 1.24 05/19/23 17:03
APTT 33.9 Sec (23.4-35.0) 05/19/23 17:03
Sodium 131 mmol/L (135-145) L 05/25/23 05:27
Potassium 4.0 mmol/L (3.5-5.1) 05/25/23 05:27
BUN 5 mg/dl (7-17) L 05/25/23 05:27
Glucose 235 mg/dl (70-99) H 05/25/23 05:27
Calcium 8.4 mg/dl (8.4-10.2) 05/25/23 05:27
Phosphorus 3.4 mg/dl (2.5-4.5) 05/23/23 04:18
Patient Allergies
No Known Allergies Allergy (Verified 05/19/23 14:46)
Review of Systems
-
Unable to obtain full review of systems at this time due to: Patient Intubation and Lethargy
Physical Exam
-
General: Intubated and Appears Chronically Ill
Eyes: No Ptosis
HEENT: Normocephalic
Neck: No Bruits Bilaterally
Respiratory: Clear to Auscultation
Cardiac: Regular Rhythm
GI: Normal Bowel Sounds
Skin: Unremarkable
Extremities: No Clubbing
Psych: Unable to Assess
Extended Neurological Exam
Attention Span & Concentration: Other (Sedated, [id number])
Memory: Unable to Assess
Tremor: Hand Tremor Absent
Involuntary Movement: None
Speech: Mute
Cranial Nerve II: Left Eye: Other (Pupils 2mm miotic equal little appreciable reaction to light)
Cranial Nerve II: Right Eye: Other (Pupils 2mm miotic equal little appreciable reaction to light)
Cranial Nerves III, IV, : Extraocular Movement: Other (Resting gaze midline)
Cranial Nerve V: Facial Sensation: Other (Corneal reflex intact bilaterally)
Cranial Nerve VII: Facial Symmetry: Other (Corneal reflex intact bilaterally)
Muscle Strength, Overall: Other (Minimal grimace and withdrawal in the trunk to pain, no movements of limbs to peripheral pain)
Deep Tendon Reflexes: Absent Throughout
Touch Sensation: Other (Minimal grimace and withdrawal in the trunk to pain, no movements of limbs to peripheral pain)
Babinski Sign: Absent Bilaterally
Gait & Station: Unable to Assess
Data Reviewed
-
CT Head: Image Reviewed
MRI Head: Ordered and Pending
EEG: Ordered and Pending
--- NOTE | 2023-05-25 07:45 | W.PN.INTV ---
Today's Communication / Plan
Recommendations
Continues to have episodic tachycardia 140s to 160s with weaning of propofol
Will consider transition from norepinephrine to Iván-Synephrine
Intermittent CPAP as able
Sodium levels have improved
Replete magnesium
Continue tube feeds
If tachycardia continues to be an issue, may require amiodarone, cardiology evaluation. Will defer to primary service
Assessment
-
67-year-old woman with past medical history significant for atrial fibrillation on anticoagulation, hypertension, diabetes, depression/anxiety who came to the hospital complaining of vomiting and constipation. Became obtunded. Found to have severe
hyponatremia. Subsequently developed seizures. Required intubation for airway protection. Transferred to the critical care unit for further care.
Toxic metabolic encephalopathy
Seizures: Likely secondary to electrolyte/metabolic derangements-required intubation and mechanical ventilation for airway protection 05/19/2023
Negative UDS/negative alcohol level
CT head negative
Life-threatening severe hyponatremia
Hypokalemia
? GI [id number]-xihwks emesis versus swallowed old blood from tongue bite.
Conditions present prior admission:
Paroxysmal atrial fibrillation-on Eliquis
Hypertension
Type 2 diabetes
Depression/anxiety
Unclear compliance-Per her friend apparently she was treating herself holistically.
Assessment and plan:
Patient is critically ill, intubated on mechanical ventilation.
Unfortunately, she is not tolerating weaning of propofol. When awake, she sits up, posterior ET tube, does not follow commands. She was off propofol on Precedex when I witnessed this
Remains on norepinephrine at 6 mcg for labile blood pressure
Tachycardia in the 140s with any attempts to wean propofol
Remains on vancomycin/Zosyn
Electrolyte abnormalities noted
Moving forward
Continue with mechanical ventilation
Maintain ASV 80% /40%/5
Transition to CPAP as able
ABG 7.38/50/128
Chest x-ray with appropriate ET tube, no obvious infiltrate
Unfortunately, not awake enough for weaning
Becomes severely agitated, tachycardic in the 160s
Patient pulled A-line out
Continue with Precedex, minimize propofol as able
Resume sedation vacation and weaning attempt as able
Will consider transition to Iván-Synephrine to lessen tachycardia
Await urine cultures
Continue Zosyn/vancomycin. Pharmacy to follow Vanco levels
MRSA screen negative, discontinue vancomycin
Would like to wean sedation to assess neurological status
Unfortunately agitation continues to be an issue
When agitated, does not follow commands, becomes tachycardic in the 160s
Will continue Precedex for now, attempt to wean off propofol and fentanyl
Await repeat imaging, appreciate neurology input
EEG negative, repeat EEG pending
Hyponatremia has improved
Nephrology following
Tolerating tube feeds
No further seizures.
Suspect due to severe hyponatremia
No indication for antiseizure medications
Continue with frequent neurological checks
neurology following, EEG negative
Unfortunately when sedation is weaned, patient is not following commands despite agitation
Await eventual brain MRI
NG tube in place
? Coffee-ground emesis versus swallowed blood from her tongue bite
Anemia possibly dilutional
Continue PPI therapy
Continue to follow H&H
Continue tube feeds
Replete electrolytes
Insulin sliding scale Target blood sugar 140-180 patient was not taking any medications in the outpatient setting.
Head of bed elevation
Aspiration precautions
DVT prophylaxis: Patient on Eliquis
GI prophylaxis: Protonix
Updated friend at bedside Bridgette
There is no family, no POA
Friend will be meeting with patient's sand analyst. Documents will be provided
-
Critical care statement: A total of 32 minutes of critical care time was provided for this patient today. This includes management of unstable vital signs, evaluation of the patient at bedside, reviewing the patient's pertinent medical records
including ventilator settings, arterial blood gases, radiographs, microbiology, laboratory evaluations and discussion with primary team, critical care nursing, and respiratory therapy.
Subjective Dataa
Subjective Data
Date of Service:
Date of Service: May 25, 2023
Subjective:
Unfortunate, patient remains critically ill. Becomes tachycardic with any attempts to wean propofol. Patient still not following commands. EEG today per neurology. Remains on pressors
Objective Data
Data Reviewed
Vital Signs / I&O / Oxygen:
Vital Signs
Temp Pulse Resp BP Pulse Ox
99.1 F 82 12 120/62 100
05/25/23 07:37 05/25/23 06:30 05/25/23 06:30 05/25/23 06:30 05/25/23 06:30
Intake and Output
05/24/23 05/25/23 05/26/23
06:59 06:59 06:59
Intake Total 2385.8 / 2712.0 3591.3 / 3740.3 149.0 / 149.0
Output Total 3695 / 3715 1465 / 1665 200 / 200
Balance -1309.2 / -1003.0 2126.3 / 2075.3 -51.0 / -51.0
SaO2 [ASV] 100
SaO2 [A/C] 100
SaO2 100
Physical Exam
General: Comfortable and Other (PICC line)
HEENT: Normocephalic, Anicteric and Other (Pupils equal and sluggish)
Cardiovascular: S1-S2, Regular Rhythm, Murmur (n), Rub (n) and Peripheral Edema (n)
Respiratory: Wheeze (n), Crackles (n), Rhonchi (n) and Non-Labored Respirations
GI: Soft, Non Distended, Non Tender and Feeding Tube
Neurology: Lethargic (Becomes tachycardic, when weaned, pulling for ET tube during sedation wean. Does not follow commands)
Skin: Cyanosis (n), Jaundice (n) and Rash (n)
Labs/Micro/Reports
Lab Data
05/25/23 05:27
05/25/23 05:27
Laboratory Results
05/25/23
04:42
pH 7.38
pCO2 50 H
pO2 128 H
HCO3 29.6 H
O2 Delivery Level
Microbiology
05/22/23 22:02 Urine Urine Culture - Preliminary
Escherichia coli
05/22/23 22:02 Sputum Respiratory Culture - Preliminary
Staphylococcus aureus
Gram negative bacilli
05/22/23 22:02 Sputum Gram Stain - Preliminary
05/22/23 20:47 Blood/Venous Blood Culture - Preliminary
No Growth in 48 hours- Final report to follow
05/22/23 20:47 Blood/Venous Blood Culture - Preliminary
No Growth in 48 hours- Final report to follow
05/23/23 11:35 Nose Nasal Screen MRSA (PCR) - Final
MRSA not detected - performed by PCR methodology.
[2023-05-25] MEDS: DIPRIVAN 100 IV ×2 (07:47→17:43)
--- NOTE | 2023-05-25 08:30 | PTCARENOTE ---
Received pt @ change of shift. Intubated/sedated w b/l soft limb restraints/4 rails- see flow sheet. Lethargic, responded to painful stimuli. Pupils 3mm b/l, sluggish. EEG in progress @ bedside. Afib on monitor. Trace anasarca. SpO2 98% on vent
settings ASV 80%/5/.40. #7.5 ETT/21 @ lip on L side. Auscultated coarse breath sounds throughout. Suctioned for lg amts of thick carmen/brown secretions. Hypoactive BS, abd round. Álvarez in place draining yellow urine. Pt. repositioned per protocol. R
TL PICC w fent/prop/dex/levo-see MAR/flow sheet. Safe environment maintained.
[2023-05-25] MEDS: ELIQUIS 5 MG TUBE ×2 (08:35→19:53)
[2023-05-25] MEDS: MIRALAX 17 GRAMS TUBE (08:35)
[2023-05-25] MEDS: MUCOMYST 10% 2 ML INH ×2 (10:03→19:47)
[2023-05-25] MEDS: VENTOLIN NEBULES 2.5 MG INH ×2 (10:14→19:48)
[2023-05-25] MEDS: MAGNESIUM SULFATE 50 IV (10:40)
[2023-05-25] MEDS: SUBLIMAZE 50 MCG IV ×3 (11:36→23:25)
[2023-05-25 11:46] LABS: Glucose - Point of Care 184 mg/dl (70-99)
--- NOTE | 2023-05-25 12:00 | PTCARENOTE ---
CPAP wean initiated by RT @ 0830. Gradual SAT d/t previous agitation w SAT's. Prop/fent tapered per orders-see flow sheet. RT further weaned settings to CPAP . During SAT pt.'s eyes opened spontaneously but did not follow
commands/move extremities purposefully. Rhythm remains afib w rates up to 170's. Fent bolus admin for CPOT 3- see MAR. Fent gtt titrated for CPOT and prop titrated for RASS- see flow sheet. RT switched pt back to ASV settings 80%/40.
Tolerated vent wean/gradual SAT for approx 3H.
[2023-05-25] MEDS: NOVOLOG FLEXPEN-LOW RESISTANCE 1 UNITS SC (13:14)
--- NOTE | 2023-05-25 14:22 | W.PN.HOSP.TC ---
Addendum entered and electronically signed by Andrey Curry MD 05/25/23 14:35:
attempt to wean off norepi, switch to mack in hope of better control of afib
Original Note:
Today's Communication/Plan
-
abx - narrow as appropriate
f/u final cultures
Wean prop if possible
EEG and MRI
cards consult for uncontrolled afib
Assessment / Plan
Assessment / Plan
Gen-intubated, sedated
HEENT-NC, AT, anicteric, clear oral mm
Neck-supple
CV-reg, no M, +S1/S2
Lungs-clear B/L
Abd-soft, NT, ND
Ext-no edema
Musculoskeletal-no cyanosis, clubbing
Skin-warm and dry
#Acute TME
obtunded in the emergency room.
-hyponatremia +/- Seizures cause of AMS
-Currently sedated, intubated.
-wean sedation as tolerated; goal wean off propofol, switch to dexmedetomidine
-Reengage neurology, possible underlying seizures causing altered mental status -EEG unremarkable
� Follow-up MRI brain today
-Repeat EEG today
� Of note patient has been noncompliant with medications and has been taking multiple other homeopathic medications outpatient
#Hyponatremia
� Patient was on multiple homeopathic medications and noncompliant medications�possible contributing factor for hyponatremia
-Nephro on board
- s/p 3% saline, and DDAVP
-Most likely SIADH
-TSH, cortisol WNL
-improving, monitor bmp closely; avoid overcorrection
#Acute hypoxic respiratory failure
#Pneumonia
-intubated for airway protection - although with thick brown secretions
� Sputum culture with MSSA, K. Pneumoniae
-Switch to ASV, wean as tolerated once weaning sedation
-abx
-40% FiO2
-treatment plan as above
-PPI
#Hypotension/shock -not present on admission.
Subsequently developed after intubation and sedation.
-wean sedatives to assess BP response
-wean pressors as tolerated
-no evidence of sepsis at this time
-Maintain MAP goal greater than 65
#Sepsis
-hypothermic, helen 4/9 evening
� Possibly secondary to UTI, E. coli as well as possible tracheobronchitis
-Start abx
-F/u urine cultures as UA pos: Ecoli, Enterococcus
-F/u sputum cultures- MSSA, K. Pneumoniae
#Paroxysmal atrial fibrillation
- Eliquis.
-Uncontrolled
-Cards consulted
-Possible initiation of amio
Hypokalemia -monitor and replete
Hypomagnesemia - monitor and replete
Normocytic anemia -appears chronic. Unclear etiology. Monitor for now.
Essential hypertension -hold antihypertensives with hypotension
DM2 with hyperglycemia -need to clarify home regimen. Check hemoglobin A1c. - 5.7
Depression/anxiety
GI ppx - Start feeding
Full code
Total time spent on today's encounter was 52 minutes which included time spent in counseling the patient/family regarding diagnosis and treatment plan as listed above, goals of care, and symptom management. Case was discussed with nursing staff,
specialists, and care coordinators/case management. All labs and imaging personally reviewed by me. Remainder the time spent in detailed review of previous records, lab data, imaging, and other medical provider documentation.
Anticipated Discharge: > 48 hours
Subjective/Interval History
-
Date of Service: May 25, 2023
afib not under control; thick brown secretions from ETT
Objective Data
-
Labs:
Laboratory Results
05/25/23 05/25/23
04:42 05:27
WBC 11.2 H
Hgb 11.3 L
Hct 31.7 L
Plt Count 228
HCO3 29.6 H
Sodium 131 L
Potassium 4.0
Chloride 97 L
Carbon Dioxide 27
BUN 5 L
Creatinine 0.3 L
Glucose 235 H
Calcium 8.4
Vital Signs:
Vital Signs
Temp Pulse Resp BP Pulse Ox
99.2 F 138 12 96/57 98
05/25/23 11:20 05/25/23 10:29 05/25/23 10:29 05/25/23 09:30 05/25/23 12:00
I&O
05/24/23 05/25/23 05/26/23
06:59 06:59 06:59
Intake Total 2385.8 / 2712.0 3591.3 / 3740.3 901.3 / 901.3
Output Total 3695 / 3715 1465 / 1665 670 / 670
Balance -1309.2 / -1003.0 2126.3 / 2075.3 231.3 / 231.3
Review of Systems
-
History Source: Patient
All other systems: Not reviewed unless documented
Data Reviewed
-
Diagnostic Radiology: Image personally visualized and interpreted and Report Reviewed by me
CT Scan: Image personally visualized and interpreted and Report Reviewed by me
Labs: Labs Reviewed by me
--- NOTE | 2023-05-25 14:34 | CM ---
M following re: discharge planning.
Discussed in Rounds, reviewed pt's chart met with pt. Per Rounds meeting, pt remains intubated, weaning trial today, continue supportive care.
Per friend Lilli, pt lives alone in a 2SH, 2 steps to enter. 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
D/C plan: uncertain at this time and will depend on pt's progress.
CM will follow with discharge plan updates as hospitalization progresses
--- NOTE | 2023-05-25 14:58 | W.PN.NEPH.PH ---
Today's Communication / Plan
-
- Na improving
Assessment/Plan
-
IMP:
Acute TME
Profound life threatening hyponatremia -sodium 107
Hypokalemia
Normocytic anemia
Paroxysmal atrial fibrillation
Essential hypertension
DM2 with hyperglycemia
Depression/anxiety
PLan:
A/w constipation and vomiting in ER, later became obtunded with SZ, sodium 107
Severe life threatening hyponatremia-SIADH, U osmo high at 536 high ADH stimuli from GI issues? vs holistic meds
sodium so far appropriately improved with goal of 6-8meq/day
sodium now at 131 no frequent labs needed since risk of CPM low at this level
TSH and cortisol were ok
wean pressors to keep MAP>65
VDRF to protect airway, neuro follows for SZ
monitor h/h-stable, had hematemesis in ER prior to SZ
labile BPs and HR no clear etiology , neuro wants MRI but pt not stable to have it, s/p EEG
UTI on abx per primary
poor prognosis, was reviewed with POA on admit
d/w nursing
CC time spent 31min
-
-
Date of Service: May 25, 2023
CC / HPI / ROS
-
Chief Complaint:
hyponatremia-life threatening
History of Present Illness:
Na at 130 this am
remains on pressors for hypotension
no fever, non oliguric with lafleur, UOP variable
off sedation very agitated and labile BPs and HR fluctuations
Review of Systems:
intubated, sedated
FIO2 40%
pt opens eyes but does not respond
Labs
-
Labs:
WBC 11.2 10^3/uL (4.8-10.8) H 05/25/23 05:27
RBC 3.66 10^6/uL (4.20-5.40) L 05/25/23 05:27
Hgb 11.3 g/dL (12.0-16.0) L 05/25/23 05:27
Hct 31.7 % (37.0-47.0) L 05/25/23 05:27
Plt Count 228 10^3/uL (130-400) 05/25/23 05:27
Sodium 131 mmol/L (135-145) L 05/25/23 05:27
Potassium 4.0 mmol/L (3.5-5.1) 05/25/23 05:27
Chloride 97 mmol/L (98-107) L 05/25/23 05:27
Carbon Dioxide 27 mmol/L (22-30) 05/25/23 05:27
BUN 5 mg/dl (7-17) L 05/25/23 05:27
Creatinine 0.3 mg/dL (0.6-1.0) L 05/25/23 05:27
eGFR > 60.00 05/25/23 05:27
Glucose 235 mg/dl (70-99) H 05/25/23 05:27
Calcium 8.4 mg/dl (8.4-10.2) 05/25/23 05:27
Phosphorus 3.4 mg/dl (2.5-4.5) 05/23/23 04:18
Albumin 4.3 g/dl (3.5-5.0) 05/19/23 17:03
Physical Exam
-
Vital Signs:
Vital Signs
Temp Pulse Resp BP Pulse Ox
99.2 F 138 12 96/57 98
05/25/23 11:20 05/25/23 10:29 05/25/23 10:29 05/25/23 09:30 05/25/23 12:00
Cardiovascular:: Regular rate and rhythm
Respiratory:: Bilateral: Coarse (mechanical breath sonds)
Lung Excursion:: Abnormal
Abdomen:: Nontender and Soft
Bowel Sounds:: Normal
Extremity Edema:: None: Bilateral:
Lafleur Catheter: Yes
--- NOTE | 2023-05-25 16:58 | RESPNOTE ---
ETT steiner changed earlier today.completed without incident. skin dry and intact underneath,no redness or breakdown noted. EXUDERM applied under ETT steiner for skin protection. 7.5 ETT re-secured on RIGHT side of mouth @21 manda.
--- NOTE | 2023-05-25 17:13 | PTCARENOTE ---
Rhythm remains in afib and rate remains high 110-130's. Dr. Curry aware. Further orders received to change levo to mack. Levo gtt off and mack gtt initiated- see flow sheet. HR improve to 80's-90's. L arm noted to be more edematous, +2. DrJimena
Mady also aware. Peripheral IV removed. Further orders received for US, awaiting test.
[2023-05-25 17:26] LABS: Glucose - Point of Care 241 mg/dl (70-99)
--- NOTE | 2023-05-25 20:00 | PTCARENOTE ---
Received pt intubated and sedated on precedex, propofol and fentanyl gtts. Pt. opens eyes briefly but no commands followed or tracking. + gag/cough. Pupils 3mm, sluggish. Restraints in place for safety. #7.5 ETT, 21 at lip, moved to center. ASV
80%MV, +5, 40%fio2. Pulseox 97%. Lungs coarse and dim at bases. Suctioned for small amt thick carmen. SR/ST with PACs, HR 90s-100s. Tachycardic 120s after being suctioned and stimulated with care. BP labile with mack gtt on to maintain MAP >65. OG tube
with osmo @ 30ml/hr and 25ml/hr h20 flush per orders. Placement verified. Hypoactive bowel sounds. Álvarez draining yellow/sl zachary urine. See I&O. R TL PICC with fentanyl, prop, precedex and mack gtts. Monitoring
[2023-05-26] VITALS (80 sets, daily range): BP systolic 69–152; BP diastolic 43–90; BMI 22.0
--- NOTE | 2023-05-26 | PTCARENOTE ---
PT reassessed. No changes in assessment. Bathed with CHG. Mouth + lafleur care provided. LUE ultrasound completed at bedside. Attempting to wean mack gtt.
[2023-05-26] MEDS: SUBLIMAZE 100 IV ×4 (00:15→21:25)
[2023-05-26 00:32] LABS: Glucose - Point of Care 176 mg/dl (70-99)
[2023-05-26] MEDS: NOVOLOG FLEXPEN-LOW RESISTANCE 1 UNITS SC ×2 (00:33→17:35)
[2023-05-26] MEDS: ZOSYN 50 IV ×4 (00:35→17:35)
[2023-05-26] MEDS: OFIRMEV 100 IV (03:19)
[2023-05-26 04:00] LABS: Hematocrit 28.8 % (37.0-47.0); Mean Corp Hgb Conc. 34.7 g/dL (33.0-37.0); Mean Corpuscular Hgb 30.9 pg (27.0-31.0); Mean Corpuscular Volume 88.9 fL (81.0-99.0); Mean Platelet Volume 8.9 fL (7.4-10.4); Platelet Count 234 10^3/uL (130-400); Red Blood Cell Count 3.24 10^6/uL (4.20-5.40); Red Cell Dist. Width 13.6 % (11.5-14.5); White Blood Cell Count 9.6 10^3/uL (4.8-10.8)
[2023-05-26 04:30] LABS: Blood Urea Nitrogen 8 mg/dl (7-17); Calcium 7.7 mg/dl (8.4-10.2); Carbon Dioxide 29 mmol/L (22-30); Chloride 100 mmol/L (98-107); Estimated Creatinine Clearance 68 ml/min; Glucose 164 mg/dl (70-99); Potassium 3.4 mmol/L (3.5-5.1); Sodium 134 mmol/L (135-145); eGFR > 60.00
[2023-05-26] MEDS: DIPRIVAN 100 IV ×2 (04:48→16:45)
[2023-05-26] MEDS: PRECEDEX 100 IV ×5 (04:55→23:30)
[2023-05-26] MEDS: KCL 270 MEQ IV (05:07)
--- NOTE | 2023-05-26 05:29 | PTCARENOTE ---
~0450, pt flipped back into afib, HR 130s sustained. BP dropped 70s/50s. UNSTACKER notified. No intervention, pt. broke back into NSR, HR 70s within 20 minutes. Remains sedated on prop, dex and fent. Was febrile up to 100.6 around 0300, ofirmev given.
Now 99.9.
[2023-05-26] MEDS: NEO-SYNEPHRINE 250 IV (05:43)
[2023-05-26] MEDS: NOVOLOG FLEXPEN-LOW RESISTANCE 300 UNITS SC (05:43)
[2023-05-26 05:53] LABS: Glucose - Point of Care 157 mg/dl (70-99)
--- NOTE | 2023-05-26 07:16 | W.PN.INTV ---
Today's Communication / Plan
Recommendations
Restart diltiazem, low-dose/short acting
Replete potassium
Dobbhoff tube, continue nutrition
Sodium levels normalized
Daily SBT, sedation vacation
Await determination of long-term goals
Assessment
-
67-year-old woman with past medical history significant for atrial fibrillation on anticoagulation, hypertension, diabetes, depression/anxiety who came to the hospital complaining of vomiting and constipation. Became obtunded. Found to have severe
hyponatremia. Subsequently developed seizures. Required intubation for airway protection. Transferred to the critical care unit for further care.
Toxic metabolic encephalopathy
Seizures: Likely secondary to electrolyte/metabolic derangements-required intubation and mechanical ventilation for airway protection 05/19/2023
Negative UDS/negative alcohol level
CT head negative
Life-threatening severe hyponatremia
Hypokalemia
? GI ooxnu-zzleud-khrgrp emesis versus swallowed old blood from tongue bite.
Intermittent atrial tachycardia
Conditions present prior admission:
Paroxysmal atrial fibrillation-on Eliquis
Hypertension
Type 2 diabetes
Depression/anxiety
Unclear compliance-Per her friend apparently she was treating herself holistically.
Assessment and plan:
Patient is critically ill, intubated on mechanical ventilation.
Unfortunately, she is not tolerating weaning of propofol. When awake, she sits up, posterior ET tube, does not follow commands. She was off propofol on Precedex when I witnessed this
During SBT today, heart rate went to the 150s to 200s
Remains on Zosyn
Electrolyte abnormalities noted, received potassium
Left upper extremity Doppler negative for DVT
Chest x-ray 05/24 with bibasilar atelectasis
Moving forward
Continue with mechanical ventilation
Maintain ASV 80% /40%/5
Transition to CPAP as able, limited by atrial tachycardia during wean
ABG 7.38/50/128
Chest x-ray with appropriate ET tube, no obvious infiltrate
Unfortunately, not awake enough for weaning
Becomes severely agitated, tachycardic in the 160s
Continue with propofol/fentanyl
Resume sedation vacation and weaning attempt as able
May require rate control and/our cardiology evaluation
Lets restart diltiazem, short acting and reassess, following hemodynamics
Urine culture positive for E. coli, sputum culture positive for Klebsiella
Continue antibiotics, Zosyn continues
MRSA screen negative, vancomycin discontinued
Would like to wean sedation to assess neurological status
Unfortunately agitation continues to be an issue
When agitated, does not follow commands, becomes tachycardic in the 160s
Continue with propofol/fentanyl, daily wean as able
Neurology following
EEG negative, repeat EEG pending
Eventual repeat neuro imaging
Hyponatremia has improved
Seizure at time of presentation in ED noted
Nephrology following, sodium level now normal
Tolerating tube feeds
No further seizures.
Suspect due to severe hyponatremia
No indication for antiseizure medications
Continue with frequent neurological checks
neurology following, EEG negative
Unfortunately when sedation is weaned, patient is not following commands despite agitation
Await eventual brain MRI
Continue PPI therapy
Continue to follow H&H
Continue tube feeds
Transition from NG tube to Dobbhoff tube
Replete electrolytes
Insulin sliding scale Target blood sugar 140-180 patient was not taking any medications in the outpatient setting.
Head of bed elevation
Aspiration precautions
DVT prophylaxis: Patient on Eliquis
GI prophylaxis: Protonix
Updated friend at bedside Bridgette
There is no family, no POA
Friend will be meeting with patient's drophammer operator. Documents will be provided
-
Critical care statement: A total of 32 minutes of critical care time was provided for this patient today. This includes management of unstable vital signs, evaluation of the patient at bedside, reviewing the patient's pertinent medical records
including ventilator settings, arterial blood gases, radiographs, microbiology, laboratory evaluations and discussion with primary team, critical care nursing, and respiratory therapy.
Subjective Dataa
Subjective Data
Date of Service:
Date of Service: May 26, 2023
Subjective:
Patient remains critically ill. Unfortunately, upon SBT this morning, woke up, heart rate 150s to 200s, not following commands. Doppler left upper extremity yesterday negative for clot. Low-grade fever noted. Labile pressure continues
Objective Data
Data Reviewed
Vital Signs / I&O / Oxygen:
Vital Signs
Temp Pulse Resp BP Pulse Ox
100.6 F H 76 14 115/62 100
05/26/23 03:12 05/26/23 06:30 05/26/23 06:30 05/26/23 06:30 05/26/23 06:30
Intake and Output
05/25/23 05/26/23 05/27/23
06:59 06:59 06:59
Intake Total 3591.3 / 3740.3 2948.9 / 2948.9
Output Total 1465 / 1665 2245 / 2245
Balance 2126.3 / 2075.3 703.9 / 703.9
SaO2 [ASV] 100
SaO2 [A/C] 100
SaO2 100
Physical Exam
General: Comfortable and Other (PICC line)
HEENT: Normocephalic, Anicteric and Other (Pupils equal and sluggish)
Cardiovascular: S1-S2, Regular Rhythm, Murmur (n), Rub (n) and Peripheral Edema (n)
Respiratory: Wheeze (n), Crackles (n), Rhonchi (n) and Non-Labored Respirations
GI: Soft, Non Distended, Non Tender and Feeding Tube
Neurology: Lethargic (Becomes tachycardic, when weaned, pulling for ET tube during sedation wean. Does not follow commands)
Skin: Cyanosis (n), Jaundice (n) and Rash (n)
Labs/Micro/Reports
Lab Data
05/26/23 03:42
05/26/23 03:42
Microbiology
05/22/23 20:47 Blood/Venous Blood Culture - Preliminary
No Growth in 72 hours- Final report to follow
05/22/23 20:47 Blood/Venous Blood Culture - Preliminary
No Growth in 72 hours- Final report to follow
05/22/23 22:02 Sputum Respiratory Culture - Final
S aureus-Methicillin Sensitive
Klebsiella pneumoniae
05/22/23 22:02 Sputum Gram Stain - Final
05/22/23 22:02 Urine Urine Culture - Preliminary
Escherichia coli
Enterococcus species
05/23/23 11:35 Nose Nasal Screen MRSA (PCR) - Final
MRSA not detected - performed by PCR methodology.
[2023-05-26] MEDS: MIRALAX 17 GRAMS TUBE (08:09)
[2023-05-26] MEDS: ELIQUIS 5 MG TUBE ×2 (08:09→19:29)
[2023-05-26] MEDS: MUCOMYST 10% 2 ML INH ×2 (08:16→19:57)
[2023-05-26] MEDS: VENTOLIN NEBULES 2.5 MG INH ×2 (08:16→19:58)
--- NOTE | 2023-05-26 08:30 | PTCARENOTE ---
Received pt intubated and sedated on precedex, propofol and fentanyl gtts. Pt. opens eyes briefly but no commands followed or tracking. + gag/cough. Pupils 5mm, sluggish. Restraints in place for safety. #7.5 ETT, 21 at lip. ASV 80%MV, +5, 40%FiO2.
Pulseox 99%. Lungs coarse and dim at bases. Suctioned for mod amt thick carmen. SR/ST with PACs, HR 80s-100s. Converted to afib 130s when turned off sedation. Neosynephrine gtt decreased to maintain MAP >65. OG tube with osmo @ 30ml/hr and 25ml/hr h20
flush per orders. Placement verified. Hypoactive bowel sounds. Álvarez draining yellow urine. See I&O. R TL PICC with fentanyl, prop, precedex and mack gtts. KCL replacement IV infusing.
--- NOTE | 2023-05-26 09:05 | PTCARENOTE ---
When pt placed on CPAP, Afib to 150-200s. BP to 78/66. Jewelry Manager notified and ordered to restart sedation.
[2023-05-26 12:03] LABS: Glucose - Point of Care 215 mg/dl (70-99)
[2023-05-26] MEDS: NOVOLOG FLEXPEN-LOW RESISTANCE 2 UNITS SC (12:23)
--- NOTE | 2023-05-26 14:32 | W.PN.NEPH.PH ---
Today's Communication / Plan
-
- Na improved to 134
Assessment/Plan
-
IMP:
Acute TME
Profound life threatening hyponatremia -sodium 107
Hypokalemia
Normocytic anemia
Paroxysmal atrial fibrillation
Essential hypertension
DM2 with hyperglycemia
Depression/anxiety
PLan:
A/w constipation and vomiting in ER, later became obtunded with SZ, sodium 107
Severe life threatening hyponatremia-SIADH, U osmo high at 536 high ADH stimuli from GI issues? vs holistic meds
sodium so far appropriately improved with goal of 6-8meq/day
sodium now at 134 no frequent labs needed since risk of CPM low at this level
TSH and cortisol were ok
wean pressors to keep MAP>65
VDRF to protect airway, neuro follows for SZ
monitor h/h-stable, had hematemesis in ER prior to SZ
labile BPs and HR no clear etiology , neuro wants MRI but pt not stable to have it, s/p EEG
UTI on abx per primary
poor prognosis, was reviewed with POA on admit
d/w nursing
CC time spent 31min
-
-
Date of Service: May 26, 2023
CC / HPI / ROS
-
Chief Complaint:
hyponatremia-life threatening
History of Present Illness:
Na at 134 this am
remains on pressors for hypotension
febrile, non oliguric with lafleur, UOP variable
off sedation very agitated and labile BPs and HR fluctuations
Review of Systems:
intubated, sedated
pt opens eyes but does not respond
Labs
-
Labs:
WBC 9.6 10^3/uL (4.8-10.8) 05/26/23 03:42
RBC 3.24 10^6/uL (4.20-5.40) L 04/13/24 03:42
Hgb 10.0 g/dL (12.0-16.0) L 05/26/23 03:42
Hct 28.8 % (37.0-47.0) L 05/26/23 03:42
Plt Count 234 10^3/uL (130-400) 05/26/23 03:42
Sodium 134 mmol/L (135-145) L 05/26/23 03:42
Potassium 3.4 mmol/L (3.5-5.1) L 05/26/23 03:42
Chloride 100 mmol/L (98-107) 05/26/23 03:42
Carbon Dioxide 29 mmol/L (22-30) 05/26/23 03:42
BUN 8 mg/dl (7-17) 05/26/23 03:42
Creatinine 0.3 mg/dL (0.6-1.0) L 05/26/23 03:42
eGFR > 60.00 05/26/23 03:42
Glucose 164 mg/dl (70-99) H 05/26/23 03:42
Calcium 7.7 mg/dl (8.4-10.2) L 05/26/23 03:42
Phosphorus 3.4 mg/dl (2.5-4.5) 05/23/23 04:18
Albumin 4.3 g/dl (3.5-5.0) 05/19/23 17:03
Physical Exam
-
Vital Signs:
Vital Signs
Temp Pulse Resp BP Pulse Ox
100.6 F H 101 12 129/73 100
05/26/23 12:13 05/26/23 14:15 05/26/23 14:15 05/26/23 14:15 05/26/23 14:15
Cardiovascular:: Regular rate and rhythm
Respiratory:: Bilateral: Coarse
Lung Excursion:: Normal
Abdomen:: Distended and Soft
Bowel Sounds:: Decreased
Extremity Edema:: +2: Bilateral:
Lafleur Catheter: Yes
--- NOTE | 2023-05-26 15:14 | W.PN.HOSP.TC ---
Today's Communication/Plan
-
dilt
k repletion
mri
sedation weaning
Assessment / Plan
Assessment / Plan
Gen-intubated, sedated
HEENT-NC, AT, anicteric, clear oral mm
Neck-supple
CV-reg, no M, +S1/S2
Lungs-clear B/L
Abd-soft, NT, ND
Ext-no edema
Musculoskeletal-no cyanosis, clubbing
Skin-warm and dry
#Acute TME
obtunded in the emergency room.
-hyponatremia +/- Seizures cause of AMS
-Currently sedated, intubated.
-wean sedation as tolerated; goal wean off propofol, switch to dexmedetomidine
-Reengage neurology, possible underlying seizures causing altered mental status -EEG unremarkable
� Follow-up MRI brain today
-Repeat EEG today
� Of note patient has been noncompliant with medications and has been taking multiple other homeopathic medications outpatient
#Hyponatremia
� Patient was on multiple homeopathic medications and noncompliant medications�possible contributing factor for hyponatremia
-Nephro on board
- s/p 3% saline, and DDAVP
-Most likely SIADH
-TSH, cortisol WNL
-improving, monitor bmp closely; avoid overcorrection
#Acute hypoxic respiratory failure
#Pneumonia
-intubated for airway protection - although with thick brown secretions
� Sputum culture with MSSA, K. Pneumoniae
-Switch to ASV, wean as tolerated once weaning sedation
-abx
-40% FiO2
-treatment plan as above
-PPI
#Hypotension/shock -not present on admission.
Subsequently developed after intubation and sedation.
-wean sedatives to assess BP response
-wean pressors as tolerated
-no evidence of sepsis at this time
-Maintain MAP goal greater than 65
#Sepsis
-hypothermic, helen 4/9 evening
� Possibly secondary to UTI, E. coli as well as possible tracheobronchitis
-Start abx
-F/u urine cultures as UA pos: Ecoli, Enterococcus
-F/u sputum cultures- MSSA, K. Pneumoniae
#Paroxysmal atrial fibrillation
- Eliquis.
-Uncontrolled
-Cards consulted
-Diltiazem, low-dose/short acting
Hypokalemia -monitor and replete
Hypomagnesemia - monitor and replete
Normocytic anemia -appears chronic. Unclear etiology. Monitor for now.
Essential hypertension -hold antihypertensives with hypotension
DM2 with hyperglycemia -need to clarify home regimen. Check hemoglobin A1c. - 5.7
Depression/anxiety
GI ppx - Start feeding
Full code
Total time spent on today's encounter was 52 minutes which included time spent in counseling the patient/family regarding diagnosis and treatment plan as listed above, goals of care, and symptom management. Case was discussed with nursing staff,
specialists, and care coordinators/case management. All labs and imaging personally reviewed by me. Remainder the time spent in detailed review of previous records, lab data, imaging, and other medical provider documentation.
Anticipated Discharge: > 48 hours
Subjective/Interval History
-
Date of Service: May 26, 2023
afib with rvr when attempting to wean off sedation
Objective Data
-
Labs:
Laboratory Results
05/26/23
03:42
WBC 9.6
Hgb 10.0 L
Hct 28.8 L
Plt Count 234
Sodium 134 L
Potassium 3.4 L
Chloride 100
Carbon Dioxide 29
BUN 8
Creatinine 0.3 L
Glucose 164 H
Calcium 7.7 L
Vital Signs:
Vital Signs
Temp Pulse Resp BP Pulse Ox
100.6 F H 100 10 128/75 100
05/26/23 12:13 05/26/23 15:00 05/26/23 15:00 05/26/23 15:00 05/26/23 15:00
I&O
05/25/23 05/26/23 05/27/23
06:59 06:59 06:59
Intake Total 3591.3 / 3740.3 2948.9 / 3054.9 1224.6 / 1224.6
Output Total 1465 / 1665 2245 / 2245 1165 / 1165
Balance 2126.3 / 2075.3 703.9 / 809.9 59.6 / 59.6
Review of Systems
-
History Source: Patient
All other systems: Not reviewed unless documented
Data Reviewed
-
Diagnostic Radiology: Image personally visualized and interpreted and Report Reviewed by me
CT Scan: Image personally visualized and interpreted and Report Reviewed by me
Labs: Labs Reviewed by me
[2023-05-26] MEDS: CARDIZEM 30 MG PO ×2 (15:35→21:28)
[2023-05-26 17:47] LABS: Glucose - Point of Care 165 mg/dl (70-99)
[2023-05-26] MEDS: SUBLIMAZE 50 MCG IV (19:20)
--- NOTE | 2023-05-26 20:00 | PTCARENOTE ---
Rec`d pt intubated and sedated on mack, Precedex, prop and fent gtts going through RT triple luman PICC. Pt eyes open slightly. when RN flashes light, pt turns head. pt does not track. + gag and cough. SR/ST/AFIB on monitor, HR anywhere from
80s-140s. Restraints in place. #7.5 ETT @21 at lip. vent settings- ASV 80%/ 5 of peep/ 40% O2. POX 100%. Lungs coarse bilaterally. thick carmen secretions through ETT. OG tube with osmo 1.2 @ 30mL/hr and 25mL/hr water flush. Hypoactive bowel sounds. no
BM. Álvarez draining yellow urine. safe environment maintained.
[2023-05-27] VITALS (63 sets, daily range): BP systolic 86–153; BP diastolic 51–97; BMI 22.3
--- NOTE | 2023-05-27 | PTCARENOTE ---
pt reassessed. no changes in pt assessment. gtts titrated per protocol. safe environment maintained.
[2023-05-27] MEDS: ZOSYN 50 IV ×5 (00:06→23:46)
[2023-05-27] MEDS: NOVOLOG FLEXPEN-LOW RESISTANCE 2 UNITS SC ×4 (00:11→23:46)
[2023-05-27 00:22] LABS: Glucose - Point of Care 216 mg/dl (70-99)
[2023-05-27] MEDS: DIPRIVAN 100 IV ×3 (01:17→14:32)
[2023-05-27] MEDS: SUBLIMAZE 100 IV ×3 (03:31→17:34)
[2023-05-27] MEDS: PRECEDEX 100 IV ×4 (04:04→19:24)
[2023-05-27 04:10] LABS: Blood Urea Nitrogen 15 mg/dl (7-17); Calcium 8.4 mg/dl (8.4-10.2); Carbon Dioxide 28 mmol/L (22-30); Chloride 102 mmol/L (98-107); Estimated Creatinine Clearance 68 ml/min; Glucose 176 mg/dl (70-99); Magnesium 1.8 mg/dl (1.6-2.3); Potassium 4.2 mmol/L (3.5-5.1); Sodium 134 mmol/L (135-145); Triglycerides 62 mg/dl (10-149); eGFR > 60.00
[2023-05-27 05:08] LABS: B.E. 2.7 mmol/L; HCO3 26.1 mmol/L (21-28); PCO2 35 mmHg (32-35); PO2 163 mmHg (83-108); pH 7.48 (7.35-7.45)
[2023-05-27] MEDS: NOVOLOG FLEXPEN-LOW RESISTANCE 1 UNITS SC (05:22)
[2023-05-27 05:33] LABS: Glucose - Point of Care 197 mg/dl (70-99)
--- NOTE | 2023-05-27 07:09 | W.PN.INTV ---
Today's Communication / Plan
Recommendations
Continue efforts at ventilator wean
Continue calcium channel sofiya therapy
Maintain ASV, CPAP when able
Continue Zosyn therapy
Will repeat sputum culture, urine culture
Assessment
-
67-year-old woman with past medical history significant for atrial fibrillation on anticoagulation, hypertension, diabetes, depression/anxiety who came to the hospital complaining of vomiting and constipation. Became obtunded. Found to have severe
hyponatremia. Subsequently developed seizures. Required intubation for airway protection. Transferred to the critical care unit for further care.
Toxic metabolic encephalopathy
Seizures: Likely secondary to electrolyte/metabolic derangements-required intubation and mechanical ventilation for airway protection 05/19/2023
Negative UDS/negative alcohol level
CT head negative
Life-threatening severe hyponatremia
Hypokalemia
? GI alhzy-dwdajs-azjfuf emesis versus swallowed old blood from tongue bite.
Intermittent atrial tachycardia
Conditions present prior admission:
Paroxysmal atrial fibrillation-on Eliquis
Hypertension
Type 2 diabetes
Depression/anxiety
Unclear compliance-Per her friend apparently she was treating herself holistically.
Assessment and plan:
Patient is critically ill, intubated on mechanical ventilation.
Unfortunately, she is not tolerating weaning of propofol. When awake, she sits up, posterior ET tube, does not follow commands. She was off propofol on Precedex when I witnessed this
During SBT today, heart rate went to the 150s to 200s
Chest x-ray 05/24 with bibasilar atelectasis remains on Zosyn
Moving forward
Continue with mechanical ventilation
Maintain ASV 80% /40%/5
Transition to CPAP as able, limited by atrial tachycardia during wean
ABG 7.48/35/163
Chest x-ray with appropriate ET tube, no obvious infiltrate
Unfortunately, not awake enough for weaning
Becomes severely agitated, tachycardic in the 160s
Continue with propofol/fentanyl
Resume sedation vacation and weaning attempt as able
May require rate control and/our cardiology evaluation
Restarted diltiazem 05/25, short acting and reassess, following hemodynamics
If continues to have episodic atrial tachycardia in the 150s to 200s, may require cardiology evaluation
Urine culture positive for E. coli, sputum culture positive for Klebsiella
Continue antibiotics, Zosyn continues
MRSA screen negative, vancomycin discontinued
Would like to wean sedation to assess neurological status
Unfortunately agitation continues to be an issue
When agitated, does not follow commands, becomes tachycardic in the 160s
Continue with propofol/fentanyl, daily wean as able
Neurology following
EEG negative, repeat EEG unremarkable
Eventual repeat neuro imaging
Hyponatremia has improved
Seizure at time of presentation in ED noted
Poor prognostic factor
Nephrology following, sodium level now normal
Tolerating tube feeds
No further seizures.
Suspect due to severe hyponatremia
No indication for antiseizure medications
Continue with frequent neurological checks
neurology following, EEG negative
Unfortunately when sedation is weaned, patient is not following commands despite agitation
Await eventual brain MRI, this has been discontinued. Patient has significant hardware, details unclear
Continue PPI therapy
Continue to follow H&H
Continue tube feeds
OG tube in place.
Replete electrolytes
Insulin sliding scale Target blood sugar 140-180 patient was not taking any medications in the outpatient setting.
Head of bed elevation
Aspiration precautions
DVT prophylaxis: Patient on Eliquis
GI prophylaxis: Protonix
Updated friend at bedside Bridgette
There is no family, no POA
Friend will be meeting with patient's railway yard assistant. Documents will be provided
-
Critical care statement: A total of 32 minutes of critical care time was provided for this patient today. This includes management of unstable vital signs, evaluation of the patient at bedside, reviewing the patient's pertinent medical records
including ventilator settings, arterial blood gases, radiographs, microbiology, laboratory evaluations and discussion with primary team, critical care nursing, and respiratory therapy.
Subjective Dataa
Subjective Data
Date of Service:
Date of Service: May 27, 2023
Subjective:
Patient remains critically ill, ventilator dependent. Episodic tachycardia in the 150s noted, labile blood pressures noted. Unfortunate was not awakens, does not follow commands
Objective Data
Data Reviewed
Vital Signs / I&O / Oxygen:
Vital Signs
Temp Pulse Resp BP Pulse Ox
98.6 F 85 11 112/67 100
05/26/23 19:39 05/27/23 06:00 05/27/23 06:00 05/27/23 06:00 05/27/23 06:00
Intake and Output
05/26/23 05/27/23 05/28/23
06:59 06:59 06:59
Intake Total 2948.9 / 3054.9 2815.9 / 2815.9
Output Total 2245 / 2245 1940 / 1940
Balance 703.9 / 809.9 875.9 / 875.9
SaO2 [CPAP] 100
SaO2 [ASV] 98
SaO2 [A/C] 100
SaO2 100
Physical Exam
General: Comfortable and Other (PICC line)
HEENT: Normocephalic, Anicteric and Other (Pupils equal and sluggish)
Cardiovascular: S1-S2, Regular Rhythm, Murmur (n), Rub (n) and Peripheral Edema (n)
Respiratory: Wheeze (n), Crackles (n), Rhonchi (n) and Non-Labored Respirations
GI: Soft, Non Distended, Non Tender and Feeding Tube
Neurology: Lethargic (Becomes tachycardic, when weaned, pulling for ET tube during sedation wean. Does not follow commands)
Skin: Cyanosis (n), Jaundice (n) and Rash (n)
Labs/Micro/Reports
Lab Data
05/26/23 03:42
04/14/24 03:42
Laboratory Results
05/27/23
05:03
pH 7.48 H
pCO2 35
pO2 163 H
HCO3 26.1
O2 Delivery Level
Microbiology
05/22/23 20:47 Blood/Venous Blood Culture - Preliminary
No Growth in 4 days- Final report to follow
05/22/23 20:47 Blood/Venous Blood Culture - Preliminary
No Growth in 4 days- Final report to follow
05/22/23 22:02 Urine Urine Culture - Final
Escherichia coli
Enterococcus faecalis
05/22/23 22:02 Sputum Respiratory Culture - Final
S aureus-Methicillin Sensitive
Klebsiella pneumoniae
05/22/23 22:02 Sputum Gram Stain - Final
[2023-05-27] MEDS: ELIQUIS 5 MG TUBE ×2 (07:13→19:24)
[2023-05-27] MEDS: MIRALAX 17 GRAMS TUBE (07:13)
[2023-05-27] MEDS: NEO-SYNEPHRINE 250 IV (07:13)
[2023-05-27] MEDS: CARDIZEM 30 MG PO ×3 (07:13→21:29)
[2023-05-27] MEDS: VENTOLIN NEBULES 2.5 MG INH ×2 (07:42→19:48)
[2023-05-27] MEDS: MUCOMYST 10% 2 ML INH ×2 (07:42→19:47)
--- NOTE | 2023-05-27 08:30 | PTCARENOTE ---
Received pt intubated and sedated on precedex, propofol and fentanyl gtts. Pt. opens eyes briefly but no commands followed or tracking. + gag/cough. Pupils 4mm, sluggish. Restraints in place for safety. #7.5 ETT, 21 at lip. ASV 80%MV, +5, 40%FiO2.
SpO2 99%. Lungs coarse and dim at bases. Suctioned for mod amt thick carmen. SR/ST with PACs vs afib. Neosynephrine gtt decreased to maintain MAP >65. OG tube with osmo @ 30ml/hr and 25ml/hr h20 flush per orders. Placement verified. Hypoactive bowel
sounds. Álvarez draining yellow urine. See I&O. R TL PICC with fentanyl, prop, precedex and mack gtts.
[2023-05-27] MEDS: SENOKOT-S 1 TABLET PO ×2 (11:22→19:24)
[2023-05-27] MEDS: COLACE 100 MG PO ×2 (11:22→19:24)
[2023-05-27 11:51] LABS: Glucose - Point of Care 227 mg/dl (70-99)
--- NOTE | 2023-05-27 12:25 | PTCARENOTE ---
Pt continues to go in/out of afib. BP decreases with afib in 130s. Unable to wean mack at this time due to irreg HR. Friends at bedside and updated with plan
--- NOTE | 2023-05-27 13:22 | W.PN.NEPH.PH ---
Today's Communication / Plan
-
- CTM
Assessment/Plan
-
IMP:
Acute TME
Profound life threatening hyponatremia -sodium 107
Hypokalemia
Normocytic anemia
Paroxysmal atrial fibrillation
Essential hypertension
DM2 with hyperglycemia
Depression/anxiety
PLan:
A/w constipation and vomiting in ER, later became obtunded with SZ, sodium 107
Severe life threatening hyponatremia-SIADH, U osmo high at 536 high ADH stimuli from GI issues? vs holistic meds
sodium so far appropriately improved with goal of 6-8meq/day
sodium now at 134 no frequent labs needed since risk of CPM low at this level
TSH and cortisol were ok
wean pressors to keep MAP>65
VDRF to protect airway, neuro follows for SZ
monitor h/h-stable, had hematemesis in ER prior to SZ
labile BPs and HR no clear etiology , neuro wants MRI but pt not stable to have it, s/p EEG
UTI on abx per primary
poor prognosis, was reviewed with POA on admit
d/w nursing
-
-
Date of Service: May 27, 2023
CC / HPI / ROS
-
Chief Complaint:
hyponatremia-life threatening
History of Present Illness:
Na at 134 this am
remains on pressors for hypotension
febrile, non oliguric with lafleur, UOP variable
off sedation very agitated and labile BPs and HR fluctuations
Review of Systems:
intubated, sedated
pt opens eyes but does not respond
Labs
-
Labs:
WBC 9.6 10^3/uL (4.8-10.8) 05/26/23 03:42
RBC 3.24 10^6/uL (4.20-5.40) L 05/26/23 03:42
Hgb 10.0 g/dL (12.0-16.0) L 05/26/23 03:42
Hct 28.8 % (37.0-47.0) L 05/26/23 03:42
Plt Count 234 10^3/uL (130-400) 05/26/23 03:42
Sodium 134 mmol/L (135-145) L 05/27/23 03:42
Potassium 4.2 mmol/L (3.5-5.1) 05/27/23 03:42
Chloride 102 mmol/L (98-107) 05/27/23 03:42
Carbon Dioxide 28 mmol/L (22-30) 05/27/23 03:42
BUN 15 mg/dl (7-17) 05/27/23 03:42
Creatinine 0.3 mg/dL (0.6-1.0) L 05/27/23 03:42
eGFR > 60.00 05/27/23 03:42
Glucose 176 mg/dl (70-99) H 05/27/23 03:42
Calcium 8.4 mg/dl (8.4-10.2) 05/27/23 03:42
Phosphorus 3.4 mg/dl (2.5-4.5) 05/23/23 04:18
Albumin 4.3 g/dl (3.5-5.0) 05/19/23 17:03
Physical Exam
-
Vital Signs:
Vital Signs
Temp Pulse Resp BP Pulse Ox
100.3 F 119 16 112/67 100
05/27/23 12:18 05/27/23 07:51 05/27/23 07:51 05/27/23 06:00 05/27/23 12:00
Cardiovascular:: Regular rate and rhythm
Respiratory:: Bilateral: Coarse
Lung Excursion:: Normal
Abdomen:: Nontender and Soft
Bowel Sounds:: Normal
Extremity Edema:: None: Bilateral:
Lafleur Catheter: No
--- NOTE | 2023-05-27 13:41 | W.PN.HOSP.TC ---
Today's Communication/Plan
-
once again attempt weaning propofol
monitor hr while weaning sedation - may need cards assistance if continued to have rvr
abx
Assessment / Plan
Assessment / Plan
Gen-intubated, sedated
HEENT-NC, AT, anicteric, clear oral mm
Neck-supple
CV-reg, no M, +S1/S2
Lungs-clear B/L
Abd-soft, NT, ND
Ext-no edema
Musculoskeletal-no cyanosis, clubbing
Skin-warm and dry
#Acute TME
obtunded in the emergency room.
-hyponatremia +/- Seizures cause of AMS
-Currently sedated, intubated.
-wean sedation as tolerated; goal wean off propofol, switch to dexmedetomidine
-Reengage neurology, possible underlying seizures causing altered mental status -EEG unremarkable
� defer MRI as has possible nails - may perform once extubated or able to retrieve more info
-EEG
� Of note patient has been noncompliant with medications and has been taking multiple other homeopathic medications outpatient
#Hyponatremia
� Patient was on multiple homeopathic medications and noncompliant medications�possible contributing factor for hyponatremia; SIADH
-Nephro on board
- s/p 3% saline, and DDAVP
-Most likely SIADH
-TSH, cortisol WNL
-improving, monitor bmp closely; avoid overcorrection
#Acute hypoxic respiratory failure
#Pneumonia
-intubated for airway protection - although with thick brown secretions
� Sputum culture with MSSA, K. Pneumoniae
-Switch to ASV, wean as tolerated once weaning sedation
-abx
-40% FiO2
-treatment plan as above
-PPI
#Hypotension/shock -not present on admission.
Subsequently developed after intubation and sedation.
-wean sedatives to assess BP response
-wean pressors as tolerated
-no evidence of sepsis at this time
-Maintain MAP goal greater than 65
#Sepsis
-hypothermic, helen 05/21 evening
� Possibly secondary to UTI, E. coli as well as possible tracheobronchitis
-Start abx
-F/u urine cultures as UA pos: Ecoli, Enterococcus
-F/u sputum cultures- MSSA, K. Pneumoniae
#Paroxysmal atrial fibrillation
- Eliquis.
-Uncontrolled
-Cards consulted
-Diltiazem, low-dose/short acting
-if continued to be uncontrolled (carlos upon weaning sedation)- consult cards
Hypokalemia -monitor and replete
Hypomagnesemia - monitor and replete
Normocytic anemia -appears chronic. Unclear etiology. Monitor for now.
Essential hypertension -hold antihypertensives with hypotension
DM2 with hyperglycemia -need to clarify home regimen. Check hemoglobin A1c. - 5.7
Depression/anxiety
GI ppx - Start feeding
Full code
Total time spent on today's encounter was 53 minutes which included time spent in counseling the patient/family regarding diagnosis and treatment plan as listed above, goals of care, and symptom management. Case was discussed with nursing staff,
specialists, and care coordinators/case management. All labs and imaging personally reviewed by me. Remainder the time spent in detailed review of previous records, lab data, imaging, and other medical provider documentation.
Anticipated Discharge: > 48 hours
Subjective/Interval History
-
Date of Service: May 27, 2023
attempt to wean sedation again today
Objective Data
-
Labs:
Laboratory Results
05/27/23 05/27/23
03:42 05:03
HCO3 26.1
Sodium 134 L
Potassium 4.2
Chloride 102
Carbon Dioxide 28
BUN 15
Creatinine 0.3 L
Glucose 176 H
Calcium 8.4
Vital Signs:
Vital Signs
Temp Pulse Resp BP Pulse Ox
100.3 F 119 16 112/67 100
05/27/23 12:18 05/27/23 07:51 05/27/23 07:51 05/27/23 06:00 05/27/23 12:00
I&O
05/26/23 05/27/23 05/28/23
06:59 06:59 06:59
Intake Total 2948.9 / 3054.9 2815.9 / 2926.3 801.4 / 801.4
Output Total 2245 / 2245 1940 / 2185 840 / 840
Balance 703.9 / 809.9 875.9 / 741.3 -38.6 / -38.6
Review of Systems
-
History Source: Patient
All other systems: Not reviewed unless documented
Physical Exam
-
General: Well Developed, Well Nourished and No Apparent Distress
HEENT: Normocephalic, Atraumatic and Other (clean based oral ulcer on side of tongue)
Respiratory: Clear to Auscultation and Other (Intubated); Negative Wheezes or Rhonchi
Cardiac: Regular Rhythm and S1/S2; Negative Murmur
GI: Soft, Nontender, Nondistended and Normal Bowel Sounds
Musculoskeletal: No Clubbing, No Cyanosis and No Edema
Skin: Warm
Neuro: Awake
Psych: Calm
Data Reviewed
-
Diagnostic Radiology: Image personally visualized and interpreted and Report Reviewed by me
CT Scan: Image personally visualized and interpreted and Report Reviewed by me
Labs: Labs Reviewed by me
--- NOTE | 2023-05-27 16:10 | PTCARENOTE ---
Assessment unchanged. Currently in sinus rhythm and MAP77.
[2023-05-27 17:44] LABS: Glucose - Point of Care 201 mg/dl (70-99)
--- NOTE | 2023-05-27 20:00 | PTCARENOTE ---
Received pt intubated and sedated on precedex, propofol and fentanyl gtts. Pt. opens eyes briefly but no commands followed or tracking. + gag/cough. Pupils 3mm, sluggish. Restraints in place for safety. #7.5 ETT, 21 at lip, moved to center. ASV
80%MV, +5, 40%fio2. Pulseox 100%. Lungs coarse with rhonchi. SR/ST HR 80s-100s. On mack gtt on to maintain MAP >65. Afebrile. OG tube with osmo @ 30ml/hr and 25ml/hr h20 flush per orders. Placement verified. Hypoactive bowel sounds. Álvarez draining
yellow urine. See I&O. R TL PICC with fentanyl, prop, precedex and mack gtts. Monitoring, turning q2.
[2023-05-27] MEDS: NSS (PRESERVATIVE FREE) 8 ML IV (21:35)
[2023-05-27] MEDS: PEPCID 20 MG IV (21:35)
[2023-05-27] MEDS: SUBLIMAZE 50 MCG IV (22:49)
[2023-05-27 23:57] LABS: Glucose - Point of Care 222 mg/dl (70-99)
[2023-05-28] VITALS (55 sets, daily range): BP systolic 81–152; BP diastolic 43–78; BMI 21.9
[2023-05-28] MEDS: SUBLIMAZE 50 MCG IV ×2 (00:18→04:20)
[2023-05-28] MEDS: DIPRIVAN 100 IV (00:20)
[2023-05-28] MEDS: PRECEDEX 100 IV ×4 (00:20→17:06)
--- NOTE | 2023-05-28 00:34 | PTCARENOTE ---
Pt. more agitated over the last 2 hours. Biting ETT, pulling at restraints, shaking head. CPOT =6, RASS +1 to +2. Fentanyl boluses given - see APR. Propofol, precedex and fentanyl gtts all increased as needed per protocol. Iván off for a brief time
but now back on for MAP<65. Pt. did follow simple commands of squeezing hands and wiggling toes while awake but did not track. HR 110s while agitated. Pt. now more calm, HR 70s. Monitoring
[2023-05-28] MEDS: SUBLIMAZE 100 IV (03:13)
[2023-05-28 03:47] LABS: Hemoglobin 8.8 g/dL (12.0-16.0); Mean Corp Hgb Conc. 35.2 g/dL (33.0-37.0); Mean Platelet Volume 8.9 fL (7.4-10.4); Platelet Count 233 10^3/uL (130-400); Red Blood Cell Count 2.84 10^6/uL (4.20-5.40); Red Cell Dist. Width 14.5 % (11.5-14.5); White Blood Cell Count 5.3 10^3/uL (4.8-10.8)
[2023-05-28 04:10] LABS: Blood Urea Nitrogen 15 mg/dl (7-17); Calcium 7.7 mg/dl (8.4-10.2); Carbon Dioxide 25 mmol/L (22-30); Chloride 105 mmol/L (98-107); Estimated Creatinine Clearance 68 ml/min; Glucose 175 mg/dl (70-99); Potassium 3.5 mmol/L (3.5-5.1); Sodium 137 mmol/L (135-145); Triglycerides 273 mg/dl (10-149); eGFR > 60.00
[2023-05-28 04:48] LABS: B.E. 2.5 mmol/L; HCO3 26.2 mmol/L (21-28); O2 Saturation % 99.8 % (94-98); PCO2 36 mmHg (32-35); PO2 161 mmHg (83-108); pH 7.47 (7.35-7.45)
[2023-05-28 04:49] LABS: O2 Therapy VENT
--- NOTE | 2023-05-28 05:15 | PTCARENOTE ---
Pt. reassessed. On and off low dose mack gtt through the night. Remained NSR, HR 70s. Afebrile. Bed bath given.
[2023-05-28] MEDS: ZOSYN 50 IV ×4 (05:27→23:22)
[2023-05-28] MEDS: NOVOLOG FLEXPEN-LOW RESISTANCE 1 UNITS SC ×2 (05:28→17:34)
[2023-05-28 05:38] LABS: Glucose - Point of Care 191 mg/dl (70-99)
--- NOTE | 2023-05-28 07:07 | W.PN.INTV ---
Today's Communication / Plan
Recommendations
O2
Asp precs
Zosyn
Dexmedetomidine
Assessment
-
67-year-old woman with past medical history significant for atrial fibrillation on anticoagulation, hypertension, diabetes, depression/anxiety who came to the hospital complaining of vomiting and constipation. Became obtunded. Found to have severe
hyponatremia. Subsequently developed seizures. Required intubation for airway protection. Transferred to the critical care unit for further care.
Toxic metabolic encephalopathy
Seizures: Likely secondary to electrolyte/metabolic derangements-required intubation and mechanical ventilation for airway protection 05/19/2023
Negative UDS/negative alcohol level
CT head negative
Life-threatening severe hyponatremia
Hypokalemia
? GI nbrff-bykfyx-sjqhnd emesis versus swallowed old blood from tongue bite.
Intermittent atrial tachycardia
Conditions present prior admission:
Paroxysmal atrial fibrillation-on Eliquis
Hypertension
Type 2 diabetes
Depression/anxiety
Unclear compliance-Per her friend apparently she was treating herself holistically.
Assessment and plan:
On Adaptive Support Ventilation
Sedation holiday from propofol this morning, kept on dexmedetomidine due to reported significant anxiety and agitation
Progressed well on SBT today, no hemodynamic instability
Extubated to O2 NC with no issue on 05-27
Keep asp precs
Chest x-ray with appropriate ET tube, no obvious infiltrate, RUE PICC
On enteral diltiazem
If recurrent episodic atrial tachycardia in the 150s to 200s, may require cardiology evaluation
Urine culture positive for E. coli/ E faecalis
Sputum culture positive for Klebsiella pn and MSSA
Blood cx NTD
Continue antibiotics, Zosyn
MRSA screen negative, vancomycin discontinued
Weaning phenylephrine, suspected hypotension in part related to sedation
Neurology following
EEG negative, repeat EEG unremarkable
Eventual repeat neuro imaging
Hyponatremia has resolved
Seizure at time of presentation in ED noted
Poor prognostic factor
Nephrology following, sodium level now normal
Tolerating tube feeds (OGT removed 05-27 upon extubation)
No further seizures, likely due to severe hyponatremia
EEG negative: no indication for a-sz meds
Brain MRI ordered, reportedly with metallic hardware in ENRIQUE
Continue PPI therapy
Continue to follow H&H
Replete electrolytes
Insulin sliding scale Target blood sugar 140-180 patient was not taking any medications in the outpatient setting.
DVT prophylaxis: Eliquis (h/o AFib)
GI prophylaxis: Protonix
Noted reported medical noncompliance due to her preference for holistic medicine
Full code status
There is no family, no POA. Friend Bridgette visits (she will be meeting with patient's gardener)
Critical care time: 35 min
Subjective Dataa
Subjective Data
Date of Service:
Date of Service: May 28, 2023
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
Subjective:
No major events reported overnight
Reported intermittent anxiety and agitation in spite of sedation
Respiratory singleton, continues on adaptive support ventilation
Started weaning trial this morning, progressing well, still on dexmedetomidine but able to follow few simple commands
Review of Systems
General: Other (On dexmedetomidine, able to follow few simple commands and doing well on mechanical ventilation weaning)
Objective Data
Data Reviewed
Vital Signs / I&O / Oxygen:
Vital Signs
Temp Pulse Resp BP Pulse Ox
99.3 F 65 13 133/67 100
05/28/23 03:22 05/28/23 06:30 05/28/23 06:30 05/28/23 06:30 05/28/23 06:30
Intake and Output
05/27/23 05/28/23 05/29/23
06:59 06:59 06:59
Intake Total 2815.9 / 2926.3 2675.4 / 2675.4
Output Total 1940 / 2185 2355 / 2355
Balance 875.9 / 741.3 320.4 / 320.4
SaO2 [CPAP] 100
SaO2 [ASV] 99
SaO2 [A/C] 100
SaO2 100
Physical Exam
General: Comfortable and Other (PICC line)
HEENT: Normocephalic, Anicteric, Moist Mucous Membranes, Other (Pupils equal and sluggish) and Other (CODI)
Cardiovascular: S1-S2, Regular Rhythm, Murmur (n), Rub (n) and Peripheral Edema (n)
Respiratory: Wheeze (n), Crackles (n), Rhonchi (n), Non-Labored Respirations and Stridor (n)
GI: Soft, Non Distended, Non Tender and Feeding Tube (OGT)
Neurology: Other (on dexmedetomidine, able to follow simple commands)
Skin: Cyanosis (n), Jaundice (n) and Rash (n)
Labs/Micro/Reports
Lab Data
05/28/23 03:20
05/28/23 03:20
Laboratory Results
05/28/23
04:33
pH 7.47 H
pCO2 36 H
pO2 161 H
HCO3 26.2
O2 Delivery Level Vent
Microbiology
05/22/23 20:47 Blood/Venous Blood Culture - Final
No Growth - Final Report
05/22/23 20:47 Blood/Venous Blood Culture - Final
No Growth - Final Report
05/27/23 12:05 Tracheal Aspirate Gram Stain - Preliminary
05/22/23 22:02 Urine Urine Culture - Final
Escherichia coli
Enterococcus faecalis
05/22/23 22:02 Sputum Respiratory Culture - Final
S aureus-Methicillin Sensitive
Klebsiella pneumoniae
05/22/23 22:02 Sputum Gram Stain - Final
[2023-05-28] MEDS: MUCOMYST 10% 2 ML INH ×2 (07:36→20:09)
[2023-05-28] MEDS: VENTOLIN NEBULES 2.5 MG INH ×4 (07:36→20:10)
--- NOTE | 2023-05-28 08:00 | PTCARENOTE ---
PT received in bed sedated and intubated,restraints for tube protection, oral care and Álvarez care provided, NSR , +pulses trace edema, #7.5 @ 21 ASV 80% Minvol, 40% FiO2, 5 Peep, O2 100%, diminished with scattered rhonchi, min secretions, OG
placement verified, Osmolite @ 30 ml/hr, H2O flush 25 ml/hr, Álvarez draining dark yellow urine, skin intact, right TLC PICC patent and flushed, see work list for meds and titrations
[2023-05-28] MEDS: NSS (PRESERVATIVE FREE) 8 ML IV (08:04)
[2023-05-28] MEDS: PEPCID 20 MG IV (08:04)
[2023-05-28] MEDS: CARDIZEM 30 MG PO (08:04)
[2023-05-28] MEDS: SENOKOT-S 1 TABLET PO (08:05)
[2023-05-28] MEDS: MIRALAX 17 GRAMS TUBE (08:06)
[2023-05-28] MEDS: COLACE 100 MG PO (08:06)
[2023-05-28] MEDS: ELIQUIS 5 MG TUBE (08:06)
--- NOTE | 2023-05-28 08:59 | W.PN.NEPH.PH ---
Today's Communication / Plan
-
follow sodium
Assessment/Plan
-
IMP:
Acute TME
Profound life threatening hyponatremia -sodium 107
Hypokalemia
Normocytic anemia
Paroxysmal atrial fibrillation
Essential hypertension
DM2 with hyperglycemia
Depression/anxiety
PLan:
A/w constipation and vomiting in ER, later became obtunded with SZ, sodium 107
Severe life threatening hyponatremia-SIADH, U osmo high at 536 high ADH stimuli from GI issues? vs holistic meds
sodium so far appropriately improved with goal of 6-8meq/day
sodium now at 137 no frequent labs needed since risk of CPM low at this level
TSH and cortisol were ok
wean pressors to keep MAP>65
VDRF to protect airway, neuro follows for SZ
monitor h/h-stable, had hematemesis in ER prior to SZ
labile BPs and HR no clear etiology , neuro wants MRI but pt not stable to have it, s/p EEG
UTI on abx per primary
poor prognosis, was reviewed with POA on admit
d/w nursing
-
-
Date of Service: May 28, 2023
CC / HPI / ROS
-
Chief Complaint:
hyponatremia-life threatening
History of Present Illness:
Na at 137 this am
remains on pressors for hypotension
febrile, non oliguric with lafleur, UOP variable
off sedation very agitated and labile BPs and HR fluctuations
Review of Systems:
intubated, sedated
weights stable
pt opens eyes but does not respond
Labs
-
Labs:
WBC 5.3 10^3/uL (4.8-10.8) 05/28/23 03:20
RBC 2.84 10^6/uL (4.20-5.40) L 05/28/23 03:20
Hgb 8.8 g/dL (12.0-16.0) L 05/28/23 03:20
Hct 25.0 % (37.0-47.0) L 05/28/23 03:20
Plt Count 233 10^3/uL (130-400) 05/28/23 03:20
Sodium 137 mmol/L (135-145) 05/28/23 03:20
Potassium 3.5 mmol/L (3.5-5.1) 05/28/23 03:20
Chloride 105 mmol/L (98-107) 05/28/23 03:20
Carbon Dioxide 25 mmol/L (22-30) 05/28/23 03:20
BUN 15 mg/dl (7-17) 05/28/23 03:20
Creatinine 0.3 mg/dL (0.6-1.0) L 05/28/23 03:20
eGFR > 60.00 05/28/23 03:20
Glucose 175 mg/dl (70-99) H 05/28/23 03:20
Calcium 7.7 mg/dl (8.4-10.2) L 05/28/23 03:20
Phosphorus 3.4 mg/dl (2.5-4.5) 05/23/23 04:18
Albumin 4.3 g/dl (3.5-5.0) 05/19/23 17:03
Physical Exam
-
Vital Signs:
Vital Signs
Temp Pulse Resp BP Pulse Ox
97.5 F 76 14 95/52 100
05/28/23 07:34 05/28/23 08:30 05/28/23 08:30 05/28/23 08:05 05/28/23 08:30
Cardiovascular:: Regular rate and rhythm
Respiratory:: Bilateral: Coarse
Lung Excursion:: Normal
Abdomen:: Nontender and Soft
Bowel Sounds:: Decreased
Lafleur Catheter: Yes
--- NOTE | 2023-05-28 11:24 | PTCARENOTE ---
PT extubated to NC, PT continues to be drowsy, Prop and Fentanyl off, OG tube had to be removed due to extubation, Tube feeds no on hold
[2023-05-28 11:51] LABS: Glucose - Point of Care 224 mg/dl (70-99)
--- NOTE | 2023-05-28 12:03 | RESPNOTE ---
patient was extubated to 5 liters , end tidal co2 was performed and abg was deferred per dr nelson. end tidal c02 was 33 , patient taking good tidal volumes , [id number] on 5 liters
[2023-05-28] MEDS: NOVOLOG FLEXPEN-LOW RESISTANCE 2 UNITS SC (12:09)
--- NOTE | 2023-05-28 12:14 | PTCARENOTE ---
see work list for titration of Precedex
--- NOTE | 2023-05-28 13:18 | PTCARENOTE ---
PT pulling self up to sitting position in bed, PT does not make eye contact, does not answer your questions, blank stare on face
--- NOTE | 2023-05-28 13:35 | CM ---
Reviewed the chart notes. Patient extubated. Currently on 5L/min O2. CM continues to be available to patient/family and is monitoring medical plan for needs at discharge.
Plan: Discharge plans will depend on the patient's progress.
--- NOTE | 2023-05-28 14:55 | EEG.RPT ---
Electroencephalogram Report
Recording
Date of EE05/25/23
Type of EEG: Routine
Length of EEG recordin minutes
Done with Video Recording: Yes
Patient Status: Inpatient
Hyperventilation Performed: No
Photic Stimulation Performed: Yes
Report
METHODS
A 21 channel digitized electroencephalogram was performed at [facility]. The 10/20 international system of electrode placement was used. In addition to EEG, the patient was monitored for EKG. The duration of the recording was 72 minutes.
BACKGROUND
The background consisted of diffuse severe polymorphic delta range slowing, 1-4Hz.
PHOTIC STIMULATION
Photic stimulation using a step-singleton increase in photic frequency varying from 1-31 Hertz resulted in no driving responses but no appearance of abnormal activity beyond the previously established background.
ABNORMAL EEG ACTIVITY
This EEG is abnormal due to the presence of diffuse severe polymorphic delta range slowing, 1-4Hz.
CLINICAL EVENTS
None
INTERPRETATION AND CLINICAL CORRELATION
This EEG is abnormal due to the presence of diffuse severe polymorphic delta range slowing, 1-4Hz. The study is consistent with moderate to severe diffuse cerebral dysfunction, nonspecific in etiology; no clear seizure activity was noted.
--- NOTE | 2023-05-28 16:40 | PTCARENOTE ---
PT received full linen change, full CHG bath and oral care, PT is AAOx3, small BM
[2023-05-28 17:32] LABS: Glucose - Point of Care 198 mg/dl (70-99)
[2023-05-28] MEDS: CARDIZEM PO (17:32)
[2023-05-28] MEDS: ELIQUIS TUBE (17:33)
[2023-05-28] MEDS: SENOKOT-S PO (17:33)
[2023-05-28] MEDS: COLACE PO (17:33)
--- NOTE | 2023-05-28 17:46 | W.PN.HOSP.TC ---
Today's Communication/Plan
-
continue wean off pressors as possible
continue vent weaning per private eye
maintain on abx
Assessment / Plan
Assessment / Plan
# Acute TME - ongoing
-hyponatremia +/- Seizures cause of AMS
-Currently sedated, intubated.
-MRI brain when able to tolerate
-EEG report reviewed
-Sedation and vent weaning per private eye
# Severe hyponatremia
-Admission blood sugar level of 107, likely causing seizures
- s/p 3% saline, and DDAVP
-Most likely SIADH
-TSH, cortisol WNL
-Sodium levels normalized
#Acute hypoxic respiratory failure
#Vent dependent respiratory failure
# MSSA/Klebsiella pneumonia
# Sepsis and septic shock -not present on admission
-Sputum culture with MSSA, K. Pneumoniae
-Urine culture growing E. coli and Enterococcus
-Vent weaning remains difficult
-Maintain on Zosyn based on susceptibility review
-Continue vent weaning as possible
-Continue weaning pressors off
#Paroxysmal atrial fibrillation
-On short acting diltiazem with holding parameters
-Currently requiring vasopressors and if have persistent RVR will require amiodarone
#Hypokalemia
-monitor and replete
#Hypomagnesemia
- monitor and replete
# Normocytic anemia
-appears chronic. Unclear etiology. Monitor for now.
Essential hypertension
DM2 with hyperglycemia - hemoglobin A1c. - 5.7
Depression/anxiety
GI ppx - Start feeding
Full code
Total critical care time 38 mins. Total critical care time documented does not include time spent on separately billed procedures or the services of residents, students, nurses or physician assistants. I personally saw and examined the patient. I
have reviewed all diagnostic interpretations and treatment plans as written. I was present for the jaimes portions of any procedures performed and the inclusive time noted in any critical care statement. Critical care time includes patient management
by me, time spent at the patients bedside, time to review lab and imaging results, discussing patient care, documentation in the medical record, and time spent with the family or caregiver.
Anticipated Discharge: > 48 hours
Subjective/Interval History
-
Date of Service: May 28, 2023
Remains intubated
no reported acute issues overnight
Remains on small dose of vasopressors
Objective Data
-
Vital Signs:
Vital Signs
Temp Pulse Resp BP Pulse Ox
98.7 F 110 11 123/63 100
05/28/23 15:14 05/28/23 17:30 05/28/23 17:30 05/28/23 17:00 05/28/23 17:30
I&O
05/27/23 05/28/23 05/29/23
06:59 06:59 06:59
Intake Total 2815.9 / 2926.3 2675.4 / 2718.9 361.7 / 361.7
Output Total 1940 / 2185 2355 / 2455 880 / 880
Balance 875.9 / 741.3 320.4 / 263.9 -518.3 / -518.3
Review of Systems
-
Unable to obtain full review of systems at this time due to: Acuity and Patient Intubation
Physical Exam
-
General: No Apparent Distress
HEENT: Oxygen (ET tube/on ventilator)
Respiratory: Rhonchi
Cardiac: Regular Rhythm, S1/S2 and Murmur
GI: Soft, Nondistended and Normal Bowel Sounds
Musculoskeletal: No Edema
Neuro: Sedated
--- NOTE | 2023-05-28 19:30 | PTCARENOTE ---
Resumed care of pt this evening. Received pt on precedex gtt infusing at 0.5 mcg/kg/hr via rt PICC central line. Pt is A&Ox3, has a flat affect, and can move all 4 extremities. Pt is in ST on tele monitor, has weak but palpable pedal pulses, and
trace GA edema. Pt on 4L of O2 via nasal cannula satting at 99% pulse ox. Pt has an occasional, productive, moist, and weak cough. Respirations are shallow. On auscultation pt lungs sound coarse, diminished, and rhonchorous TO. Pt also has an
audible inspiratory wheeze. Pt remained NPO due to oral secretions and weakness with swallowing after extubation. Pt has positive BS. Álvarez cath in place draining blood tinged urine. Skin is C/D/I. VSS.
[2023-05-28] MEDS: NOVOLOG FLEXPEN-LOW RESISTANCE SC (23:22)
[2023-05-28 23:32] LABS: Glucose - Point of Care 145 mg/dl (70-99)
[2023-05-29] VITALS (27 sets, daily range): BP systolic 135–166; BP diastolic 69–104; PULSE 107; O2SAT 96; BMI 21.7
--- NOTE | 2023-05-29 | PTCARENOTE ---
Pt resting comfortably at this time. It is slightly difficult to understand pt's speech due to hoarseness and slow speech. After linen change and Q2 turn pt noted she felt winded afterwards. Pt pulse ox while on 4L of O2 remained at 99% during
movement. VSS.
--- NOTE | 2023-05-29 03:17 | PTCARENOTE ---
Precedex gtt tapered to 0.3 mcg/kg/hr per protocol. Rectal temp probe removed due to BM.
[2023-05-29 03:40] LABS: Hematocrit 28.5 % (37.0-47.0); Hemoglobin 9.9 g/dL (12.0-16.0); Mean Corp Hgb Conc. 34.7 g/dL (33.0-37.0); Mean Corpuscular Hgb 30.8 pg (27.0-31.0); Mean Corpuscular Volume 88.8 fL (81.0-99.0); Platelet Count 300 10^3/uL (130-400); Red Blood Cell Count 3.21 10^6/uL (4.20-5.40); Red Cell Dist. Width 14.5 % (11.5-14.5); White Blood Cell Count 7.5 10^3/uL (4.8-10.8)
[2023-05-29 04:10] LABS: Blood Urea Nitrogen 13 mg/dl (7-17); Calcium 8.5 mg/dl (8.4-10.2); Carbon Dioxide 29 mmol/L (22-30); Chloride 104 mmol/L (98-107); Estimated Creatinine Clearance 68 ml/min; Glucose 141 mg/dl (70-99); Potassium 3.2 mmol/L (3.5-5.1); Sodium 140 mmol/L (135-145); eGFR > 60.00
[2023-05-29] MEDS: ZOSYN 50 IV ×4 (05:18→23:25)
[2023-05-29] MEDS: KCL 100 IV (05:21)
[2023-05-29] MEDS: NOVOLOG FLEXPEN-LOW RESISTANCE SC ×3 (05:31→23:25)
[2023-05-29 05:41] LABS: Glucose - Point of Care 145 mg/dl (70-99)
[2023-05-29] MEDS: MUCOMYST 10% 2 ML INH (07:27)
[2023-05-29] MEDS: VENTOLIN NEBULES 2.5 MG INH (07:28)
--- NOTE | 2023-05-29 08:02 | W.PN.INTV ---
Today's Communication / Plan
Recommendations
Asp precs
Rate control
DOAC
NGT
PT/OT
Assessment
-
67-year-old woman with past medical history significant for atrial fibrillation on anticoagulation, hypertension, diabetes, depression/anxiety who came to the hospital complaining of vomiting and constipation. Became obtunded. Found to have severe
hyponatremia. Subsequently developed seizures. Required intubation for airway protection. Transferred to the critical care unit for further care.
Toxic metabolic encephalopathy
Seizures: Likely secondary to electrolyte/metabolic derangements-required intubation and mechanical ventilation for airway protection 05/19/2023
Negative UDS/negative alcohol level
CT head negative
Life-threatening severe hyponatremia
Hypokalemia
? GI [id number] emesis versus swallowed old blood from tongue bite.
Intermittent atrial tachycardia
Conditions present prior admission:
Paroxysmal atrial fibrillation-on Eliquis
Hypertension
Type 2 diabetes
Depression/anxiety
Unclear compliance-Per her friend apparently she was treating herself holistically.
Assessment and plan:
TME/sz requiring intubation for airway protection 05-18
Tolerated Adaptive Support Ventilation
Weaning trial 05-27: sedation holiday but kept on low dose dexmedetomidine due to reported significant anxiety and agitation
Progressed well on SBT, no hemodynamic instability
Extubated to O2 NC with no issue on 05-27, very mild stridor post extubation but in NAD, no drooling, did not require systemic CS
Off O2 since this AM, POx 97%
Keep asp precs
Speech evaluation 05-27: insp stridor, dysphonia, nonproductive cough. Suspected swallow delay, deferred further po trials, rec NPO for now
NGT placed
Chest x-ray with appropriate ET tube, no obvious infiltrate, RUE PICC
On enteral diltiazem, continue
Apixaban for AFib
Urine culture positive for E. coli/ E faecalis, repeat 05-26 NTD
Sputum culture positive for Klebsiella pn and MSSA
Blood cx NTD
Continue antibiotics, Zosyn, now day 6, complete 7 d and stop
MRSA screen negative, vancomycin discontinued
Off phenylephrine since 05-27, suspected hypotension in part related to sedation
Neurology following
EEG negative, repeat EEG unremarkable
Eventual repeat neuro imaging
Hyponatremia has resolved
Seizure at time of presentation in ED noted
Poor prognostic factor
Nephrology following, sodium level now normal
Tolerating tube feeds (OGT removed 05-27 upon extubation)
No further seizures, likely due to severe hyponatremia
EEG negative: no indication for a-sz meds
Brain MRI ordered, reportedly with metallic hardware in ENRIQUE
Continue PPI therapy
Continue to follow H&H
Replete electrolytes
Insulin sliding scale Target blood sugar 140-180 patient was not taking any medications in the outpatient setting.
DVT prophylaxis: Eliquis (h/o AFib)
GI prophylaxis: Protonix
PT/OT
Noted reported medical noncompliance due to her preference for holistic medicine
Full code status
There is no family, no POA. 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
No critical care time charged today
Can transfer to telemetry
Subjective Dataa
Subjective Data
Date of Service:
Date of Service: May 29, 2023
Chief Complaint: [employer] Surf[employer] Follow Up
Subjective:
No events reported overnight
Successfully extubated yesterday. Mild stridor postextubation but no signs of respiratory distress or drooling
More awake this morning, following simple commands
Review of Systems
General: Fever (n) and Satisfactory Appetite
Cardiopulmonary: Dyspnea (mild), Cough (n), Wheezing and Chest Pain
GI: Abdominal Pain, Nausea and Vomiting
Neuro: Weakness
Objective Data
Data Reviewed
Vital Signs / I&O / Oxygen:
Vital Signs
Temp Pulse Resp BP Pulse Ox
99.0 F 102 14 158/96 99
05/29/23 07:56 05/29/23 07:31 05/29/23 07:31 05/29/23 06:00 05/29/23 07:45
Intake and Output
05/28/23 05/29/23 05/30/23
06:59 06:59 06:59
Intake Total 2675.4 / 2718.9 484.5 / 484.5
Output Total 2355 / 2455 2228 / 2228
Balance 320.4 / 263.9 -1743.5 / -1743.5
SaO2 [CPAP] 100
SaO2 [ASV] 100
SaO2 [A/C] 100
SaO2 99
Nasal Cannula flow liters per 1
minute
Physical Exam
General: Comfortable and Other (PICC line)
HEENT: Normocephalic, Anicteric, Moist Mucous Membranes, Other (Pupils equal and sluggish) and Other (CODI)
Cardiovascular: S1-S2, Regular Rhythm, Murmur (n), Rub (n) and Peripheral Edema (n)
Respiratory: Wheeze (n), Crackles (n), Rhonchi (n), Non-Labored Respirations and Stridor (n)
GI: Soft, Non Distended, Non Tender and Feeding Tube (OGT)
Neurology: Awake, Oriented and No Motor Deficits (but weak)
Skin: Cyanosis (n), Jaundice (n) and Rash (n)
Labs/Micro/Reports
Lab Data
05/29/23 03:27
05/29/23 03:27
Microbiology
05/27/23 12:05 Tracheal Aspirate Respiratory Culture - Preliminary
Gram negative bacilli
05/27/23 12:05 Tracheal Aspirate Gram Stain - Preliminary
05/27/23 12:05 Urine Urine Culture - Preliminary
NO GROWTH
05/22/23 20:47 Blood/Venous Blood Culture - Final
No Growth - Final Report
05/22/23 20:47 Blood/Venous Blood Culture - Final
No Growth - Final Report
05/22/23 22:02 Urine Urine Culture - Final
Escherichia coli
Enterococcus faecalis
--- NOTE | 2023-05-29 08:23 | W.PN.HOSP.TC ---
Today's Communication/Plan
-
see note
PT and ST eval
Assessment / Plan
Assessment / Plan
# Acute TME - Improving
-hyponatremia +/- Seizures cause of AMS
-MRI brain when able to tolerate
-EEG report reviewed
-currently extubated and on Precedex for sedation. being weaned off.
-Patient waking up and speaking few words.
# Severe hyponatremia
-Admission blood sugar level of 107, likely causing seizures
- s/p 3% saline, and DDAVP
-Most likely SIADH
-TSH, cortisol WNL
-Sodium levels normalized
-Up-trending sodium today, still in normal range nonetheless. will need ST eval
#Acute hypoxic respiratory failure
#Vent dependent respiratory failure - extubated 05/27
# MSSA/Klebsiella pneumonia
# Sepsis and septic shock -not present on admission
-Sputum culture with MSSA, K. Pneumoniae
-Urine culture growing E. coli and Enterococcus
-Maintain on Zosyn based on susceptibility review
-on o2 through NC 1L , spo2 100%
-minimal inspiratory stridor
#Paroxysmal atrial fibrillation
-On short acting diltiazem with holding parameters
-Currently requiring vasopressors and if have persistent RVR will require amiodarone
#Hypokalemia
-monitor and replete
#Hypomagnesemia
- monitor and replete
# Normocytic anemia
-appears chronic. Unclear etiology. Monitor for now.
Essential hypertension
DM2 with hyperglycemia - hemoglobin A1c. - 5.7
Depression/anxiety
Full code
Total Critical Care Time 38 minutes. I was immediately available to the patient and staff. I personally examined, reviewed labs, diagnostic images/reports, interpretations, treatment plans, discussed patient care with other providers and family
or caregivers (if patient is unable to make decisions), entered orders as appropriate and documented the medical record.
Anticipated Discharge: > 48 hours
Subjective/Interval History
-
Date of Service: May 29, 2023
no issues overnight
Objective Data
-
Labs:
Laboratory Results
05/29/23
03:27
WBC 7.5
Hgb 9.9 L
Hct 28.5 L
Plt Count 300 D
Sodium 140
Potassium 3.2 L
Chloride 104
Carbon Dioxide 29
BUN 13
Creatinine 0.4 L
Glucose 141 H
Calcium 8.5
Vital Signs:
Vital Signs
Temp Pulse Resp BP Pulse Ox
99.0 F 102 14 158/96 99
05/29/23 07:56 05/29/23 07:31 05/29/23 07:31 05/29/23 06:00 05/29/23 07:45
I&O
05/28/23 05/29/23 05/30/23
06:59 06:59 06:59
Intake Total 2675.4 / 2718.9 484.5 / 484.5
Output Total 2355 / 2455 2228 / 2228
Balance 320.4 / 263.9 -1743.5 / -1743.5
Review of Systems
-
Respiratory: Reports No Symptoms
Cardiac: Reports No Symptoms
Abdomen/GI: Reports No Symptoms
Physical Exam
-
General: No Apparent Distress
HEENT: Oxygen (1L on NC)
Respiratory: Rhonchi
Cardiac: Regular Rhythm, S1/S2 and Murmur
GI: Soft, Nondistended and Normal Bowel Sounds
Musculoskeletal: No Edema
Neuro: Awake, Alert and No Motor Deficits
--- NOTE | 2023-05-29 09:13 | W.PN.NEPH.PH ---
Today's Communication / Plan
-
Monitor electrolyte
Assessment/Plan
-
IMP:
Acute TME
Profound life threatening hyponatremia -sodium 107
Hypokalemia
Normocytic anemia
Paroxysmal atrial fibrillation
Essential hypertension
DM2 with hyperglycemia
Depression/anxiety
PLan:
A/w constipation and vomiting in ER, later became obtunded with SZ, sodium 107
Severe life threatening hyponatremia-SIADH, U osmo high at 536 high ADH stimuli from GI issues? vs holistic meds
sodium so far appropriately improved with goal of 6-8meq/day
sodium now at 140 no frequent labs needed since risk of CPM low at this level
Replete potassium
TSH and cortisol were ok
patient extubated and off pressors, speaking
for swallowing evaluation
-
-
Date of Service: May 29, 2023
CC / HPI / ROS
-
Chief Complaint:
hyponatremia-life threatening
History of Present Illness:
Na at 140 this am
extubated and off pressors
non oliguric via lafleur
Review of Systems:
awake and alert
speaking
grossly nonoliguric
Labs
-
Labs:
WBC 7.5 10^3/uL (4.8-10.8) 05/29/23 03:27
RBC 3.21 10^6/uL (4.20-5.40) L 05/29/23 03:27
Hgb 9.9 g/dL (12.0-16.0) L 05/29/23 03:27
Hct 28.5 % (37.0-47.0) L 05/29/23 03:27
Plt Count 300 10^3/uL (130-400) D 05/29/23 03:27
Sodium 140 mmol/L (135-145) 05/29/23 03:27
Potassium 3.2 mmol/L (3.5-5.1) L 05/29/23 03:27
Chloride 104 mmol/L (98-107) 05/29/23 03:27
Carbon Dioxide 29 mmol/L (22-30) 05/29/23 03:27
BUN 13 mg/dl (7-17) 05/29/23 03:27
Creatinine 0.4 mg/dL (0.6-1.0) L 05/29/23 03:27
eGFR > 60.00 05/29/23 03:27
Glucose 141 mg/dl (70-99) H 05/29/23 03:27
Calcium 8.5 mg/dl (8.4-10.2) 05/29/23 03:27
Phosphorus 3.4 mg/dl (2.5-4.5) 05/23/23 04:18
Albumin 4.3 g/dl (3.5-5.0) 05/19/23 17:03
Physical Exam
-
Vital Signs:
Vital Signs
Temp Pulse Resp BP Pulse Ox
99.0 F 102 14 158/96 99
05/29/23 07:56 05/29/23 07:31 05/29/23 07:31 05/29/23 06:00 05/29/23 07:45
Cardiovascular:: Regular rate and rhythm
Respiratory:: Bilateral: Coarse
Lung Excursion:: Normal
Abdomen:: Nontender
Bowel Sounds:: Decreased
Extremity Edema:: None: Bilateral:
Lafleur Catheter: Yes
--- NOTE | 2023-05-29 11:30 | CM ---
Patient seen at bedside, remains in ICU extubated, pending PT/OT assessment. Patient lives alone in a 2 story home. CM will continue to follow for discharge planning needs.
Plan; home with VN vs SNF pending assessment recommendations
[2023-05-29] MEDS: MIRALAX TUBE (11:37)
[2023-05-29] MEDS: COLACE PO ×2 (11:38→20:16)
--- NOTE | 2023-05-29 11:43 | PTCARENOTE ---
Pt received from retail shift leader RN. Ox3, answering questions appropriately, following commands. Pt speaks in a whisper. Breath sounds diminished, audible stridor. Weaned O2 off, RA sat of 95%. Pt frequently incontinent of stool. Álvarez catheter in place
draining clear yellow urine. Call colón within reach. Pt is motivated to participate with PT/OT/ST but tires easily.
[2023-05-29 12:11] LABS: Glucose - Point of Care 149 mg/dl (70-99)
--- NOTE | 2023-05-29 12:31 | PTOTSP ---
ST Evaluation
Oral + suspected pharyngeal dysphagia and dysphonia s/p prolonged intubation ~9 days
Pt received awake/alert at the bedside. She was coughing prior to session. Inspiratory stridor and dysphonia. Cough is wet/weak and non-productive; unable to mobilize secretions to remove by expectoration or oral suction. HOB raised upright for PO
trials of single ice chips. Demo adequate mastication of ice chip, adequate transfers with suspected swallow delay. Swallow appears reduced with multiple swallows triggered for single bolus. There was productive coughing observed following 3rd and
final trial. Further PO trials were deferred.
Recommend
1. Remain NPO with meds via non-oral route. Consider short term enteral access via DHT, per physician
2. Strict aspiration precautions and oral care with suction as needed
3. ARHP - Allow single ice chips sparingly for comfort with RN supervision. Stop if coughing.
4. APPLICATIONS COORDINATOR following
[2023-05-29] MEDS: CARDIZEM 30 MG PO ×2 (15:03→21:12)
[2023-05-29] MEDS: CARDIZEM PO (15:03)
[2023-05-29] MEDS: ELIQUIS TUBE (15:03)
[2023-05-29] MEDS: SENOKOT-S PO ×2 (15:03→20:16)
--- NOTE | 2023-05-29 17:02 | PTCARENOTE ---
PT reassessed. Inspiratory stridor appears to be improving, pt remains on RA. Pt has a harsh, moist cough but does not appear to be able to produce any sputum. L nare DHT placed, will resume tube feeds. Pt continues to be incontinent of soft stool.
Álvarez removed. IV sites intact. Call colón within reach.
[2023-05-29 17:43] LABS: Glucose - Point of Care 152 mg/dl (70-99)
[2023-05-29] MEDS: NOVOLOG FLEXPEN-LOW RESISTANCE 1 UNITS SC (17:56)
[2023-05-29] MEDS: ELIQUIS 5 MG TUBE (21:13)
[2023-05-29 23:33] LABS: Glucose - Point of Care 126 mg/dl (70-99)
[2023-05-30] VITALS (24 sets, daily range): BP systolic 122–165; BP diastolic 58–85; BMI 20.9
[2023-05-30] MEDS: ZOSYN 50 IV (06:58)
[2023-05-30 07:04] LABS: Glucose - Point of Care 152 mg/dl (70-99)
[2023-05-30] MEDS: NOVOLOG FLEXPEN-LOW RESISTANCE 1 UNITS SC ×2 (07:07→17:11)
[2023-05-30 07:15] LABS: Hematocrit 28.5 % (37.0-47.0); Hemoglobin 9.9 g/dL (12.0-16.0); Mean Corp Hgb Conc. 34.7 g/dL (33.0-37.0); Mean Corpuscular Hgb 31.3 pg (27.0-31.0); Mean Corpuscular Volume 90.2 fL (81.0-99.0); Mean Platelet Volume 9.1 fL (7.4-10.4); Platelet Count 373 10^3/uL (130-400); Red Blood Cell Count 3.16 10^6/uL (4.20-5.40); Red Cell Dist. Width 14.1 % (11.5-14.5); White Blood Cell Count 8.7 10^3/uL (4.8-10.8)
[2023-05-30 07:39] LABS: Blood Urea Nitrogen 24 mg/dl (7-17); Calcium 8.6 mg/dl (8.4-10.2); Carbon Dioxide 25 mmol/L (22-30); Chloride 108 mmol/L (98-107); Estimated Creatinine Clearance 68 ml/min; Glucose 172 mg/dl (70-99); Potassium 2.8 mmol/L (3.5-5.1); Sodium 143 mmol/L (135-145); Triglycerides 94 mg/dl (10-149); eGFR > 60.00
[2023-05-30] MEDS: MIRALAX TUBE (08:38)
[2023-05-30] MEDS: ELIQUIS 5 MG TUBE ×2 (08:38→19:46)
[2023-05-30] MEDS: SENOKOT-S PO (08:38)
[2023-05-30] MEDS: CARDIZEM 30 MG PO ×3 (08:38→21:58)
[2023-05-30] MEDS: COLACE PO (08:38)
[2023-05-30 09:24] LABS: Magnesium 2.2 mg/dl (1.6-2.3)
--- NOTE | 2023-05-30 09:42 | PTCARENOTE ---
PT received in bed, PT is drowsy and slow to answer, voice is whisper, NSR with an occasional PVC noted, + pulses trace edema, 4L NC B/L BS are coarse with Insp wheeze noted, abdomen soft NT + BS, incontinent of stool, PT recently straight cath,
will monitor for the urge to void, right Dual PICC patent and flushed, Dobbhoff flushed and patent, Jevity 1.2, increased feed to 20 ml/hr, H2O 25 ml/hr
[2023-05-30] MEDS: KCL ELIXIR 40 MEQ TUBE ×2 (09:55→14:48)
--- NOTE | 2023-05-30 11:07 | PTCARENOTE ---
Bedside swallow done, PT did not pass, continue TF as ordered, occasional ice chips allowed, PT has very flat affect
[2023-05-30] MEDS: NOVOLOG FLEXPEN-LOW RESISTANCE SC (11:55)
[2023-05-30 12:02] LABS: Glucose - Point of Care 143 mg/dl (70-99)
--- NOTE | 2023-05-30 12:14 | PTCARENOTE ---
Assisted PT with 2 OOB, PT has very unsteady gait, minimal effort in helping staff get her OOB, PT is very slow to respond with any questions, PT was incontinent of moderate amount of loose black stool, heme test preformed stool is heme positive
--- NOTE | 2023-05-30 13:27 | W.PN.PUL3 ---
Documented by User: Chuy Mcmillan MD, Resident 05/30/23 13:59
Today's Communication / Plan
-
Antibiotics discontinued
Melena, continue PPI and monitor H&H
Failed video swallow, aspiration precautions
Replete electrolytes
Wean off oxygen as tolerated
Assessment
-
-
67-year-old woman with past medical history significant for atrial fibrillation on anticoagulation, hypertension, diabetes, depression/anxiety who came to the hospital complaining of vomiting and constipation. Became obtunded. Found to have severe
hyponatremia. Subsequently developed seizures. Required intubation for airway protection. Transferred to the critical care unit for further care.
Toxic metabolic encephalopathy
Seizures: Likely secondary to electrolyte/metabolic derangements-required intubation and mechanical ventilation for airway protection 05/19/2023
Negative UDS/negative alcohol level
CT head negative
Life-threatening severe hyponatremia
Hypokalemia
? GI yliqk-pulqcb-mploge emesis versus swallowed old blood from tongue bite.
Melena 05/30/2023
Intermittent atrial tachycardia
Conditions present prior admission:
Paroxysmal atrial fibrillation-on Eliquis
Hypertension
Type 2 diabetes
Depression/anxiety
Unclear compliance-Per her friend apparently she was treating herself holistically.
Assessment and plan:
TME/sz requiring intubation for airway protection 05-18
-Tolerated Adaptive Support Ventilation
-Weaning trial 05-27: sedation holiday but kept on low dose dexmedetomidine due to reported significant anxiety and agitation
Progressed well on SBT, no hemodynamic instability
Extubated to O2 NC with no issue on 05-27, very mild stridor post extubation but in NAD, no drooling, did not require systemic CS
Weaning off Precedex with patient improving clinically and speaking a few words.
On O2 supplementation 4 L NC saturating at 100%.
Chest x-ray with appropriate ET tube, no obvious infiltrate, RUE PICC
Speech evaluation 05-27: insp stridor, dysphonia, nonproductive cough. Suspected swallow delay.
Bedside speech and swallow study 05/30/2023 failed.
Continue TF with NGT. Aspiration precautions
On enteral diltiazem, continue
Apixaban for AFib
Urine culture positive for E. coli/ E faecalis, repeat 05-26 NTD
Sputum culture positive for Klebsiella pn and MSSA
Blood cx NTD
Antibiotics with Zosyn discontinued today, completed 7 days.
MRSA screen negative, vancomycin discontinued
Off phenylephrine since 05-27, suspected hypotension in part related to sedation
Melena.
History of coffee-ground emesis on admission.
Melena 05/30/2023 likely due to upper GI bleed.
Continue PPI and follow H&H.
Will consider endoscopic evaluation with further drop in hemoglobin level.
Neurology following
EEG negative, repeat EEG unremarkable
Eventual repeat neuro imaging
Hyponatremia has resolved
Seizure at time of presentation in ED noted
Poor prognostic factor
Nephrology following, sodium level now normal
Tolerating tube feeds (OGT removed 05-27 upon extubation)
No further seizures, likely due to severe hyponatremia
EEG negative: no indication for a-sz meds
Brain MRI ordered, reportedly with metallic hardware in ENRIQUE
Continue PPI therapy
Continue to follow H&H
Hypokalemia
Replete electrolytes
Insulin sliding scale Target blood sugar 140-180 patient was not taking any medications in the outpatient setting.
DVT prophylaxis: Eliquis (h/o AFib)
GI prophylaxis: Protonix
PT/OT
Noted reported medical noncompliance due to her preference for holistic medicine
Full code status
There is no family, no POA. 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
Subjective Data
-
Date of Service:
Date of Service: May 30, 2023
Subjective:
Overnight, patient maintained on 4 L oxygen NC saturating at 99%. Breath sounds reportedly diminished with audible stridor and weak nonproductive cough. She was subsequently weaned off oxygen and was saturating at 95% and then back on oxygen 4 L
NC saturating at 96%. Patient reported unable to mobilize secretions for expectoration. Left nare DHT placed for tube feeding, patient tolerating.
Review of Systems
General: Fever (n)
Cardiopulmonary: Dyspnea (mild), Cough (n), Wheezing and Chest Pain (Mild)
GI: Abdominal Pain (n), Nausea (n), Vomiting (n), Melena (Incontinent with black stool) and Tube Feeding
Neuro: Headache (n) and Weakness
Genitourinary: Álvarez
Objective Data
Data Reviewed
Vital Signs / I&O / Oxygen:
Vital Signs
Temp Pulse Resp BP Pulse Ox
98.4 F 103 21 143/80 100
05/30/23 11:03 05/30/23 08:38 05/30/23 08:30 05/30/23 08:38 05/30/23 08:30
Intake and Output
05/29/23 05/30/23 05/31/23
06:59 06:59 06:59
Intake Total 484.5 / 484.5 200 / 200 35 / 35
Output Total 2228 / 2278 920 / 920
Balance -1743.5 / -1793.5 -720 / -720 35 / 35
SaO2 [CPAP] 100
SaO2 [ASV] 100
SaO2 [A/C] 100
SaO2 100
Nasal Cannula flow liters per 4
minute
Physical Exam
General: Comfortable and Other (PICC line)
HEENT: Normocephalic, Moist Mucous Membranes, Other (CODI) and Other (P.o. equal and sluggish)
Cardiovascular: S1-S2, Regular Rhythm, Murmur (n), Rub (n) and Peripheral Edema (n)
Respiratory: Wheeze (n), Crackles (n), Non-Labored Respirations and Stridor
GI: Soft, Non Distended, Non Tender, Normal Bowel Sounds and Feeding Tube (OGT)
Neurology: Awake, Oriented and No Motor Deficits (Weak)
Skin: Warm, Cyanosis (n), Jaundice (n) and Rash (n)
Labs/Micro/Reports
Lab Data
05/30/23 07:05
05/30/23 07:05
Microbiology
05/27/23 12:05 Urine Urine Culture - Final
NO GROWTH
05/27/23 12:05 Tracheal Aspirate Respiratory Culture - Final
Klebsiella pneumoniae
05/27/23 12:05 Tracheal Aspirate Gram Stain - Final
05/22/23 20:47 Blood/Venous Blood Culture - Final
No Growth - Final Report
05/22/23 20:47 Blood/Venous Blood Culture - Final
No Growth - Final Report

Documented by User: Pawan North MD 05/30/23 14:52
Today's Communication / Plan
-
Antibiotics discontinued
Melena, continue PPI and monitor H&H
Failed video swallow, aspiration precautions
Replete electrolytes
Wean off oxygen as tolerated
GMF vs telem
Reconsult prn
Assessment
-
-
67-year-old woman with past medical history significant for atrial fibrillation on anticoagulation, hypertension, diabetes, depression/anxiety who came to the hospital complaining of vomiting and constipation. Became obtunded. Found to have severe
hyponatremia. Subsequently developed seizures. Required intubation for airway protection. Transferred to the critical care unit for further care.
Toxic metabolic encephalopathy
Seizures: Likely secondary to electrolyte/metabolic derangements-required intubation and mechanical ventilation for airway protection 05/19/2023
Negative UDS/negative alcohol level
CT head negative
Life-threatening severe hyponatremia
Hypokalemia
? GI zfnen-ffulzr-zsgmbr emesis versus swallowed old blood from tongue bite.
Melena 05/30/2023, heme positive
Intermittent atrial tachycardia
Conditions present prior admission:
Paroxysmal atrial fibrillation-on Eliquis
Hypertension
Type 2 diabetes
Depression/anxiety
Unclear compliance-Per her friend apparently she was treating herself holistically.
Assessment and plan:
TME/sz requiring intubation for airway protection 05-18
-Tolerated Adaptive Support Ventilation
-Weaning trial 05-27: sedation holiday but kept on low dose dexmedetomidine due to reported significant anxiety and agitation
Progressed well on SBT, no hemodynamic instability
Extubated to O2 NC with no issue on 05-27, very mild stridor post extubation but in NAD, no drooling, did not require systemic CS
On O2 supplementation 4 L NC saturating at 100%.
Chest x-ray with appropriate ET tube, no obvious infiltrate, RUE PICC
Speech evaluation 05-27: insp stridor, dysphonia, nonproductive cough. Suspected swallow delay.
Bedside speech and swallow study 05/30/2023: continues with OP dysphagia, OK for occasional ice chips with RN supervision and upright
Continue TF with NGT. Aspiration precautions
Speech continues to follow
On enteral diltiazem, continue
Apixaban for AFib
Urine culture positive for E. coli/ E faecalis, repeat 05-26 NTD
Sputum culture positive for Klebsiella pn and MSSA
Blood cx NTD
Antibiotics with Zosyn discontinued today, completed 7 days.
MRSA screen negative, vancomycin discontinued
Off phenylephrine since 05-27, suspected hypotension in part related to sedation
Melena.
History of coffee-ground emesis on admission, suspected to tongue bite
Melena 05/30/2023, heme positive
Continue PPI and follow H&H.
Hgb at high 8s to high 9s since 05-27, remains hemodyn stable
Neurology following
EEG negative, repeat EEG unremarkable
Eventual repeat neuro imaging
Hyponatremia has resolved
Seizure at time of presentation in ED noted
Poor prognostic factor
Nephrology following, sodium level now normal
Tolerating tube feeds (OGT removed 05-27 upon extubation)
No further seizures, likely due to severe hyponatremia
EEG negative: no indication for a-sz meds
Brain MRI ordered, reportedly with metallic hardware in ENRIQUE
Continue PPI therapy
Continue to follow H&H
Hypokalemia
Replete electrolytes
Insulin sliding scale Target blood sugar 140-180 patient was not taking any medications in the outpatient setting.
DVT prophylaxis: Eliquis (h/o AFib)
GI prophylaxis: Protonix
PT/OT
Noted reported medical noncompliance due to her preference for holistic medicine
Full code status
There is no family, no POA. 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
Stable for transfer to F vs telemetry
Reconsult as needed
ATTENDING PHYSICIAN ATTESTATION:
(Follow-up Visit:)
I personally saw and evaluated the patient along with the FM Resident Dr Mcmillan.
Discussed with Resident and discussed in rounds with MDT.
I agree with Resident�s findings and plan as documented in the resident�s note, which was edited by myself.
Objective Data
Physical Exam
GI: Feeding Tube (DHT)
--- NOTE | 2023-05-30 15:27 | W.PN.NEPH.PH ---
Today's Communication / Plan
-
- sign off
Assessment/Plan
-
IMP:
Acute TME
Profound life threatening hyponatremia -sodium 107
Hypokalemia
Normocytic anemia
Paroxysmal atrial fibrillation
Essential hypertension
DM2 with hyperglycemia
Depression/anxiety
PLan:
A/w constipation and vomiting in ER, later became obtunded with SZ, sodium 107
Severe life threatening hyponatremia-SIADH, U osmo high at 536 high ADH stimuli from GI issues? vs holistic meds
sodium so far appropriately improved with goal of 6-8meq/day
sodium now at 143 no frequent labs needed since risk of CPM low at this level
Replete potassium, patient c/o diarrhea
TSH and cortisol were ok
patient extubated and off pressors, speaking
for swallowing evaluation
Na has been normalized since 05/27. Nephrology will sign off at this time. Please call us back if there are any further questions or concerns
-
-
Date of Service: May 30, 2023
CC / HPI / ROS
-
Chief Complaint:
hyponatremia-life threatening
History of Present Illness:
Na at 143 this am
extubated and off pressors
non oliguric via lafleur
Review of Systems:
awake and alert
speaking
grossly nonoliguric
Labs
-
Labs:
WBC 8.7 10^3/uL (4.8-10.8) 05/30/23 07:05
RBC 3.16 10^6/uL (4.20-5.40) L 05/30/23 07:05
Hgb 9.9 g/dL (12.0-16.0) L 05/30/23 07:05
Hct 28.5 % (37.0-47.0) L 05/30/23 07:05
Plt Count 373 10^3/uL (130-400) D 05/30/23 07:05
Sodium 143 mmol/L (135-145) 05/30/23 07:05
Potassium 2.8 mmol/L (3.5-5.1) L 05/30/23 07:05
Chloride 108 mmol/L (98-107) H 05/30/23 07:05
Carbon Dioxide 25 mmol/L (22-30) 05/30/23 07:05
BUN 24 mg/dl (7-17) H 05/30/23 07:05
Creatinine 0.4 mg/dL (0.6-1.0) L 05/30/23 07:05
eGFR > 60.00 05/30/23 07:05
Glucose 172 mg/dl (70-99) H 05/30/23 07:05
Calcium 8.6 mg/dl (8.4-10.2) 05/30/23 07:05
Phosphorus 3.4 mg/dl (2.5-4.5) 05/23/23 04:18
Albumin 4.3 g/dl (3.5-5.0) 05/19/23 17:03
Physical Exam
-
Vital Signs:
Vital Signs
Temp Pulse Resp BP Pulse Ox
98.4 F 88 21 122/73 100
05/30/23 11:03 05/30/23 14:48 05/30/23 08:30 05/30/23 14:48 05/30/23 08:30
Cardiovascular:: Regular rate and rhythm
Respiratory:: Bilateral: Coarse
Lung Excursion:: Normal
Abdomen:: Nontender and Soft
Bowel Sounds:: Normal
Extremity Edema:: None: Bilateral:
Lafleur Catheter: No
--- NOTE | 2023-05-30 15:50 | CM ---
Patient seen up in chair with patient friend in ICU. Patient with NG tube and O2. Patient seen by PT/OT recommending SNF when medically appropriate. CM will need to review options with patient and friend. CM will continue to follow for discharge
planning needs.
Plan; SNF: watch for further pt/ot needs and patient choice
--- NOTE | 2023-05-30 16:13 | W.PN.HOSP.TC ---
Today's Communication/Plan
-
see note
Assessment / Plan
Assessment / Plan
# Acute TME - Resolved
-hyponatremia +/- Seizures cause of AMS
-MRI brain when able to tolerate
-EEG report reviewed
-Patient mentation back to normal
# Severe hyponatremia
-Admission blood sugar level of 107, likely causing seizures
- s/p 3% saline, and DDAVP
-Most likely SIADH
-TSH, cortisol WNL
-Sodium uptrending. Increasing free water flushes to tube feed.
#Acute hypoxic respiratory failure
#Vent dependent respiratory failure - extubated 05/27
# MSSA/Klebsiella pneumonia
# Sepsis and septic shock -not present on admission
-Sputum culture with MSSA, K. Pneumoniae
-Urine culture growing E. coli and Enterococcus
-Maintain on Zosyn based on susceptibility review
-Continue weaning off oxygen as possible
-Speech therapy evaluation yesterday. On tube feed.
#Paroxysmal atrial fibrillation
-On short acting diltiazem with holding parameters
-Currently requiring vasopressors and if have persistent RVR will require amiodarone
#Hypokalemia
-Replace with 80 mEq of potassium today
#Hypomagnesemia
- monitor and replete
# Normocytic anemia
-appears chronic. Unclear etiology. Monitor for now.
Essential hypertension
DM2 with hyperglycemia - hemoglobin A1c. - 5.7
Depression/anxiety
Full code
Transfer to IMU
PT/OT as tolerated
Anticipated Discharge: > 48 hours
Subjective/Interval History
-
Date of Service: May 30, 2023
Patient remains dysphonic although was coming back slowly
Feeling speech therapy evaluation yesterday on tube feed
Remains on oxygen through nasal cannula
Afebrile in night
Objective Data
-
Labs:
Laboratory Results
05/30/23
07:05
WBC 8.7
Hgb 9.9 L
Hct 28.5 L
Plt Count 373 D
Sodium 143
Potassium 2.8 L
Chloride 108 H
Carbon Dioxide 25
BUN 24 H
Creatinine 0.4 L
Glucose 172 H
Calcium 8.6
Vital Signs:
Vital Signs
Temp Pulse Resp BP Pulse Ox
98.4 F 88 21 122/73 100
05/30/23 11:03 05/30/23 14:48 05/30/23 08:30 05/30/23 14:48 05/30/23 08:30
I&O
05/29/23 05/30/23 05/31/23
06:59 06:59 06:59
Intake Total 484.5 / 484.5 200 / 200 305 / 305
Output Total 2228 / 2278 920 / 920
Balance -1743.5 / -1793.5 -720 / -720 305 / 305
Review of Systems
-
Respiratory: Reports No Symptoms
Cardiac: Reports No Symptoms
Abdomen/GI: Reports No Symptoms
Physical Exam
-
General: No Apparent Distress
HEENT: Oxygen (1L on NC)
Respiratory: Rhonchi
Cardiac: Regular Rhythm, S1/S2 and Murmur
GI: Soft, Nondistended and Normal Bowel Sounds
Musculoskeletal: No Edema
Neuro: Awake, Alert and No Motor Deficits
--- NOTE | 2023-05-30 16:59 | PTCARENOTE ---
PT assisted back to bed, PT does not use much effort to help self, PT incontinent of stool, PT received full CHG bath, linen change, PT bladder scanned for 484 ml of urine, using sterile technique, PT straight cath for 500 ml of dark yellow urine,
tube feeds increased to 30 ml/hr
[2023-05-30 17:22] LABS: Glucose - Point of Care 173 mg/dl (70-99)
[2023-05-31] VITALS (12 sets, daily range): BP systolic 125–160; BP diastolic 61–90; PULSE 87–107; O2SAT 96
[2023-05-31] MEDS: NOVOLOG FLEXPEN-LOW RESISTANCE 2 UNITS SC ×3 (00:13→12:06)
[2023-05-31 00:23] LABS: Glucose - Point of Care 202 mg/dl (70-99)
--- NOTE | 2023-05-31 04:47 | PTCARENOTE ---
Pt found with dobhoff out. Pt states that she is done being poked and prodded. House [employer] made aware. Will pass along to next shift.
--- NOTE | 2023-05-31 04:53 | PTCARENOTE ---
Pt received with O2 sat 88-90% on room air . Placed on O2 2l NC and sats >95%
--- NOTE | 2023-05-31 04:54 | PTCARENOTE ---
Bladder scan reveals only 200ml
[2023-05-31 04:57] LABS: Hematocrit 28.6 % (37.0-47.0); Hemoglobin 9.4 g/dL (12.0-16.0); Mean Corp Hgb Conc. 32.9 g/dL (33.0-37.0); Mean Corpuscular Hgb 30.4 pg (27.0-31.0); Mean Corpuscular Volume 92.6 fL (81.0-99.0); Mean Platelet Volume 9.6 fL (7.4-10.4); Platelet Count 398 10^3/uL (130-400); Red Blood Cell Count 3.09 10^6/uL (4.20-5.40); Red Cell Dist. Width 14.3 % (11.5-14.5); White Blood Cell Count 5.6 10^3/uL (4.8-10.8)
[2023-05-31 05:21] LABS: Blood Urea Nitrogen 24 mg/dl (7-17); Calcium 8.7 mg/dl (8.4-10.2); Carbon Dioxide 25 mmol/L (22-30); Chloride 111 mmol/L (98-107); Estimated Creatinine Clearance 68 ml/min; Glucose 214 mg/dl (70-99); Potassium 3.6 mmol/L (3.5-5.1); Sodium 145 mmol/L (135-145); eGFR > 60.00
[2023-05-31 06:06] LABS: Glucose - Point of Care 229 mg/dl (70-99)
[2023-05-31] MEDS: CARDIZEM 30 MG PO ×3 (09:06→21:35)
[2023-05-31] MEDS: ELIQUIS 5 MG TUBE ×2 (09:07→21:00)
--- NOTE | 2023-05-31 09:19 | W.PN.HOSP.TC ---
Today's Communication/Plan
-
transfer tele
vse
start d5w
pt/ot eval
Assessment / Plan
Assessment / Plan
# Acute TME - Resolved
-hyponatremia +/- Seizures cause of AMS
-MRI brain when able to tolerate
-EEG report reviewed
-Patient mentation back to normal
# Severe hyponatremia
-Admission blood sugar level of 107, likely causing seizures
- s/p 3% saline, and DDAVP
-Most likely SIADH
-TSH, cortisol WNL
-Sodium uptrending. Increased FWF yesterday but pulled out Dobhoff in night.
-Start on D5W infusion - recheck BMP in evening
-ST cleared for pills, VSE ordered per ST recommendation
#Acute hypoxic respiratory failure
#Vent dependent respiratory failure - extubated 05/27
# MSSA/Klebsiella pneumonia
# Sepsis and septic shock -not present on admission
-Sputum culture with MSSA, K. Pneumoniae
-Urine culture growing E. coli and Enterococcus
-Maintain on Zosyn based on susceptibility review
-Continue weaning off oxygen as possible
#Paroxysmal atrial fibrillation
-On short acting diltiazem with holding parameters
-Currently requiring vasopressors and if have persistent RVR will require amiodarone
#Hypokalemia
-replace needed
#Hypomagnesemia
- monitor and replete
# Normocytic anemia
-appears chronic. Unclear etiology. Monitor for now.
Essential hypertension
DM2 with hyperglycemia - hemoglobin A1c. - 5.7
Depression/anxiety
Full code
Anticipated Discharge: 24 - 48 hours
Subjective/Interval History
-
Date of Service: May 31, 2023
Resting comfortably in bed
pulled out Dobbhoff in morning
no other issues overnight
Objective Data
-
Labs:
Laboratory Results
05/31/23
04:41
WBC 5.6
Hgb 9.4 L
Hct 28.6 L
Plt Count 398
Sodium 145
Potassium 3.6 D
Chloride 111 H
Carbon Dioxide 25
BUN 24 H
Creatinine 0.3 L
Glucose 214 H
Calcium 8.7
Vital Signs:
Vital Signs
Temp Pulse Resp BP Pulse Ox
98.8 F 74 17 149/68 97
05/31/23 07:45 05/31/23 09:06 05/31/23 04:30 05/31/23 09:06 05/31/23 04:30
I&O
05/30/23 05/31/23 06/01/23
06:59 06:59 06:59
Intake Total 200 / 200 1280 / 1280
Output Total 920 / 920 500 / 500
Balance -720 / -720 780 / 780
Review of Systems
-
Respiratory: Reports No Symptoms
Cardiac: Reports No Symptoms
Abdomen/GI: Reports No Symptoms
Physical Exam
-
General: No Apparent Distress
HEENT: Oxygen (1L on NC)
Respiratory: Rhonchi
Cardiac: Regular Rhythm, S1/S2 and Murmur
GI: Soft, Nondistended and Normal Bowel Sounds
Musculoskeletal: No Edema
Neuro: Awake, Alert and No Motor Deficits
--- NOTE | 2023-05-31 09:19 | PTOTSP ---
Dysphagia Therapy
Patient is at an elevated risk for silent aspiration given prolonged intubation (9) days this admission with subsequent dysphonia. She removed DHT and is now NPO without non-oral means. Video swallow study warranted to r/o silent aspiration and
determine if patient able to initiate an oral diet. Patient consented to this test.
Recommend:
1. NPO
2. Strict aspiration precautions and oral care with suction as needed
3. ARHP - Allow single ice chips sparingly for comfort with RN supervision.
4. Video swallow study
--- NOTE | 2023-05-31 09:43 | PTCARENOTE ---
Pt voided 150 on bed shoemaker, bladder scanned for 525ml. Pt assisted, moderate x1 to BSC and voided over 600ml and had a BM. Pt now sitting in the chair.
--- NOTE | 2023-05-31 10:52 | CM ---
CM met with patient and she indicated that she did not like [facility] or [facility]. Patient agreed that CM could talk to her POA/Friend about options for SNF care if therapy and physician continued to recommend. Patient did not have a very good opinion of SNF
options in the area. CM will continue to follow for discharge planning needs.
Plan; call to POA about SNF options for referral
[2023-05-31] MEDS: D5W 500 IV (11:25)
--- NOTE | 2023-05-31 12:01 | PTOTSP ---
Addendum entered and electronically signed by ST Yudith 05/31/23 12:05:
7. Supervision with meals
Original Note:
Video Swallow Study
Summary: Patient presents with WFL oral and mild pharyngeal dysphagia felt to be post-extubation related. There were episodes of deep penetration and silent aspiration of thin liquids which cleared with spontaneous and cued coughing. Mild
pharyngeal residue was reduced with double swallows. Esophageal retention noted t/o esophagus which could not be reduced with a liquid wash. Please see patient care note for full details of penetration/aspiration and swallowing physiology.
Recommend:
1. Regular, IDDSI Level 2 (Mildly Thick) Liquids
2. Medications - crushed in puree if medically cleared to do so
3. Strategies: upright to 90 degrees, small single sips/bites, slow rate, double swallows, remain upright for 30 minutes after PO as a reflux precaution
4. Oral care 3x daily
5. Aspiration Risk Hydration Protocol - single sips of water after oral care, in between meals, without meds - with supervision
6. Dysphagia therapy for education and instruction in compensations (i.e., single sips via cup, intermittent throat clear/cough) prior to liquid advancement.
[2023-05-31 12:05] LABS: Glucose - Point of Care 214 mg/dl (70-99)
--- NOTE | 2023-05-31 13:17 | PTCARENOTE ---
Pt OOB in chair, tolerated regular diet w/ nectar thick liquids. Report called to 4W VIJAY [place]. Pt to be transferred to [facility].
--- NOTE | 2023-05-31 13:30 | PTCARENOTE ---
05/30- Patient transferred and oriented to unit without issue. Telemetry #[id number]- currently NSR. AAOX3, flat affect. Able to stand and walk a couple steps from stretcher to bed. Skin CD[facility]/[place]. She denies any needs at this time.
[2023-05-31 16:50] LABS: Glucose - Point of Care 151 mg/dl (70-99)
[2023-05-31] MEDS: NOVOLOG FLEXPEN-LOW RESISTANCE SC (16:50)
[2023-05-31 17:36] LABS: Blood Urea Nitrogen 18 mg/dl (7-17); Calcium 8.6 mg/dl (8.4-10.2); Carbon Dioxide 23 mmol/L (22-30); Chloride 110 mmol/L (98-107); Estimated Creatinine Clearance 68 ml/min; Glucose 142 mg/dl (70-99); Potassium 3.4 mmol/L (3.5-5.1); Sodium 141 mmol/L (135-145); eGFR > 60.00
[2023-05-31 21:25] LABS: Glucose - Point of Care 133 mg/dl (70-99)
[2023-06-01] VITALS (7 sets, daily range): BP systolic 115–156; BP diastolic 69–91
[2023-06-01] MEDS: NOVOLOG FLEXPEN-LOW RESISTANCE SC ×4 (01:00→16:40)
[2023-06-01 07:05] LABS: Glucose - Point of Care 116 mg/dl (70-99)
[2023-06-01] MEDS: CARDIZEM 30 MG PO ×3 (08:27→22:00)
[2023-06-01] MEDS: ELIQUIS 5 MG TUBE ×2 (08:27→22:00)
[2023-06-01 09:03] LABS: Hematocrit 29.4 % (37.0-47.0); Hemoglobin 9.9 g/dL (12.0-16.0); Mean Corp Hgb Conc. 33.7 g/dL (33.0-37.0); Mean Corpuscular Hgb 30.6 pg (27.0-31.0); Mean Corpuscular Volume 90.7 fL (81.0-99.0); Mean Platelet Volume 9.8 fL (7.4-10.4); Platelet Count 514 10^3/uL (130-400); Red Blood Cell Count 3.24 10^6/uL (4.20-5.40); White Blood Cell Count 4.3 10^3/uL (4.8-10.8)
[2023-06-01 09:36] LABS: Blood Urea Nitrogen 15 mg/dl (7-17); Calcium 8.2 mg/dl (8.4-10.2); Carbon Dioxide 22 mmol/L (22-30); Chloride 110 mmol/L (98-107); Estimated Creatinine Clearance 68 ml/min; Glucose 121 mg/dl (70-99); Potassium 3.6 mmol/L (3.5-5.1); Sodium 138 mmol/L (135-145); eGFR > 60.00
--- NOTE | 2023-06-01 11:19 | CM ---
Patient seen bedside, CM list of SNF. Patient requesting referrals to be sent to local facilities other than [facility]. Patient anxious to leave hospital. CM will send referrals in [facility], patient will require authorization through insurance. CM
will continue to follow for discharge planning needs.
Plan; SNF pending accepting facility, will require auth.
[2023-06-01 12:00] LABS: Glucose - Point of Care 111 mg/dl (70-99)
[2023-06-01 13:17] LABS: Glucose - Point of Care 149 mg/dl (70-99)
--- NOTE | 2023-06-01 14:34 | PTCARENOTE ---
pt was found on the floor right next to her bed by Nurse Viviana. i also went over to see what was going on because i noticed patient was unusually tachycardic. when i went into the room patient was sitting on the floor. patient stated that she did
not hit her head and was trying to get up because her bed was wet and wanted to grab something on the table. vitals and blood sugar was taken, patients numbers were stable. pt was checked for open wounds or other injuries and none were found. pt was
placed back in bed with the bed alarm plugged in. pt was again trying to get out of bed so Med-Sitter was obtained for patient. Dr. Walker was made aware of situation. will continue to monitor patient.
--- NOTE | 2023-06-01 16:15 | W.PN.HOSP.TC ---
Today's Communication/Plan
-
d/c planning for snf rehab
Assessment / Plan
Assessment / Plan
# Acute TME - Resolved
-hyponatremia +/- Seizures cause of AMS
-MRI brain when able to tolerate
-EEG report reviewed
-Patient at times confused, some waxing waning mentation.
# Severe hyponatremia
-Admission blood sugar level of 107, likely causing seizures
- s/p 3% saline, and DDAVP
-Most likely SIADH
-TSH, cortisol WNL
-Double was taken out and patient currently on oral feeding
-Na back to 136,.
#mechanical fall
-Patient found on floor today
-No reported head injury
-Patient put on bed around
#Acute hypoxic respiratory failure
#Vent dependent respiratory failure - extubated 05/27
# MSSA/Klebsiella pneumonia
# Sepsis and septic shock -not present on admission
-Sputum culture with MSSA, K. Pneumoniae
-Urine culture growing E. coli and Enterococcus
-Maintain on Zosyn based on susceptibility review
-Continue weaning off oxygen as possible
#Paroxysmal atrial fibrillation
-On short acting diltiazem with holding parameters
-Currently requiring vasopressors and if have persistent RVR will require amiodarone
#Hypokalemia
-replace needed
#Hypomagnesemia
- monitor and replete
# Normocytic anemia
-appears chronic. Unclear etiology. Monitor for now.
Essential hypertension
DM2 with hyperglycemia - hemoglobin A1c. - 5.7
Depression/anxiety
Full code
Patient having significant weakness and required 2 person assistance to stand up. Long discussion with patient stating importance of rehab before patient going home. Patient at times understands the situation although keep fixating on going home.
I have discussed with case reviewer that patient is not in a position to go home and will need to go to rehab. Patient unfortunate does not have any family members to help either.
Anticipated Discharge: 24 - 48 hours
Subjective/Interval History
-
Date of Service: June 01, 2023
Patient wanting to go home, although unable to stand up without two-person assistance
Minimally disoriented at time
no acute issue reported
Objective Data
-
Labs:
Laboratory Results
06/01/23
07:48
WBC 4.3 L
Hgb 9.9 L
Hct 29.4 L
Plt Count 514 H D
Sodium 138
Potassium 3.6
Chloride 110 H
Carbon Dioxide 22
BUN 15
Creatinine 0.3 L
Glucose 121 H
Calcium 8.2 L
Vital Signs:
Vital Signs
Temp Pulse Resp BP Pulse Ox
98.0 F 87 16 115/91 98
06/01/23 15:54 06/01/23 15:54 06/01/23 15:54 06/01/23 15:54 06/01/23 15:54
I&O
05/31/23 06/01/23 06/02/23
06:59 06:59 06:59
Intake Total 1280 / 1280 675 / 675 400 / 400
Output Total 500 / 500 800 / 800
Balance 780 / 780 -125 / -125 400 / 400
Review of Systems
-
Respiratory: Reports No Symptoms
Cardiac: Reports No Symptoms
Abdomen/GI: Reports No Symptoms
Physical Exam
-
General: No Apparent Distress
HEENT: Oxygen (1L on NC)
Respiratory: Clear to Auscultation
Cardiac: Regular Rhythm, S1/S2 and Murmur
GI: Soft, Nondistended and Normal Bowel Sounds
Musculoskeletal: No Edema
Neuro: Awake, Alert and No Motor Deficits
[2023-06-01 16:19] LABS: Glucose - Point of Care 118 mg/dl (70-99)
[2023-06-01 21:17] LABS: Glucose - Point of Care 112 mg/dl (70-99)
[2023-06-02 03:00] VITALS: BP 133/66
[2023-06-02 07:00] VITALS: BP 139/78
[2023-06-02 08:14] LABS: Glucose - Point of Care 110 mg/dl (70-99)
[2023-06-02] MEDS: NOVOLOG FLEXPEN-LOW RESISTANCE SC ×2 (08:23→12:06)
[2023-06-02] MEDS: CARDIZEM 30 MG PO ×3 (08:24→20:59)
[2023-06-02] MEDS: ELIQUIS 5 MG TUBE ×2 (08:24→20:58)
[2023-06-02 08:43] LABS: Hematocrit 30.5 % (37.0-47.0); Hemoglobin 10.5 g/dL (12.0-16.0); Mean Corp Hgb Conc. 34.4 g/dL (33.0-37.0); Mean Corpuscular Hgb 30.9 pg (27.0-31.0); Mean Corpuscular Volume 89.7 fL (81.0-99.0); Mean Platelet Volume 9.6 fL (7.4-10.4); Platelet Count 569 10^3/uL (130-400); Red Cell Dist. Width 13.6 % (11.5-14.5); White Blood Cell Count 6.5 10^3/uL (4.8-10.8)
[2023-06-02 09:13] LABS: Blood Urea Nitrogen 14 mg/dl (7-17); Calcium 8.4 mg/dl (8.4-10.2); Carbon Dioxide 20 mmol/L (22-30); Chloride 107 mmol/L (98-107); Estimated Creatinine Clearance 68 ml/min; Glucose 102 mg/dl (70-99); Potassium 3.6 mmol/L (3.5-5.1); Sodium 135 mmol/L (135-145); eGFR > 60.00
[2023-06-02 11:27] VITALS: BP 176/110
[2023-06-02 12:04] LABS: Glucose - Point of Care 153 mg/dl (70-99)
--- NOTE | 2023-06-02 14:56 | W.PN.HOSP.TC ---
Today's Communication/Plan
-
discharge planning for rehab
start losartan/prn hydralazine
Assessment / Plan
Assessment / Plan
# Acute TME - Improved
-hyponatremia +/- Seizures cause of AMS
-MRI brain when able to tolerate
-EEG report reviewed
-Patient at times confused, some waxing waning mentation.
# Severe hyponatremia
-Admission blood sugar level of 107, likely causing seizures
- s/p 3% saline, and DDAVP
-Most likely SIADH
-TSH, cortisol WNL
-Double was taken out and patient currently on oral feeding
-Na back to 136,.
#Mechanical fall
-Patient found on floor sun.
-No reported head injury
-Patient put on bed alram and med sitter
#Acute hypoxic respiratory failure - resolved
#Vent dependent respiratory failure - extubated 05/27
# MSSA/Klebsiella pneumonia -Treated
# Sepsis and septic shock -not present on admission
-Sputum culture with MSSA, K. Pneumoniae
-Urine culture growing E. coli and Enterococcus
-Finished course of Zosyn.
#Paroxysmal atrial fibrillation
Uncontrolled Essential HTN
-resuming back on cardizem ER 120mg/d from tomorrow
-Adding losartan 50 mg daily to regimen
-As needed hydralazine for systolic blood pressure greater than 160
#Hypokalemia
-replace needed
#Hypomagnesemia
- monitor and replete
# Normocytic anemia
-appears chronic. Unclear etiology. Monitor for now.
DM2 with hyperglycemia - hemoglobin A1c. - 5.7
Depression/anxiety
Full code
05/31 Patient having significant weakness and required 2 person assistance to stand up. Long discussion with patient stating importance of rehab before patient going home. Patient at times understands the situation although keep fixating on going
home. I have discussed with showcase trimmer that patient is not in a position to go home and will need to go to rehab. Patient unfortunate does not have any family members to help either.
06/01 Re discussed importance of patient requiring rehab as patient had a fall yesterday despite being explicitly informed that patient does not have strength to stand up. Deciding on rehab facility.
Anticipated Discharge: > 48 hours
Subjective/Interval History
-
Date of Service: June 02, 2023
No issues overnight
Patient remains reserved for taking meds
Objective Data
-
Labs:
Laboratory Results
06/02/23
07:51
WBC 6.5
Hgb 10.5 L
Hct 30.5 L
Plt Count 569 H
Sodium 135
Potassium 3.6
Chloride 107
Carbon Dioxide 20 L
BUN 14
Creatinine 0.4 L
Glucose 102 H
Calcium 8.4
Vital Signs:
Vital Signs
Temp Pulse Resp BP Pulse Ox
98.3 F 97 16 176/110 97
06/02/23 11:27 06/02/23 11:27 06/02/23 11:27 06/02/23 11:27 06/02/23 11:27
I&O
06/01/23 06/02/23 06/03/23
06:59 06:59 06:59
Intake Total 675 / 675 1120 / 1120 300 / 300
Output Total 800 / 800
Balance -125 / -125 1120 / 1120 300 / 300
Review of Systems
-
Respiratory: Reports No Symptoms
Cardiac: Reports No Symptoms
Abdomen/GI: Reports No Symptoms
Physical Exam
-
General: No Apparent Distress
HEENT: Oxygen (1L on NC)
Neuro: Awake, Alert and No Motor Deficits
[2023-06-02 15:00] VITALS: BP 115/63
[2023-06-02 16:43] LABS: Glucose - Point of Care 207 mg/dl (70-99)
[2023-06-02] MEDS: NOVOLOG FLEXPEN-LOW RESISTANCE 2 UNITS SC (17:09)
[2023-06-02] MEDS: COZAAR 50 MG PO (17:09)
[2023-06-02 19:59] VITALS: BP 122/85
[2023-06-02 22:36] VITALS: BP 124/77
[2023-06-02 22:40] LABS: Glucose - Point of Care 160 mg/dl (70-99)
[2023-06-03 03:17] VITALS: BP 132/54
[2023-06-03 07:47] VITALS: BP 137/64
[2023-06-03 08:03] LABS: Glucose - Point of Care 175 mg/dl (70-99)
[2023-06-03 08:39] LABS: Hematocrit 30.5 % (37.0-47.0); Hemoglobin 10.5 g/dL (12.0-16.0); Mean Corp Hgb Conc. 34.4 g/dL (33.0-37.0); Mean Corpuscular Hgb 30.3 pg (27.0-31.0); Mean Corpuscular Volume 88.2 fL (81.0-99.0); Mean Platelet Volume 9.2 fL (7.4-10.4); Platelet Count 678 10^3/uL (130-400); Red Blood Cell Count 3.46 10^6/uL (4.20-5.40); Red Cell Dist. Width 13.7 % (11.5-14.5); White Blood Cell Count 5.9 10^3/uL (4.8-10.8)
[2023-06-03 08:56] LABS: Blood Urea Nitrogen 19 mg/dl (7-17); Calcium 8.7 mg/dl (8.4-10.2); Carbon Dioxide 22 mmol/L (22-30); Chloride 105 mmol/L (98-107); Estimated Creatinine Clearance 68 ml/min; Glucose 147 mg/dl (70-99); Potassium 3.2 mmol/L (3.5-5.1); Sodium 135 mmol/L (135-145); eGFR > 60.00
[2023-06-03] MEDS: COZAAR 50 MG PO (09:08)
[2023-06-03] MEDS: NOVOLOG FLEXPEN-LOW RESISTANCE 1 UNITS SC ×3 (09:09→17:21)
[2023-06-03] MEDS: ELIQUIS 5 MG TUBE (09:09)
[2023-06-03] MEDS: CARDIZEM CD 120 MG PO (09:09)
[2023-06-03 11:26] LABS: Glucose - Point of Care 185 mg/dl (70-99)
[2023-06-03 11:37] VITALS: BP 116/58
--- NOTE | 2023-06-03 13:29 | W.PN.HOSP.TC ---
Today's Communication/Plan
-
attempt to remove med sitter
k repletion
htn control
cm - for placement
MRi brain
Assessment / Plan
Assessment / Plan
# Acute TME - Improved
-hyponatremia +/- Seizures cause of AMS
-MRI brain when able to tolerate - will order again in hopes patient can tolerate it tomorrow
-EEG report reviewed
-Patient at times confused, some waxing waning mentation.
-wean off med sitter
# Severe hyponatremia
-Admission blood sugar level of 107, likely causing seizures
- s/p 3% saline, and DDAVP
-Most likely SIADH
-TSH, cortisol WNL
-Double was taken out and patient currently on oral feeding
-Na back to 136,.
#Hypokalemia
monitor and replete
#Mechanical fall
-Patient found on floor sun.
-No reported head injury
-Patient put on bed alram and med sitter
#Acute hypoxic respiratory failure - resolved
#Vent dependent respiratory failure - extubated 05/27
# MSSA/Klebsiella pneumonia -Treated
# Sepsis and septic shock -not present on admission
-Sputum culture with MSSA, K. Pneumoniae
-Urine culture growing E. coli and Enterococcus
-Finished course of Zosyn.
#Paroxysmal atrial fibrillation
# Uncontrolled Essential HTN
-Eliquis
-resuming back on cardizem ER 120mg
-Adding losartan 50 mg daily to regimen
-As needed hydralazine for systolic blood pressure greater than 160
#Hypokalemia
-replace needed
#Hypomagnesemia
- monitor and replete
# Normocytic anemia
-appears chronic. Unclear etiology. Monitor for now.
DM2 with hyperglycemia - hemoglobin A1c. - 5.7
Depression/anxiety
DVT ppx
Eliquis
Full code
05/31 Patient having significant weakness and required 2 person assistance to stand up. Long discussion with patient stating importance of rehab before patient going home. Patient at times understands the situation although keep fixating on going
home. I have discussed with high risk case manager that patient is not in a position to go home and will need to go to rehab. Patient unfortunate does not have any family members to help either.
06/01 Re discussed importance of patient requiring rehab as patient had a fall yesterday despite being explicitly informed that patient does not have strength to stand up. Deciding on rehab facility.
06/02 - k repletion - f/u rehab placement discussion
Anticipated Discharge: 24 - 48 hours
Subjective/Interval History
-
Date of Service: June 03, 2023
no acute events; attempt to take off med sitter
Objective Data
-
Labs:
Laboratory Results
06/03/23
08:26
WBC 5.9
Hgb 10.5 L
Hct 30.5 L
Plt Count 678 H
Sodium 135
Potassium 3.2 L
Chloride 105
Carbon Dioxide 22
BUN 19 H
Creatinine 0.4 L
Glucose 147 H
Calcium 8.7
Vital Signs:
Vital Signs
Temp Pulse Resp BP Pulse Ox
98.3 F 89 16 116/58 99
06/03/23 11:37 06/03/23 11:37 06/03/23 11:37 06/03/23 11:37 06/03/23 11:37
I&O
06/02/23 06/03/23 06/04/23
06:59 06:59 06:59
Intake Total 1120 / 1120 720 / 720 480 / 480
Balance 1120 / 1120 720 / 720 480 / 480
Review of Systems
-
Respiratory: Reports No Symptoms
Cardiac: Reports No Symptoms
Abdomen/GI: Reports No Symptoms
Data Reviewed
-
Diagnostic Radiology: Image personally visualized and interpreted and Report Reviewed by me
CT Scan: Image personally visualized and interpreted and Report Reviewed by me
Labs: Labs Reviewed by me
[2023-06-03 15:00] VITALS: BP 115/69
[2023-06-03] MEDS: KCL 40 MEQ PO (16:04)
[2023-06-03 17:04] LABS: Glucose - Point of Care 155 mg/dl (70-99)
[2023-06-03 19:41] VITALS: BP 109/55
[2023-06-03] MEDS: ELIQUIS 5 MG PO (20:28)
[2023-06-03 21:11] LABS: Glucose - Point of Care 127 mg/dl (70-99)
[2023-06-03 23:14] VITALS: BP 121/59
[2023-06-04 03:52] VITALS: BP 115/60
[2023-06-04 03:53] VITALS: BMI 19.7
[2023-06-04 07:01] LABS: Glucose - Point of Care 125 mg/dl (70-99)
[2023-06-04] MEDS: NOVOLOG FLEXPEN-LOW RESISTANCE SC ×3 (07:40→17:15)
[2023-06-04 07:49] VITALS: BP 120/66
[2023-06-04] MEDS: ELIQUIS 5 MG PO ×2 (08:18→20:13)
[2023-06-04] MEDS: COZAAR 50 MG PO (08:18)
[2023-06-04] MEDS: CARDIZEM CD 120 MG PO (08:18)
[2023-06-04 08:52] LABS: Hemoglobin 9.6 g/dL (12.0-16.0); Mean Corp Hgb Conc. 34.3 g/dL (33.0-37.0); Mean Corpuscular Volume 90.3 fL (81.0-99.0); Mean Platelet Volume 9.5 fL (7.4-10.4); Platelet Count 644 10^3/uL (130-400); Red Cell Dist. Width 14.2 % (11.5-14.5); White Blood Cell Count 4.1 10^3/uL (4.8-10.8)
[2023-06-04 09:22] LABS: ALT (SGPT) 33 U/L (0-35); AST (SGOT) 20 U/L (14-36); Albumin 2.9 g/dl (3.5-5.0); Alkaline Phosphatase 127 U/L (38-126); Blood Urea Nitrogen 18 mg/dl (7-17); Calcium 8.4 mg/dl (8.4-10.2); Carbon Dioxide 23 mmol/L (22-30); Chloride 108 mmol/L (98-107); Estimated Creatinine Clearance 67 ml/min; Glucose 113 mg/dl (70-99); Potassium 4.1 mmol/L (3.5-5.1); Sodium 135 mmol/L (135-145); Total Bilirubin 0.2 mg/dl (0.2-1.3); Total Protein 5.2 g/dl (6.3-8.2); eGFR > 60.00
[2023-06-04 11:41] LABS: Glucose - Point of Care 133 mg/dl (70-99)
[2023-06-04 13:03] VITALS: BP 106/75; BP 136/73; PULSE 107; PULSE 116; O2SAT 100
--- NOTE | 2023-06-04 13:13 | CM ---
Addendum entered by Angie Marquez 06/04/23 15:55:
CM with patient and friend Janet, patient refusing SNF since [facility] can not accept. Refusing list of private caregivers from , will call her neighbor who is a nurse to pay for private care, will agree to referral to [facility]. TT sent to
Hospitalist with update. Friend Janet can provide transportation home tomorrow before 4 pm as she has an appointment.
Plan; Home with private caregivers (patient refusing list from CM), and [facility].
Addendum entered by Angie Marquez 06/04/23 14:42:
CM spoke with [facility], unable to accept patient. CM left message for patients friend, Janet [phone] with update. CM discussed [facility] can accept patient tomorrow and will try to obtain authorization if agreeable to facility,
requesting a call back.
Original Note:
Patient seen bedside with friend. Patient friend is extremely upset that patient has not been seen by PT/OT. CM offered support to patient and friend, discussed that the hospital has been extremely full but will reach out to therapy to have patient
seen. TT sent to PT/OT to see if patient can be seen for updated recommendations needed for auth for SNF. Patient reports she would like to go to [facility] and does not have any backups. CM discussed [facility] can offer patient a a bed
tomorrow, phone number and address provided to friend. Patient repeating several times that she is done and is very frustrated.
CM spoke with PT/OT, recommending SNF vs home with 24/ care. Patient reports she has several neighbors who are nurses who she could potentially ask to stay with her. CM discussed options with patient and friend. Friend reported to CM previously
that patient has a lot of money. Patient would like to see if [facility] can offer a bed. Call placed to Yadira in admissions at [facility], will review referral. CM discussed that [facility] can offer a bed tomorrow. Patient keeps
repeating 'this is bullshit', 'heads are going to roll' and pretending to spit as patient reports she has been through this before with her parents when discussing home with VN services. CM will continue to follow for discharge planning needs.
Plan; SNF pending accepting facility, will require auth, vs home with 24/7 care and VN.
--- NOTE | 2023-06-04 14:31 | W.PN.HOSP.TC ---
Today's Communication/Plan
-
mri brain
dc ready thereafter, cm aware
Assessment / Plan
Assessment / Plan
# Acute TME - resolved
-hyponatremia +/- Seizures cause of AMS
-MRI brain - amenable now
-EEG report reviewed
-off med sitter
# Severe hyponatremia, resolved
-Likely cause of ?seizures
- patient has been taking homeopathic meds which most likely attributed to this
- s/p 3% saline, and DDAVP
-Most likely SIADH
-TSH, cortisol WNL
-Double was taken out and patient currently on oral feeding
-Na back to 136,.
#Hypokalemia
monitor and replete
#Mechanical fall
-Patient found on floor sun.
-No reported head injury
-Patient put on bed alram and med sitter
#Acute hypoxic respiratory failure - resolved
#Vent dependent respiratory failure - extubated 05/27
# MSSA/Klebsiella pneumonia -Treated
# Sepsis and septic shock -not present on admission
-Sputum culture with MSSA, K. Pneumoniae
-Urine culture growing E. coli and Enterococcus
-Finished course of Zosyn.
#Paroxysmal atrial fibrillation
# Uncontrolled Essential HTN
-Eliquis
-resuming back on cardizem ER 120mg
-Adding losartan 50 mg daily to regimen
-As needed hydralazine for systolic blood pressure greater than 160
#Hypokalemia
-replace needed
#Hypomagnesemia
- monitor and replete
# Normocytic anemia
-appears chronic. Unclear etiology. Monitor for now.
DM2 with hyperglycemia - hemoglobin A1c. - 5.7
Depression/anxiety
DVT ppx
Eliquis
Full code
Anticipated Discharge: Within 24 hours
Subjective/Interval History
-
Date of Service: June 04, 2023
delirium resolved
Objective Data
-
Labs:
Laboratory Results
06/04/23
08:00
WBC 4.1 L
Hgb 9.6 L
Hct 28.0 L
Plt Count 644 H
Sodium 135
Potassium 4.1 D
Chloride 108 H
Carbon Dioxide 23
BUN 18 H
Creatinine 0.4 L
Glucose 113 H
Calcium 8.4
Total Bilirubin 0.2
AST 20
ALT 33
Alkaline Phosphatase 127 H
Vital Signs:
Vital Signs
Temp Pulse Resp BP Pulse Ox
97.7 F 87 18 120/66 99
06/04/23 07:49 06/04/23 08:18 06/04/23 07:49 06/04/23 08:18 06/04/23 07:49
I&O
06/03/23 06/04/23 06/05/23
06:59 06:59 06:59
Intake Total 720 / 720 1030 / 1030
Balance 720 / 720 1030 / 1030
Review of Systems
-
Respiratory: Reports No Symptoms
Cardiac: Reports No Symptoms
Abdomen/GI: Reports No Symptoms
Physical Exam
-
Neuro: Awake, Alert and No Motor Deficits
Data Reviewed
-
Diagnostic Radiology: Image personally visualized and interpreted and Report Reviewed by me
CT Scan: Image personally visualized and interpreted and Report Reviewed by me
Labs: Labs Reviewed by me
[2023-06-04 16:01] VITALS: BP 95/60
[2023-06-04 17:02] LABS: Glucose - Point of Care 140 mg/dl (70-99)
[2023-06-04 21:25] LABS: Glucose - Point of Care 184 mg/dl (70-99)
[2023-06-04 23:38] VITALS: BP 109/55
[2023-06-05 04:49] VITALS: BMI 19.7
[2023-06-05 07:05] LABS: Glucose - Point of Care 123 mg/dl (70-99)
[2023-06-05 08:00] VITALS: BP 107/57
[2023-06-05] MEDS: NOVOLOG FLEXPEN-LOW RESISTANCE SC (08:44)
[2023-06-05] MEDS: COZAAR 50 MG PO (09:05)
[2023-06-05] MEDS: ELIQUIS 5 MG PO (09:05)
[2023-06-05] MEDS: CARDIZEM CD 120 MG PO (09:05)
--- NOTE | 2023-06-05 10:15 | PTOTSP ---
Speech Language Pathology
Pt seen for dysphagia tx. Currently ordered regular solids/mildly thick liquids. Friend has been bringing in water bottles, and pt has been drinking thin water in addition to thickened liquids on tray. Reviewed results/recommendations from [facility]
and suspected post-extubation dysphagia. Seen with sips of water with no wet vocal quality or change in breath sounds. Suspect resolved post-extubation dysphagia.
Recommend:
(1) Upgrade to regular solids/thin liquids
(2) General aspiration precautions
(3) Meds as tolerated
(4) COMBUSTION ENGINEER to sign off. Please reconsult as indicated
--- NOTE | 2023-06-05 11:29 | CM ---
Addendum entered by Angie Marquez 06/05/23 16:27:
Patient very upset, reports she is waiting for her MRI results and no one can give her answers. Patient reports her two friends will be coming to bring her home. CM attempted to de escalate patient. Patient reports she is 'done' and 'never returning
to [facility]'.
Original Note:
Patient seen bedside, discussed plan for discharge home today with [facility] and 04/09 care. Patient reports her friend Viviana will be staying with her for a period of time, she can also contact her neighbor Jennifer who is a nurse, or her friend Janet. CM
again offered a list of private caregivers to patient, patient declining and reports her friend will be with her. CM reiterated the importance of having someone with patient at all times to ensure safety of patient. Patient and friend Janet
requesting walker, will be provided by PT with script from Hospitalist. Message sent to [facility] with update on patient discharge. IMM reviewed, signed, placed in patients chart. Patient reports her friend will provide transportation home. CM will
continue to follow for discharge planning needs.
Plan; home with [facility] and friend to stay over.
[2023-06-05 11:47] LABS: Hematocrit 31.9 % (37.0-47.0); Hemoglobin 10.8 g/dL (12.0-16.0); Mean Corp Hgb Conc. 33.9 g/dL (33.0-37.0); Mean Corpuscular Hgb 30.9 pg (27.0-31.0); Mean Corpuscular Volume 91.4 fL (81.0-99.0); Mean Platelet Volume 9.2 fL (7.4-10.4); Platelet Count 685 10^3/uL (130-400); Red Blood Cell Count 3.49 10^6/uL (4.20-5.40); Red Cell Dist. Width 14.5 % (11.5-14.5); White Blood Cell Count 4.3 10^3/uL (4.8-10.8)
[2023-06-05 12:06] LABS: Glucose - Point of Care 157 mg/dl (70-99)
--- NOTE | 2023-06-05 12:16 | W.PN.HOSP.TC ---
Addendum entered and electronically signed by Andrey Curry MD 06/05/23 16:14:
[id number]
Original Note:
Today's Communication/Plan
-
dc on Eliquis, Dilt, Losartan
avoid homeopathic meds
F/u BMP in 3-5 days
f/u pcp within 1 week
Assessment / Plan
Assessment / Plan
General: No Apparent Distress
HEENT: Oxygen (1L on NC)
Respiratory: Clear to Auscultation
Cardiac: Regular Rhythm, S1/S2 and Murmur
GI: Soft, Nondistended and Normal Bowel Sounds
Musculoskeletal: No Edema
Neuro: Awake, Alert and No Motor Deficits
# Acute TME - resolved
-hyponatremia +/- Seizures cause of AMS
-MRI brain - amenable now - can dc thereafter
-EEG report reviewed
-off med sitter
# Severe hyponatremia, resolved
-Likely cause of ?seizures
- patient has been taking homeopathic meds which most likely attributed to this - educated to avoid and if taking, please f/u lab work diligently
- s/p 3% saline, and DDAVP
-Most likely SIADH
-TSH, cortisol WNL
-Double was taken out and patient currently on oral feeding
-Na back to 136,.
#Hypokalemia
monitor and replete
#Mechanical fall
-Patient found on floor sun.
-No reported head injury
-Patient put on bed alram and med sitter
-stable
#Acute hypoxic respiratory failure - resolved
#Vent dependent respiratory failure - extubated 05/27
# MSSA/Klebsiella pneumonia -Treated
# Sepsis and septic shock -not present on admission
-Sputum culture with MSSA, K. Pneumoniae
-Urine culture growing E. coli and Enterococcus
-Finished course of Zosyn.
#Paroxysmal atrial fibrillation
# Uncontrolled Essential HTN
-Eliquis
-resuming back on cardizem ER 120mg
-Adding losartan 25 mg daily to regimen
#Hypokalemia
-replace needed
#Hypomagnesemia
- monitor and replete
# Normocytic anemia
-appears chronic. Unclear etiology. Monitor for now.
DM2 with hyperglycemia - hemoglobin A1c. - 5.7
Depression/anxiety
DVT ppx
Eliquis
Full code
More than 30 minutes spent in discharge including
Final examination of the patient
Summarizing hospital stay
Instructions for continuing care to all relevant caregivers
Preparation of discharge records, prescriptions, and referral forms
Total time spent (35 in minutes):
Anticipated Discharge: Today
Subjective/Interval History
-
Date of Service: June 05, 2023
no acute events, pending mri
Objective Data
-
Labs:
Laboratory Results
06/05/23
11:37
WBC 4.3 L
Hgb 10.8 L
Hct 31.9 L
Plt Count 685 H
Sodium Pending
Potassium Pending
Chloride Pending
Carbon Dioxide Pending
BUN Pending
Creatinine Pending
Glucose Pending
Calcium Pending
Total Bilirubin Pending
AST Pending
ALT Pending
Alkaline Phosphatase Pending
Vital Signs:
Vital Signs
Temp Pulse Resp BP Pulse Ox
98.3 F 74 16 107/57 99
06/05/23 08:00 06/05/23 09:05 06/05/23 08:00 06/05/23 09:05 06/05/23 08:00
I&O
06/04/23 06/05/23 06/06/23
06:59 06:59 06:59
Intake Total 1030 / 1030 1150 / 1150
Balance 0 / 1030 1150 / 1150
Review of Systems
-
Respiratory: Reports No Symptoms
Cardiac: Reports No Symptoms
Abdomen/GI: Reports No Symptoms
Physical Exam
-
Neuro: Awake, Alert and No Motor Deficits
Data Reviewed
-
Diagnostic Radiology: Image personally visualized and interpreted and Report Reviewed by me
CT Scan: Image personally visualized and interpreted and Report Reviewed by me
Labs: Labs Reviewed by me
--- NOTE | 2023-06-05 12:21 | W.DS.TRANS ---
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
-
Discharge Instructions:
Discharge Diagnosis/Procedures # Acute TME
# Severe hyponatremia
#Acute hypoxic respiratory failure - resolved
#Vent dependent respiratory failure - extubated
05/27
#Paroxysmal atrial fibrillation
#Septic Shock
Diet Low Cholesterol,Low Fat
Activity As tolerated
Blood Work bmp in 3-5 days with pcp and regularly; please
avoid homeopathic meds if possible and if taking
- then please check lab work closely
Instructions:
Stand-Alone Forms:
Changes to Home Medications: Yes
Discharge Medications:
DC Medications w/original date entered in [facility]
apixaban 5 mg tablet (Eliquis) 5 mg PO BID Blood clot prevention/tx #60 tabs 06/05/23
diltiazem HCl 120 mg capsule,extended release 24 hr 120 mg PO DAILY Heart Disease/Condition 30 days #30 caps 06/05/23
losartan 25 mg tablet 25 mg PO DAILY #30 tabs 06/05/23
Home Medication Changes
losartan 25 mg tablet 25 mg PO DAILY #30 tabs 06/05/23
Pending Results: No
[2023-06-05] MEDS: NOVOLOG FLEXPEN-LOW RESISTANCE 1 UNITS SC (12:55)
[2023-06-05 12:58] LABS: ALT (SGPT) 28 U/L (0-35); AST (SGOT) 20 U/L (14-36); Albumin 3.5 g/dl (3.5-5.0); Alkaline Phosphatase 122 U/L (38-126); Blood Urea Nitrogen 18 mg/dl (7-17); Calcium 9.1 mg/dl (8.4-10.2); Carbon Dioxide 20 mmol/L (22-30); Chloride 103 mmol/L (98-107); Estimated Creatinine Clearance 67 ml/min; Glucose 146 mg/dl (70-99); Potassium 4.3 mmol/L (3.5-5.1); Sodium 132 mmol/L (135-145); Total Bilirubin 0.3 mg/dl (0.2-1.3); Total Protein 5.9 g/dl (6.3-8.2); eGFR > 60.00
--- NOTE | 2023-06-05 14:46 | VNURNOTE ---
Home Health Liaison met with patient at 1145 to discuss [facility] nurse/therapy, visits, schedule and homebound status. Patient is agreeable and understands that visits at home will be 2-3 x per week to assess and teach medical management.
[facility] brochure provided with contact information. Patient is aware that [facility] will contact them for start of care in 1-2 days after discharge from .
[facility] referral completed in [facility].
[2023-06-05 16:26] VITALS: BP 104/59
[2023-06-05 16:43] LABS: Glucose - Point of Care 142 mg/dl (70-99)
--- NOTE | 2023-06-05 17:38 | PTCARENOTE ---
Rn Flow civil engineering intern- Patient and daughter are requesting patient's medical record. Patient and daughter very agitated. Patient states that she signed record relaease and it was sent to medical records.
== END 2023-06-05 17:56 | disposition home health service (06) | DRG 643 ==
LOC: 4 WEST ACU 18:28
PROVIDERS: Hospitalist; Internal Medicine Critical Care Medicine; Nurse Practitioner Family; Nurse Practitioner Primary Care; Student in an Organized Health Care Education/Training Program; ADMITTING PHYSICIAN Hospitalist; ATTENDING PHYSICIAN Internal Medicine; CONSULT PHYSICIAN Internal Medicine; CONSULT PHYSICIAN Psychiatry & Neurology Neurology; EMERGENCY PHYSICIAN Emergency Medicine; FAMILY PHYSICIAN Nurse Practitioner Family; OTHER PHYSICIAN Internal Medicine Critical Care Medicine
PROC: 5A1955Z Respiratory Ventilation, Greater than 96 Consecutive Hours (ICD-10-PCS; 2023-05-19)
PROC: 0BH17EZ Insertion of Endotracheal Airway into Trachea, Via Natural or Artificial Opening (ICD-10-PCS; 2023-05-19)
PROC: 03HY32Z Insertion of Monitoring Device into Upper Artery, Percutaneous Approach (ICD-10-PCS; 2023-05-20)
PROC: 02HV33Z Insertion of Infusion Device into Superior Vena Cava, Percutaneous Approach (ICD-10-PCS; 2023-05-22)
DX: E22.2 Syndrome of inappropriate secretion of antidiuretic hormone (principal); A41.9 Sepsis, unspecified organism; G92.8 Other toxic encephalopathy; J96.02 Acute respiratory failure with hypercapnia; J96.01 Acute respiratory failure with hypoxia; R65.21 Severe sepsis with septic shock; J15.0 Pneumonia due to Klebsiella pneumoniae; K92.0 Hematemesis; R56.9 Unspecified convulsions; I10 Essential (primary) hypertension; I48.0 Paroxysmal atrial fibrillation; E78.5 Hyperlipidemia, unspecified; E87.6 Hypokalemia; D64.9 Anemia, unspecified; E11.65 Type 2 diabetes mellitus with hyperglycemia; F41.1 Generalized anxiety disorder; K59.00 Constipation, unspecified; I44.0 Atrioventricular block, first degree; R68.0 Hypothermia, not associated with low environmental temperature; E83.42 Hypomagnesemia; F31.9 Bipolar disorder, unspecified; Z79.01 Long term (current) use of anticoagulants; Z79.899 Other long term (current) drug therapy; Z91.148 Patient's other noncompliance with medication regimen for other reason
CPT/HCPCS: 31500; 36600; 70450; 70551; 71045; 74018; 74230; 80048; 80053; 81003; 81015; 82140; 82330; 82533; 82805; 82962; 83036; 83605; 83690; 83735; 83930; 83935; 84100; 84132; 84295; 84300; 84302; 84443; 84478; 84484; 85025; 85027; 85610; 85730; 86850; 86900; 86901; 87040; 87070; 87077; 87086; 87147; 87186; 87205; 87641; 92526; 92610; 92611; 93005; 93971; 94002; 94003; 94640; 95813; 95816; 96365; 96375; 96376; 97116; 97163; 97167; 97530; 99291; J2597; J2997